=== PATIENT | male | born 1970 | race Caucasian/White ===

== ENCOUNTER 2017-04-09 22:46 | Emergency (ER) | payer SELFPAY ==
[~2017-04-09] VITALS: Ht 185.4 cm; Wt 83.5 kg
[~2017-04-09 22:46] MED LIST: AMIODARONE HCL200 MG PO; ASPIRIN CHEW81 MG PO; COREG3.125 MG PO; CYCLOBENZAPRINE10 MG PO; LASIX40 MG PO; SPIRONOLACTONE25 MG PO
[2017-04-09] MEDS ORDERED: ASPIRIN 81 MG CHEW TAB PO ONE (23:15)
[2017-04-09 23:24] LABS: BASOPHILS # (AUTO) 0.1 (0.0-0.1); EOSINOPHILS # (AUTO) 0.1 (0.0-0.4); EOSINOPHILS % 0.9 % (0.0-6.0); HEMATOCRIT 40.7 % (38.2-49.6); HEMOGLOBIN 12.8 g/dL (14.0-18.0); LYMPHOCYTES # (AUTO) 1.9 (1.0-3.2); LYMPHOCYTES % 27.3 % (18.0-39.1); MEAN CORPUSCULAR HEMOGLOBIN 31.6 pg (28-32); MEAN CORPUSCULAR HGB CONC 31.4 g/dL (31-35); MEAN CORPUSCULAR VOLUME 100.5 fL (81-99); MONOCYTES % 14.2 % (4.4-11.3); NEUTROPHILS # (AUTO) 3.9 (2.1-6.9); NEUTROPHILS % 56.3 % (38.7-80.0); PLATELET COUNT 221 x10e3/uL (140-360); RED BLOOD COUNT 4.05 x10e6/uL (4.3-5.7); RED CELL DISTRIBUTION WIDTH 15.9 % (11.7-14.4)
[2017-04-09 23:28] LABS: INR 1.72; PROTHROMBIN TIME 18.9 seconds (11.9-14.5)
[2017-04-09 23:29] LABS: PARTIAL THROMBOPLASTIN TIME 29.1 seconds (23.8-35.5)
[2017-04-09 23:47] LABS: ALBUMIN 3.5 g/dL (3.5-5.0); ALBUMIN/GLOBULIN RATIO 1.1 (0.8-2.0); ANION GAP 17.6 mmol/L (8-16); CALCIUM 8.5 mg/dL (8.4-10.2); CREATININE, SERUM 1.68 mg/dL (0.72-1.25); MAGNESIUM 2.1 MG/DL (1.3-2.1); POTASSIUM 4.6 mmol/L (3.5-5.1)
[2017-04-09 23:53] LABS: CREATINE KINASE MB 8.2 ng/mL (0.00-5.00)
[2017-04-10] MEDS ORDERED: DIATRIZOATE MEGL/DIATRIZOA SOD 30 ML BTL PO ONE (00:10)
--- NOTE | 2017-04-10 00:11 | Diagnostic Imaging Report ---
EXAMINATION: CHEST 2 VIEWS INDICATION: Shortness of breath, CHF COMPARISON: 09/21/2016 FINDINGS: TUBES and LINES: None. LUNGS: Lungs are not well inflated. There are bibasilar atelectasis. There is mild prominence of the central pulmonary vasculature, consistent with pulmonary venous congestion. PLEURA: No pleural effusion or pneumothorax. HEART AND MEDIASTINUM: Cardiac size is moderately enlarged. BONES AND SOFT TISSUES: No acute osseous lesion. Soft tissues are unremarkable. UPPER ABDOMEN: No free air under the diaphragm. IMPRESSION: 1. No acute thoracic abnormality. 2. Moderate enlargement of the heart without evidence of edema Signed by: Dr. Iron Chau M.D. on 04/10/2017 12:08 AM
[2017-04-10] MEDS ORDERED: CEFEPIME HCL 2 GM VIAL IV STA (00:33)
[2017-04-10] MEDS ORDERED: VANCOMYCIN 1GM/NS 250 ML 250 ML IV STA (00:33)
[2017-04-10 00:40] LABS: ACETAMINOPHEN < 3 ug/mL (10-30); SALICYLATE < 5.0 mg/dL (0-30)
[2017-04-10] MEDS ORDERED: FUROSEMIDE INJ 10 MG/ML 2 ML VIAL IV ONE (00:45)
[2017-04-10 01:24] LABS: CLARITY,URINE CLEAR (CLEAR); COLOR,URINE YELLOW (YELLOW); KETONES,URINE NEGATIVE (NEGATIVE); LEUKOCYTE ESTERASE ,URINE NEGATIVE (NEGATIVE); NITRITE,URINE NEGATIVE (NEGATIVE); URINE UROBILINOGEN 1 mg/dL (0.2 - 1)
[2017-04-10 01:25] LABS: AMPHETAMINES SCREEN,URINE NEGATIVE (NEGATIVE); PHENCYCLIDINE SCREEN,URINE NEGATIVE (NEGATIVE)
[2017-04-10 01:26] LABS: BENZODIAZEPINES SCREEN,URINE NEGATIVE (NEGATIVE)
[2017-04-10 01:27] LABS: BILIRUBIN,URINE 1+ (NEGATIVE); PROTEIN,URINE DIPSTICK 2+ (NEGATIVE)
[2017-04-10 01:34] LABS: BACTERIA,URINE FEW /HPF; EPITHELIAL CELLS,URINE FEW /LPF; HYALINE CASTS >15 (0-1); RBC,URINE 0-5 /HPF (0-5)
--- NOTE | 2017-04-10 02:21 | Diagnostic Imaging Report ---
EXAM: CT Abdomen and Pelvis WITHOUT contrast INDICATION: Abdominal distention COMPARISON: None. TECHNIQUE: Abdomen and pelvis were scanned utilizing a multidetector helical scanner from the lung base to the pubic symphysis without administration of IV contrast. Absence of intravenous contrast decreases sensitivity for detection of focal lesions and vascular pathology. Coronal and sagittal reformations were obtained. Routine protocol was performed. IV CONTRAST: None. ORAL CONTRAST: Gastrografin RADIATION DOSE: Total DLP: 625.42 mGy*cm Estimated effective dose: (DLP x 0.015 x size factor) mSv COMPLICATIONS: None FINDINGS: LINES and TUBES: None. LOWER THORAX: Moderate, global enlargement of the heart also seated with minimal mosaic attenuation of the lungs HEPATOBILIARY: No focal hepatic lesions. No biliary ductal dilation. GALLBLADDER: No radio-opaque stones or sludge. The gallbladder is partially distended limiting the evaluation SPLEEN: No splenomegaly. PANCREAS: No focal masses or ductal dilatation. ADRENALS: No adrenal nodules KIDNEYS/URETERS: No hydronephrosis. No cystic or solid mass lesions. No stones. GI TRACT: No abnormal distention, wall thickening, or evidence of bowel obstruction. There are diverticula within the colon without evidence of diverticulitis. Appendix is not clearly identified. There is however no fat stranding or adenopathy in the right lower quadrant to suggest appendicitis. PELVIC ORGANS/BLADDER: Unremarkable. LYMPH NODES: No lymphadenopathy. VESSELS: Unremarkable. PERITONEUM / RETROPERITONEUM: There is moderate of amount of free fluid in the abdomen and pelvis. BONES: Unremarkable. SOFT TISSUES: There is mild diffuse anarsarca. IMPRESSION: 1. Peritoneal and retroperitoneal edema associated with small amount of ascites and mild anasarca is suggestive of congestive heart failure. 2. Minimal mosaic attenuation of the lungs suggestive of early pulmonary edema Signed by: Dr. Iron Chau M.D. on 04/10/2017 2:17 AM
== END 2017-04-10 02:40 | disposition short-term general hospital (02) ==
LOC: ER 22:51
DX: R06.00 Dyspnea, unspecified (principal); I50.43 Acute on chronic combined systolic (congestive) and diastolic (congestive) heart failure; I50.1 Left ventricular failure, unspecified; N28.9 Disorder of kidney and ureter, unspecified; B17.9 Acute viral hepatitis, unspecified; I10 Essential (primary) hypertension
CPT/HCPCS: 36415; 71046; 74176; 80053; 80307; 80320; 80329 ×2; 81001; 82140; 82550; 82553; 83605; 83690; 83735; 83880; 84484; 85025; 85610; 85730; 87040; 87071; 87086; 87205; 93005; 99284; J0692; J1940; J3370

== ENCOUNTER 2018-09-05 17:38 | Inpatient (IN) | payer MEDICARE, OTHER ==
[~2018-09-05] VITALS: Ht 185.4 cm; Wt 87.1 kg
--- OUTSIDE RECORDS SUMMARY | 2018-09-05 17:41 | XMS REPORT | Clinical Summary ---
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 Active amiodarone (PACERONE) 200 Take 1 tablet 90 tablet 0 201 MG tablet (200 mg 8 total) by mouth daily. Active ferrous sulfate 325 (65 Take 325 mg 0 FE) MG tablet by mouth daily with breakfast. Active coenzyme Q10 100 mg Take 100 mg 0 capsule by mouth daily. Active omega-3 fatty acids (FISH Take 500 mg 0 OIL) 500 mg Cap by mouth daily. Active garlic 500 mg Cap Take 1 0 capsule by mouth daily. 04/15/2018 metoprolol (TOPROL-XL) 50 Take 1 tablet 90 tablet 0 201 MG 24 hr tablet (50 mg total) 8 by mouth daily. 04/14/2018 bumetanide (BUMEX) 1 MG Take 1 tablet 90 tablet 0 tablet (1 mg total) 8 by mouth 2 (two) times daily. 04/15/2018 lisinopril Take 1 tablet 90 tablet 0 (PRINIVIL,ZESTRIL) 5 MG (5 mg total) 8 tablet by mouth daily. 04/14/2018 spironolactone Take 1 tablet 90 tablet 3 (ALDACTONE) 25 MG tablet (25 mg total) 8 by mouth daily. Active Problems Problem Noted Date PAH (pulmonary artery hypertension) 05/04/2017 Smoker 05/04/2017 Substance abuse 05/04/2017 Overview: Quit 2 years ago H/O medication noncompliance 04/10/2017 Atrial fibrillation 04/10/2017 Chronic combined systolic and diastolic CHF (congestive heart failure) 04/10/2017 Family History Medical History Relation Name Comments Hyperlipidemia Father Relation Name Status Comments Father Social History Date Tobacco Use Types Packs/Day Years Used Current Every Day Smoker Cigarettes 0.5 10 Smokeless Tobacco: Never Used Tobacco Cessation: Ready to Quit: Yes; Counseling Given: Yes Alcohol Use Drinks/Week oz/Week Comments No quit drinking six years ago Sex Assigned at Date Recorded Not on file Industry Job Start Date Occupation Not on file Not on file Not on file Travel End Travel History Travel Start No recent travel history available. Last Filed Vital Signs Not on file Plan of Treatment Not on file Results Not on fileafter 09/04/2017 Advance Directives For more information, please contact: [facility] [address] [place] [address] Date Inactivated Comments Code Status Date Activated 04/14/2017 12:58 PM Full Code 04/10/2017 4:47 AM This code status was determined by: Patient
--- OUTSIDE RECORDS SUMMARY | 2018-09-05 17:41 | XMS REPORT | Clinical Summary ---
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 Name Role Phone Asked, No Pcp PCP Unavailable Allergies No Known Allergies Medications No known medications Active Problems Problem Noted Date Alcohol use disorder, severe, dependence 07/17/2016 Antisocial personality disorder in adult 07/17/2016 Cellulitis of lower extremity 07/17/2016 Acute on chronic congestive heart failure 07/15/2016 Social History Date Tobacco Use Types Packs/Day Years Used Heavy Tobacco Smoker Cigarettes 0.5 Alcohol Use Drinks/Week oz/Week Comments Yes drank heavily until 2 months ago no only on weekends Sex Assigned at Date Recorded Not on file Industry Job Start Date Occupation Not on file Not on file Not on file Travel End Travel History Travel Start No recent travel history available. Last Filed Vital Signs Not on file Plan of Treatment Health Maintenance Due Date Last Done Comments INFLUENZA VACCINE 09/28/2018 Results Not on fileafter 09/04/2017 Insurance Type Payer Benefit Subscriber ID Effective Phone Address Plan / Dates Group Medicaid MEDICAID MEDICAID xxxxxxxxx [id number] resent Medicaid PENDING MEDICAID PENDING xxxxxxxxx 2016-[id number] DISABILITY resent MEDICAID COVERAGE Advance Directives Patient has advance care planning documents on file. For more information, mihir pineda contact: Valdemar Lawson [address] [place] [phone]
--- OUTSIDE RECORDS SUMMARY | 2018-09-05 17:41 | XMS REPORT ---
Author Author [facility] Address Unknown Phone Unavailable Care Team Providers Care Food And Beverage Coordinator Name Role Phone SHERRI MCINTOSH Unavailable Unavailable YANA VILLEGAS Unavailable Unavailable SWEET, A LAIRD Unavailable Unavailable Problems This patient has no known problems. Allergies, Adverse Reactions, Alerts This patient has no known allergies or adverse reactions. Medications This patient has no known medications. Results Test Description Test Time Test Comments Text Results Atomic Results Result Comments B-TYPE NATRIURETIC FACTOR (BNP) 2017-05-04 13:38:00 B-TYPE NATRIURETIC PEPTIDE (BEAKER) (test budu=778) 3236 pg/mL 0-100 [id number] 13:28:00* Test Item Value Reference Range Comments MAGNESIUM (BEAKER) (test oisb=523) 2.0 mg/dL 1.6-2.6 BASIC METABOLIC [id number] 13:28:00* Test Item Value Reference Range Comments SODIUM (BEAKER) (test rrzh=912) 136 meq/L 136-145 POTASSIUM (BEAKER) (test nkvz=490) 4.1 meq/L 3.5-5.1 CHLORIDE (BEAKER) (test iojy=387) 100 meq/L 98-107 CO2 (BEAKER) (test imtw=593) 27 meq/L 22-29 BLOOD UREA NITROGEN (BEAKER) (test icoy=900) 31 mg/dL 7-21 CREATININE (BEAKER) (test uuxz=833) 1.55 mg/dL 0.57-1.25 GLUCOSE RANDOM (BEAKER) (test jajv=378) 79 mg/dL 70-105 CALCIUM (BEAKER) (test zgep=674) 8.9 mg/dL 8.4-10.2 EGFR (BEAKER) (test piks=1470) 49 mL/min/1.73 sq m ESTIMATED GFR IS NOT ACCURATE CREATININE CLEARANCE IN PREDICTING GLOMERULAR FILTRATION RATE. ESTIMATED GFR IS NOT APPLICABLE FOR DIALYSIS PATIENTS. [id number] 05:09:00* Test Item Value Reference Range Comments MAGNESIUM (BEAKER) (test flsh=948) 2.1 mg/dL 1.6-2.6 BASIC METABOLIC [id number] 05:09:00* Test Item Value Reference Range Comments SODIUM (BEAKER) (test xvlh=772) 136 meq/L 136-145 POTASSIUM (BEAKER) (test lhsg=889) 3.9 meq/L 3.5-5.1 CHLORIDE (BEAKER) (test rwza=051) 98 meq/L 98-107 CO2 (BEAKER) (test qwlu=468) 28 meq/L 22-29 BLOOD UREA NITROGEN (BEAKER) (test rhlk=122) 25 mg/dL 7-21 CREATININE (BEAKER) (test ghuk=491) 1.24 mg/dL 0.57-1.25 GLUCOSE RANDOM (BEAKER) (test ynti=959) 89 mg/dL 70-105 CALCIUM (BEAKER) (test buod=152) 9.2 mg/dL 8.4-10.2 EGFR (BEAKER) (test wyvm=1827) 63 mL/min/1.73 sq m ESTIMATED GFR IS NOT ACCURATE CREATININE CLEARANCE IN PREDICTING GLOMERULAR FILTRATION RATE. ESTIMATED GFR IS NOT APPLICABLE FOR DIALYSIS PATIENTS. CBC W/PLT COUNT & AUTO [id number] 04:57:00* Test Item Value Reference Range Comments WHITE BLOOD CELL COUNT (BEAKER) (test rcau=784) 5.2 K/ L 3.5-10.5 RED BLOOD CELL COUNT (BEAKER) (test psky=124) 4.31 M/ L 4.63-6.08 HEMOGLOBIN (BEAKER) (test wptj=293) 13.4 GM/DL 13.7-17.5 HEMATOCRIT (BEAKER) (test nwbw=256) 41.7 % 40.1-51.0 MEAN CORPUSCULAR VOLUME (BEAKER) (test bsxj=374) 96.8 fL 79.0-92.2 MEAN CORPUSCULAR HEMOGLOBIN (BEAKER) (test ntdo=335) 31.1 pg 25.7-32.2 MEAN CORPUSCULAR HEMOGLOBIN CONC (BEAKER) (test dfxd=541) 32.1 GM/DL 32.3-36.5 RED CELL DISTRIBUTION WIDTH (BEAKER) (test jxga=571) 15.4 % 11.6-14.4 PLATELET COUNT (BEAKER) (test twwg=043) 186 K/CU MM 150-450 MEAN PLATELET VOLUME (BEAKER) (test hvra=683) 10.6 fL 9.4-12.4 NUCLEATED RED BLOOD CELLS (BEAKER) (test xivq=327) 0 /100 WBC 0-0 NEUTROPHILS RELATIVE PERCENT (BEAKER) (test hawc=999) 45 % LYMPHOCYTES RELATIVE PERCENT (BEAKER) (test snki=501) 36 % MONOCYTES RELATIVE PERCENT (BEAKER) (test aizr=310) 16 % EOSINOPHILS RELATIVE PERCENT (BEAKER) (test swjc=290) 2 % BASOPHILS RELATIVE PERCENT (BEAKER) (test iyxq=349) 1 % NEUTROPHILS ABSOLUTE COUNT (BEAKER) (test pltx=882) 2.34 K/ L 1.78-5.38 LYMPHOCYTES ABSOLUTE COUNT (BEAKER) (test jmly=529) 1.90 K/ L 1.32-3.57 MONOCYTES ABSOLUTE COUNT (BEAKER) (test file=122) 0.82 K/ L 0.30-0.82 EOSINOPHILS ABSOLUTE COUNT (BEAKER) (test hjib=883) 0.09 K/ L 0.04-0.54 BASOPHILS ABSOLUTE COUNT (BEAKER) (test hnoz=848) 0.07 K/ L 0.01-0.08 IMMATURE GRANULOCYTES-RELATIVE PERCENT (BEAKER) (test uxgz=9624) 0 % 0-1 B-TYPE NATRIURETIC FACTOR (BNP)2017-04-13 09:04:00* Test Item Value Reference Range Comments B-TYPE NATRIURETIC PEPTIDE (BEAKER) (test rplg=078) 2000 pg/mL 0-100 COMPREHENSIVE METABOLIC [id number] 05:43:00* Test Item Value Reference Range Comments TOTAL PROTEIN (BEAKER) (test lyzo=590) 6.3 gm/dL 6.0-8.3 ALBUMIN (BEAKER) (test jfek=8741) 3.5 g/dL 3.5-5.0 ALKALINE PHOSPHATASE (BEAKER) (test flid=782) 96 U/L 40-150 BILIRUBIN TOTAL (BEAKER) (test bxvq=470) 1.9 mg/dL 0.2-1.2 SODIUM (BEAKER) (test jxrk=039) 135 meq/L 136-145 POTASSIUM (BEAKER) (test bovt=813) 3.7 meq/L 3.5-5.1 CHLORIDE (BEAKER) (test vjtb=519) 98 meq/L 98-107 CO2 (BEAKER) (test qogy=691) 30 meq/L 22-29 BLOOD UREA NITROGEN (BEAKER) (test uhgw=264) 21 mg/dL 7-21 CREATININE (BEAKER) (test vhhb=334) 1.23 mg/dL 0.57-1.25 GLUCOSE RANDOM (BEAKER) (test lzdr=779) 82 mg/dL 70-105 CALCIUM (BEAKER) (test zbuu=297) 9.2 mg/dL 8.4-10.2 AST (SGOT) (BEAKER) (test smcf=703) 38 U/L 5-34 ALT (SGPT) (BEAKER) (test yqyq=857) 150 U/L 6-55 EGFR (BEAKER) (test uiif=9887) 64 mL/min/1.73 sq m ESTIMATED GFR IS NOT ACCURATE CREATININE CLEARANCE IN PREDICTING GLOMERULAR FILTRATION RATE. ESTIMATED GFR IS NOT APPLICABLE FOR DIALYSIS PATIENTS. [id number] 05:42:00* Test Item Value Reference Range Comments PHOSPHORUS (BEAKER) (test xfcg=613) 3.4 mg/dL 2.3-4.7 [id number] 05:42:00* Test Item Value Reference Range Comments MAGNESIUM (BEAKER) (test mmhn=222) 2.0 mg/dL 1.6-2.6 CBC W/PLT COUNT & AUTO [id number] 05:02:00* Test Item Value Reference Range Comments WHITE BLOOD CELL COUNT (BEAKER) (test pgvt=931) 5.6 K/ L 3.5-10.5 RED BLOOD CELL COUNT (BEAKER) (test qjmq=155) 4.15 M/ L 4.63-6.08 HEMOGLOBIN (BEAKER) (test wgrj=130) 13.0 GM/DL 13.7-17.5 HEMATOCRIT (BEAKER) (test kmnq=976) 40.9 % 40.1-51.0 MEAN CORPUSCULAR VOLUME (BEAKER) (test lzbc=582) 98.6 fL 79.0-92.2 MEAN CORPUSCULAR HEMOGLOBIN (BEAKER) (test apnz=382) 31.3 pg 25.7-32.2 MEAN CORPUSCULAR HEMOGLOBIN CONC (BEAKER) (test kook=130) 31.8 GM/DL 32.3-36.5 RED CELL DISTRIBUTION WIDTH (BEAKER) (test kwnx=982) 15.7 % 11.6-14.4 PLATELET COUNT (BEAKER) (test tvva=859) 176 K/CU MM 150-450 MEAN PLATELET VOLUME (BEAKER) (test tyev=517) 10.4 fL 9.4-12.4 NUCLEATED RED BLOOD CELLS (BEAKER) (test anfx=436) 0 /100 WBC 0-0 NEUTROPHILS RELATIVE PERCENT (BEAKER) (test mglv=037) 51 % LYMPHOCYTES RELATIVE PERCENT (BEAKER) (test wwam=251) 31 % MONOCYTES RELATIVE PERCENT (BEAKER) (test toaw=440) 15 % EOSINOPHILS RELATIVE PERCENT (BEAKER) (test cvbk=634) 2 % BASOPHILS RELATIVE PERCENT (BEAKER) (test chyg=209) 1 % NEUTROPHILS ABSOLUTE COUNT (BEAKER) (test hmxl=634) 2.86 K/ L 1.78-5.38 LYMPHOCYTES ABSOLUTE COUNT (BEAKER) (test uqmd=549) 1.72 K/ L 1.32-3.57 MONOCYTES ABSOLUTE COUNT (BEAKER) (test eihk=117) 0.82 K/ L 0.30-0.82 EOSINOPHILS ABSOLUTE COUNT (BEAKER) (test qoph=654) 0.09 K/ L 0.04-0.54 BASOPHILS ABSOLUTE COUNT (BEAKER) (test nzwj=260) 0.07 K/ L 0.01-0.08 IMMATURE GRANULOCYTES-RELATIVE PERCENT (BEAKER) (test vqwf=9184) 0 % 0-1 [id number] 05:48:00* Test Item Value Reference Range Comments MAGNESIUM (BEAKER) (test xkhz=100) 2.0 mg/dL 1.6-2.6 Specimen slightly hemolyzed [id number] 05:48:00* Test Item Value Reference Range Comments PHOSPHORUS (BEAKER) (test auzt=748) 2.5 mg/dL 2.3-4.7 Specimen slightly hemolyzed BASIC METABOLIC [id number] 05:48:00* Test Item Value Reference Range Comments SODIUM (BEAKER) (test tgsx=616) 138 meq/L 136-145 POTASSIUM (BEAKER) (test ttza=251) 3.3 meq/L 3.5-5.1 Specimen slightly hemolyzed CHLORIDE (BEAKER) (test xlri=627) 97 meq/L 98-107 CO2 (BEAKER) (test kyxn=184) 31 meq/L 22-29 BLOOD UREA NITROGEN (BEAKER) (test ocah=162) 19 mg/dL 7-21 CREATININE (BEAKER) (test xlkw=496) 1.31 mg/dL 0.57-1.25 Specimen slightly hemolyzed GLUCOSE RANDOM (BEAKER) (test wqdo=475) 91 mg/dL 70-105 CALCIUM (BEAKER) (test atwf=302) 8.4 mg/dL 8.4-10.2 EGFR (BEAKER) (test fpiw=6196) 59 mL/min/1.73 sq m ESTIMATED GFR IS NOT ACCURATE CREATININE CLEARANCE IN PREDICTING GLOMERULAR FILTRATION RATE. ESTIMATED GFR IS NOT APPLICABLE FOR DIALYSIS PATIENTS. Specimen slightly ictericCBC W/PLT COUNT & AUTO [id number] 05:28:00 * Test Item Value Reference Range Comments WHITE BLOOD CELL COUNT (BEAKER) (test eviz=421) 5.7 K/ L 3.5-10.5 RED BLOOD CELL COUNT (BEAKER) (test xnhc=741) 3.85 M/ L 4.63-6.08 HEMOGLOBIN (BEAKER) (test xxao=227) 12.1 GM/DL 13.7-17.5 HEMATOCRIT (BEAKER) (test nhuv=587) 38.1 % 40.1-51.0 MEAN CORPUSCULAR VOLUME (BEAKER) (test lnlk=824) 99.0 fL 79.0-92.2 MEAN CORPUSCULAR HEMOGLOBIN (BEAKER) (test pxya=762) 31.4 pg 25.7-32.2 MEAN CORPUSCULAR HEMOGLOBIN CONC (BEAKER) (test blgf=866) 31.8 GM/DL 32.3-36.5 RED CELL DISTRIBUTION WIDTH (BEAKER) (test htrj=581) 15.8 % 11.6-14.4 PLATELET COUNT (BEAKER) (test yymu=524) 177 K/CU MM 150-450 MEAN PLATELET VOLUME (BEAKER) (test exfp=624) 10.7 fL 9.4-12.4 NUCLEATED RED BLOOD CELLS (BEAKER) (test urfq=515) 0 /100 WBC 0-0 NEUTROPHILS RELATIVE PERCENT (BEAKER) (test llbq=578) 61 % LYMPHOCYTES RELATIVE PERCENT (BEAKER) (test yhda=414) 24 % MONOCYTES RELATIVE PERCENT (BEAKER) (test txcb=803) 13 % EOSINOPHILS RELATIVE PERCENT (BEAKER) (test xyjw=549) 1 % BASOPHILS RELATIVE PERCENT (BEAKER) (test akeq=845) 1 % NEUTROPHILS ABSOLUTE COUNT (BEAKER) (test napp=192) 3.47 K/ L 1.78-5.38 LYMPHOCYTES ABSOLUTE COUNT (BEAKER) (test svya=772) 1.36 K/ L 1.32-3.57 MONOCYTES ABSOLUTE COUNT (BEAKER) (test nqpr=125) 0.73 K/ L 0.30-0.82 EOSINOPHILS ABSOLUTE COUNT (BEAKER) (test lwpf=487) 0.06 K/ L 0.04-0.54 BASOPHILS ABSOLUTE COUNT (BEAKER) (test syxe=109) 0.06 K/ L 0.01-0.08 IMMATURE GRANULOCYTES-RELATIVE PERCENT (BEAKER) (test uopz=0713) 0 % 0-1 [id number] 16:47:00* Test Item Value Reference Range Comments POTASSIUM (BEAKER) (test jyta=361) 3.5 meq/L 3.5-5.1 Check Serum Potassium level 2 hours after oral potassium replacement completed o r 30 min after intravenous potassium replacement.[id number] 16:47:00* Test Item Value Reference Range Comments MAGNESIUM (BEAKER) (test blek=536) 1.8 mg/dL 1.6-2.6 Check Serum Potassium level 2 hours after oral potassium replacement completed o r 30 min after intravenous potassium replacement.ANTI-NUCLEAR ANTIBODY () 2017-04-11 13:59:00* Test Item Value Reference Range Comments ANTI-NUCLEAR ANTIBODY () (BEAKER) (test nqpi=906) Negative Negative U/S, ABDOMINAL, [id number] 13:07:00Reason for exam:->transaminitis, and AKIFINAL REPORT Abdominal Ultrasound Clinical Diagnosis: Transaminitis and acute kidney injury Comparison: No comparison Technique: Multiple transaxial and longitudinal images were obtained through the abdomen with real time ultrasonography. Five MHz transducer was utilized. 119 images were submitted for interpretation. Report:Liver: The liver measures 13.5 cm in the right midaxillary line. There are no focal masses. The echogenicity is within normal limits.Spleen: The spleen measures 11.5 cm. in the left mid axillary line. Gallbladder: The transverse diameter is 2.5 cm. The wall measures three mm. There are no shadowing stones visualized. A possible polyp is present. The gallbladder was not well distended. It adherent nonechogenic sludge may be responsible for this finding. A follow-up study is recommended if clinically appropriate. The maximum dimension was 1.2 cm. Biliary tree: There is no evidence of intra or extra hepatic biliary ductal dilatation. The common bile duct measures five mm.Portal vein: The portal vein measures 11 mm. Pancreas: The pancreatic tail is not well seen secondary to overlying bowel gas. Ascites: TracePleural Effusion: NegativeRight kidney: The right kidney measures 10.7 cm. in length without evidence of hydronephrosis.Left kidney: The left kidney measures 11.5 cm. in length without evidence of hydronephrosis.IVC/Aorta: Partially seen segments demonstrate no abnormality. Maximum transverse dimension of aorta is 2 cm. Impression:Trace ascites.Possible polyp within the gallbladder. This study was limited since the gallbladder was not well distended. A follow-up studies recommended if clinically appropriate. Signed: Jessica Sanabria MDReport Verified Date/Time: 04/11/2017 13:07:41 Reading Location: [address] Ultrasound Reading Room TITIS PANEL, [id number] 06:32:00* Test Item Value Reference Range Comments HEPATITIS A IGM ANTIBODY (BEAKER) (test mybv=121) Nonreactive Nonreactive HEPATITIS B CORE IGM ANTIBODY (BEAKER) (test vqho=318) Nonreactive Nonreactive HEPATITIS C ANTIBODY (BEAKER) (test jmrl=111) Nonreactive Nonreactive HEPATITIS B SURFACE ANTIGEN (2) (BEAKER) (test uqzd=5425) Nonreactive Nonreactive [id number] 06:25:00* Test Item Value Reference Range Comments MAGNESIUM (BEAKER) (test gpmu=329) 1.9 mg/dL 1.6-2.6 Specimen slightly hemolyzed [id number] 06:25:00* Test Item Value Reference Range Comments PHOSPHORUS (BEAKER) (test pqgu=860) 3.3 mg/dL 2.3-4.7 Specimen slightly hemolyzed BASIC METABOLIC [id number] 06:25:00* Test Item Value Reference Range Comments SODIUM (BEAKER) (test kpba=160) 137 meq/L 136-145 POTASSIUM (BEAKER) (test bmmb=879) 3.3 meq/L 3.5-5.1 Specimen slightly hemolyzed CHLORIDE (BEAKER) (test jrdf=550) 98 meq/L 98-107 CO2 (BEAKER) (test qoug=301) 29 meq/L 22-29 BLOOD UREA NITROGEN (BEAKER) (test ddiu=027) 27 mg/dL 7-21 CREATININE (BEAKER) (test ilyy=591) 1.38 mg/dL 0.57-1.25 Specimen slightly hemolyzed GLUCOSE RANDOM (BEAKER) (test ppio=706) 83 mg/dL 70-105 CALCIUM (BEAKER) (test mhna=418) 8.1 mg/dL 8.4-10.2 EGFR (BEAKER) (test vbza=8852) 56 mL/min/1.73 sq m ESTIMATED GFR IS NOT ACCURATE CREATININE CLEARANCE IN PREDICTING GLOMERULAR FILTRATION RATE. ESTIMATED GFR IS NOT APPLICABLE FOR DIALYSIS PATIENTS. CBC W/PLT COUNT & AUTO [id number] 05:31:00* Test Item Value Reference Range Comments WHITE BLOOD CELL COUNT (BEAKER) (test eqgo=069) 5.2 K/ L 3.5-10.5 RED BLOOD CELL COUNT (BEAKER) (test oqdb=173) 3.79 M/ L 4.63-6.08 HEMOGLOBIN (BEAKER) (test lmvt=368) 12.0 GM/DL 13.7-17.5 HEMATOCRIT (BEAKER) (test fdsv=941) 37.4 % 40.1-51.0 MEAN CORPUSCULAR VOLUME (BEAKER) (test kasj=476) 98.7 fL 79.0-92.2 MEAN CORPUSCULAR HEMOGLOBIN (BEAKER) (test zskz=721) 31.7 pg 25.7-32.2 MEAN CORPUSCULAR HEMOGLOBIN CONC (BEAKER) (test nbxj=188) 32.1 GM/DL 32.3-36.5 RED CELL DISTRIBUTION WIDTH (BEAKER) (test ftbb=355) 15.8 % 11.6-14.4 PLATELET COUNT (BEAKER) (test jwqe=351) 176 K/CU MM 150-450 MEAN PLATELET VOLUME (BEAKER) (test umxw=478) 10.6 fL 9.4-12.4 NUCLEATED RED BLOOD CELLS (BEAKER) (test vmrr=690) 0 /100 WBC 0-0 NEUTROPHILS RELATIVE PERCENT (BEAKER) (test gvwe=821) 50 % LYMPHOCYTES RELATIVE PERCENT (BEAKER) (test jqkv=478) 33 % MONOCYTES RELATIVE PERCENT (BEAKER) (test npvy=693) 14 % EOSINOPHILS RELATIVE PERCENT (BEAKER) (test pbzm=355) 1 % BASOPHILS RELATIVE PERCENT (BEAKER) (test hhvs=746) 2 % NEUTROPHILS ABSOLUTE COUNT (BEAKER) (test pgwi=231) 2.60 K/ L 1.78-5.38 LYMPHOCYTES ABSOLUTE COUNT (BEAKER) (test topy=538) 1.72 K/ L 1.32-3.57 MONOCYTES ABSOLUTE COUNT (BEAKER) (test abid=445) 0.71 K/ L 0.30-0.82 EOSINOPHILS ABSOLUTE COUNT (BEAKER) (test lqkr=215) 0.07 K/ L 0.04-0.54 BASOPHILS ABSOLUTE COUNT (BEAKER) (test ckbb=965) 0.08 K/ L 0.01-0.08 IMMATURE GRANULOCYTES-RELATIVE PERCENT (BEAKER) (test mpwp=3200) 0 % 0-1 CREATINE KINASE (CK), TOTAL AND [id number] 00:33:00* Test Item Value Reference Range Comments CREATINE KINASE TOTAL (BEAKER) (test bvto=179) 225 U/L 29-200 CREATINE KINASE-MB (BEAKER) (test xlby=383) 6.3 ng/mL 0.0-6.6 CREATINE KINASE-MB INDEX (BEAKER) (test fcds=151) 2.8 % CK-MB Reference Range:<6.7 Normal6.7-10.0 Borderline>10.0 Abnormal TROPONIN [id number] 00:33:00* Test Item Value Reference Range Comments TROPONIN I (BEAKER) (test ykgf=667) 0.03 ng/mL 0.00-0.03 Troponin I (TnI) levels must be interpreted in the context of the presenting sym ptoms and the clinical findings. Elevated TnI levels indicate myocardial damage, but are not specific for ischemic heart disease. Elevated TnI levels are seen in patients with other cardiac conditions (including myocarditis and congestive h eart failure), and slight TnI elevations occur in patients with other conditions , including sepsis, renal failure, acidosis, acute neurological disease, and per sistent tachyarrhythmia.SODIUM, RANDOM [id number] 19:17:00* Test Item Value Reference Range Comments SODIUM URINE (BEAKER) (test eurl=380) < meq/L Reference Range: No NormalsCREATININE, RANDOM [id number] 19:11:00* Test Item Value Reference Range Comments CREATININE URINE (BEAKER) (test tlxi=664) 72.9 mg/dL Reference Range: No NormalsPROTEIN, RANDOM [id number] 19:11:00* Test Item Value Reference Range Comments PROTEIN, URINE (BEAKER) (test vfmu=9081) 8 mg/dL 0-14 CREATINE KINASE (CK), TOTAL AND [id number] 17:32:00* Test Item Value Reference Range Comments CREATINE KINASE TOTAL (BEAKER) (test gzjc=682) 246 U/L 29-200 CREATINE KINASE-MB (BEAKER) (test ajpg=629) 7.7 ng/mL 0.0-6.6 CREATINE KINASE-MB INDEX (BEAKER) (test kojx=109) 3.1 % CK-MB Reference Range:<6.7 Normal6.7-10.0 Borderline>10.0 Abnormal TROPONIN [id number] 17:32:00* Test Item Value Reference Range Comments TROPONIN I (BEAKER) (test wtxc=702) 0.03 ng/mL 0.00-0.03 Troponin I (TnI) levels must be interpreted in the context of the presenting sym ptoms and the clinical findings. Elevated TnI levels indicate myocardial damage, but are not specific for ischemic heart disease. Elevated TnI levels are seen in patients with other cardiac conditions (including myocarditis and congestive h eart failure), and slight TnI elevations occur in patients with other conditions , including sepsis, renal failure, acidosis, acute neurological disease, and per sistent tachyarrhythmia.[id number] 17:24:00* Test Item Value Reference Range Comments MAGNESIUM (BEAKER) (test wkfo=146) 2.1 mg/dL 1.6-2.6 Specimen slightly hemolyzed BASIC METABOLIC [id number] 17:24:00* Test Item Value Reference Range Comments SODIUM (BEAKER) (test qbeb=439) 135 meq/L 136-145 POTASSIUM (BEAKER) (test lmnn=468) 4.0 meq/L 3.5-5.1 Specimen slightly hemolyzed CHLORIDE (BEAKER) (test gqns=492) 98 meq/L 98-107 CO2 (BEAKER) (test uziu=073) 27 meq/L 22-29 BLOOD UREA NITROGEN (BEAKER) (test mrbx=278) 29 mg/dL 7-21 CREATININE (BEAKER) (test ltgn=045) 1.62 mg/dL 0.57-1.25 Specimen slightly hemolyzed GLUCOSE RANDOM (BEAKER) (test rsyd=232) 68 mg/dL 70-105 CALCIUM (BEAKER) (test zahq=444) 8.5 mg/dL 8.4-10.2 EGFR (BEAKER) (test nyoj=8888) 47 mL/min/1.73 sq m ESTIMATED GFR IS NOT ACCURATE CREATININE CLEARANCE IN PREDICTING GLOMERULAR FILTRATION RATE. ESTIMATED GFR IS NOT APPLICABLE FOR DIALYSIS PATIENTS. HIV-1 ANTIGEN WITH HIV-1/2 [id number] 09:54:00* Test Item Value Reference Range Comments HIV-1 ANTIGEN WITH HIV 1\T\2 ANTIBODY (2) (BEAKER) (test srzu=3520) Nonreactive Nonreactive RAPID DRUG SCREEN, [id number] 09:30:00* Test Item Value Reference Range Comments BARBITURATE URINE (BEAKER) (test oywx=940) Negative Negative BENZODIAZEPINE SCREEN URINE (BEAKER) (test ahnv=344) Negative Negative COCAINE (METAB.) SCREEN (BEAKER) (test nimq=1050) Negative Negative METHADONE SCREEN (BEAKER) (test kvmb=2028) Negative Negative OPIATE SCREEN URINE (BEAKER) (test rrcr=043) Negative Negative CANNABINOID SCREEN URINE (BEAKER) (test kksl=881) Negative Negative AMPH/METHAMPH SCREEN (BEAKER) (test rugq=1648) Negative Negative PHENCYCLIDINE SCREEN URINE (BEAKER) (test ecnx=835) Negative Negative OXYCODONE SCREEN URINE (BEAKER) (test uwku=8505) Negative Negative DRUG CUTOFF CONC.Cocaine 300 ng/mL Cannabinoid 50 ng/mL Benzodiazepine 200 ng/mLBarbiturate 200 ng/mLPh encyclidine 25 ng/mLOpiate 300 ng/mLMethadone 300 ng/mLAmphetamine/ 1000 ng/mL MethamphetamineOxycodone 300 ng/mLThis assay provides an unconfirmed qualitative test result for the cli nical management of patients in emergency situations. Chain of custody not maint ained. Some bhzt-ngp-lgrziem medications, as well as adulterants, may cause inac curate results. Clinical correlation should be applied. A more comprehensive maria e g screen or confirmation of a detected drug may be performed upon request. URINALYSIS W/ [id number] 08:58:00* Test Item Value Reference Range Comments COLOR (BEAKER) (test dipf=099) Light Yellow CLARITY (BEAKER) (test xfgc=204) Clear SPECIFIC GRAVITY UA (BEAKER) (test eerp=679) 1.006 1.001-1.035 PH UA (BEAKER) (test xcnx=817) 6.5 5.0-8.0 PROTEIN UA (BEAKER) (test xjfz=701) Negative Negative GLUCOSE UA (BEAKER) (test dkfq=417) Negative Negative KETONES UA (BEAKER) (test fjws=696) Negative Negative BILIRUBIN UA (BEAKER) (test jnhh=445) Negative Negative BLOOD UA (BEAKER) (test ijvw=042) Negative Negative NITRITE UA (BEAKER) (test fryc=716) Negative Negative LEUKOCYTE ESTERASE UA (BEAKER) (test aauo=075) Negative Negative UROBILINOGEN UA (BEAKER) (test qqho=735) 0.2 mg/dL 0.2-1.0 RBC UA (BEAKER) (test zadj=670) < /HPF WBC UA (BEAKER) (test fvca=963) < /HPF HYALINE CASTS (BEAKER) (test tcra=795) 2 /LPF SOURCE(BEAKER) (test lqap=6499) T4, [id number] 08:47:00* Test Item Value Reference Range Comments FREE T4 (BEAKER) (test qcov=286) 1.23 ng/dL 0.70-1.48 [id number] 08:47:00* Test Item Value Reference Range Comments THYROID STIMULATING HORMONE (BEAKER) (test uzkg=178) 3.87 uIU/mL 0.35-4.94 [id number] 08:47:00* Test Item Value Reference Range Comments FERRITIN (BEAKER) (test qlqx=789) 71 ng/mL 5-275 IRON, TIBC, % SAT. (WITHOUT FERRITIN)2017-04-10 08:30:00* Test Item Value Reference Range Comments IRON (BEAKER) (test tvjv=062) 46 ug/dL 40-160 TOTAL IRON BINDING CAPACITY (BEAKER) (test chps=499) 394 ug/dL 250-450 IRON % SATURATION (2) (BEAKER) (test fasb=4704) 12 % 20-55 RAD, CHEST, 1 VIEW, NON [id number] 07:11:00Reason for exam:->CHFShould this be performed at the bedside?->YesFINAL REPORT Chest, one view HISTORY: CHF COMPARISON: None. DISCUSSION: Cardiomediastinal silhouette is enlarged. Lungs are grossly clear without focal consolidation. There is minimal interstitial edema. No large pleural effusion or pneumothorax. No acute osseous abnormality. IMPRESSION: Enlargement of the cardiomediastinal silhouette with minimal interstitial edema. Signed: Oleksandr Sawyer MDReport Verified Date/Time: 04/10/2017 07:11:45 Reading Location: [address] Body Reading Room [id number] 06:59:00* Test Item Value Reference Range Comments MAGNESIUM (BEAKER) (test pkfj=740) 2.0 mg/dL 1.6-2.6 BASIC METABOLIC [id number] 06:59:00* Test Item Value Reference Range Comments SODIUM (BEAKER) (test sgvb=493) 133 meq/L 136-145 POTASSIUM (BEAKER) (test rabd=151) 4.9 meq/L 3.5-5.1 CHLORIDE (BEAKER) (test yvkm=729) 99 meq/L 98-107 CO2 (BEAKER) (test jzdm=763) 23 meq/L 22-29 BLOOD UREA NITROGEN (BEAKER) (test qdst=041) 31 mg/dL 7-21 CREATININE (BEAKER) (test invc=759) 1.64 mg/dL 0.57-1.25 GLUCOSE RANDOM (BEAKER) (test idfk=386) 83 mg/dL 70-105 CALCIUM (BEAKER) (test lbcw=928) 8.5 mg/dL 8.4-10.2 EGFR (BEAKER) (test sjcs=9245) 46 mL/min/1.73 sq m ESTIMATED GFR IS NOT ACCURATE CREATININE CLEARANCE IN PREDICTING GLOMERULAR FILTRATION RATE. ESTIMATED GFR IS NOT APPLICABLE FOR DIALYSIS PATIENTS. Specimen slightly ictericHEPATIC FUNCTION [id number] 06:59:00* Test Item Value Reference Range Comments TOTAL PROTEIN (BEAKER) (test kbma=965) 6.0 gm/dL 6.0-8.3 ALBUMIN (BEAKER) (test aihc=0715) 3.4 g/dL 3.5-5.0 BILIRUBIN TOTAL (BEAKER) (test vbro=583) 2.8 mg/dL 0.2-1.2 BILIRUBIN DIRECT (BEAKER) (test sdbc=693) 1.4 mg/dL 0.1-0.5 ALKALINE PHOSPHATASE (BEAKER) (test zefb=039) 94 U/L 40-150 AST (SGOT) (BEAKER) (test wkli=434) 102 U/L 5-34 ALT (SGPT) (BEAKER) (test gure=886) 288 U/L 6-55 Specimen slightly ictericCREATINE KINASE (CK), TOTAL AND [id number] 06:59:00* Test Item Value Reference Range Comments CREATINE KINASE TOTAL (BEAKER) (test wotu=731) 287 U/L 29-200 CREATINE KINASE-MB (BEAKER) (test eder=937) 9.5 ng/mL 0.0-6.6 CREATINE KINASE-MB INDEX (BEAKER) (test xrfp=119) 3.3 % CK-MB Reference Range:<6.7 Normal6.7-10.0 Borderline>10.0 Abnormal PROTHROMBIN TIME/[id number] 06:56:00* Test Item Value Reference Range Comments PROTIME (BEAKER) (test ioym=941) 20.1 seconds 11.7-14.7 INR (BEAKER) (test tttn=796) 1.7 <=5.9 RECOMMENDED COUMADIN/WARFARIN INR THERAPY RANGESSTANDARD DOSE: 2.0 - 3.0 Inclu candida: PROPHYLAXIS for venous thrombosis, systemic embolization; TREATMENT for anamika ous thrombosis and/or pulmonary embolus.HIGH RISK: Target INR is 2.5-3.5 for pat ients with mechanical heart valves.[id number] 06:56:00* Test Item Value Reference Range Comments PARTIAL THROMBOPLASTIN TIME (BEAKER) (test ibgj=517) 30.7 seconds 22.5-36.0 TROPONIN [id number] 06:47:00* Test Item Value Reference Range Comments TROPONIN I (BEAKER) (test cdtr=856) 0.03 ng/mL 0.00-0.03 Troponin I (TnI) levels must be interpreted in the context of the presenting sym ptoms and the clinical findings. Elevated TnI levels indicate myocardial damage, but are not specific for ischemic heart disease. Elevated TnI levels are seen in patients with other cardiac conditions (including myocarditis and congestive h eart failure), and slight TnI elevations occur in patients with other conditions , including sepsis, renal failure, acidosis, acute neurological disease, and per sistent tachyarrhythmia.B-TYPE NATRIURETIC FACTOR (BNP)2017-04-10 06:47:00* Test Item Value Reference Range Comments B-TYPE NATRIURETIC PEPTIDE (BEAKER) (test dudq=760) 2645 pg/mL 0-100 CBC W/PLT COUNT & AUTO [id number] 06:46:00* Test Item Value Reference Range Comments WHITE BLOOD CELL COUNT (BEAKER) (test obgz=102) 6.5 K/ L 3.5-10.5 RED BLOOD CELL COUNT (BEAKER) (test ctfu=249) 3.80 M/ L 4.63-6.08 HEMOGLOBIN (BEAKER) (test iozw=061) 12.0 GM/DL 13.7-17.5 HEMATOCRIT (BEAKER) (test oxkm=218) 38.2 % 40.1-51.0 MEAN CORPUSCULAR VOLUME (BEAKER) (test zapq=902) 100.5 fL 79.0-92.2 MEAN CORPUSCULAR HEMOGLOBIN (BEAKER) (test qilx=035) 31.6 pg 25.7-32.2 MEAN CORPUSCULAR HEMOGLOBIN CONC (BEAKER) (test iqrc=651) 31.4 GM/DL 32.3-36.5 RED CELL DISTRIBUTION WIDTH (BEAKER) (test cssc=827) 16.1 % 11.6-14.4 PLATELET COUNT (BEAKER) (test toma=853) 182 K/CU MM 150-450 MEAN PLATELET VOLUME (BEAKER) (test tdev=606) 11.0 fL 9.4-12.4 NUCLEATED RED BLOOD CELLS (BEAKER) (test cvwp=441) 0 /100 WBC 0-0 NEUTROPHILS RELATIVE PERCENT (BEAKER) (test renn=372) 67 % LYMPHOCYTES RELATIVE PERCENT (BEAKER) (test pyej=789) 21 % MONOCYTES RELATIVE PERCENT (BEAKER) (test ycyf=587) 11 % EOSINOPHILS RELATIVE PERCENT (BEAKER) (test axbw=124) 0 % BASOPHILS RELATIVE PERCENT (BEAKER) (test dqiw=603) 1 % NEUTROPHILS ABSOLUTE COUNT (BEAKER) (test cryn=616) 4.38 K/ L 1.78-5.38 LYMPHOCYTES ABSOLUTE COUNT (BEAKER) (test izph=706) 1.39 K/ L 1.32-3.57 MONOCYTES ABSOLUTE COUNT (BEAKER) (test dkzj=868) 0.69 K/ L 0.30-0.82 EOSINOPHILS ABSOLUTE COUNT (BEAKER) (test bcjz=123) 0.02 K/ L 0.04-0.54 BASOPHILS ABSOLUTE COUNT (BEAKER) (test ouia=796) 0.03 K/ L 0.01-0.08 IMMATURE GRANULOCYTES-RELATIVE PERCENT (BEAKER) (test gldh=9511) 0 % 0-1 CT ABDOMEN/PELVIS [facility] [address] [place] [address] Patient Name: HEIDY WHEELER MR #: [id number] : 1970 Age/Sex: 46/M Req #: [id number] Adm Physician: Ordered by: EJ TEIXEIRA MD Report #: [id number] Location: Room/Bed: Procedure: [id number] CT/CT ABDOMEN/PELVIS WO Ex am Date: 04/10/17 Exam Time: 0127 REPORT STATUS : Signed EXAM: CT Abdomen and Pelvis WITHOUT contrast INDICATION: Abdomin al distention COMPARISON: None. TECHNIQUE: Abdomen and pelvis were scanned u tilizing a multidetector helical scanner from the lung base to the pubic symph ysis without administration of IV contrast. Absence of intravenous contrast de creases sensitivity for detection of focal lesions and vascular pathology. Cor onal and sagittal reformations were obtained. Routine protocol was performed. IV CONTRAST: None. ORAL CONTRAST: Gastrografin RADIATION DOSE: Total DLP: 625.42 mGy*cm Estimated effe ctive dose: (DLP x 0.015 x size factor) mSv COMPLICATIONS: None FINDINGS: LINES and TUBES: None. LOWER THORAX: Moderate, global en largement of the heart also seated with minimal mosaic attenuation of the lung s HEPATOBILIARY: No focal hepatic lesions. No biliary ductal dilation. GALLBLADDER: No radio-opaque stones or sludge. The gallbladder is partia lly distended limiting the evaluation SPLEEN: No splenomegaly. PANC REAS: No focal masses or ductal dilatation. ADRENALS: No adrenal nodules KIDNEYS/URETERS: No hydronephrosis. No cystic or solid mass lesions. No stones. GI TRACT: No abnormal distention, wall thickening, or evidence of bowel obstruction. There are diverticula within the colon without evidence of diverticulitis. Appendix is not clearly identified. There is however no fat stranding or adenopathy in the right lower quadrant to suggest appendiciti s. PELVIC ORGANS/BLADDER: Unremarkable. LYMPH NODES: No lymphadenopath y. VESSELS: Unremarkable. PERITONEUM / RETROPERITONEUM: There is moder ate of amount of free fluid in the abdomen and pelvis. BONES: Unremarkabl e. SOFT TISSUES: There is mild diffuse anarsarca. IMPRESSI ON: 1. Peritoneal and retroperitoneal edema associated with small amount of ascites and mild anasarca is suggestive of congestive heart failure. 2. Min imal mosaic attenuation of the lungs suggestive of early pulmonary edema Si gned by: Dr. Iron Chau M.D. on 04/10/2017 2:17 AM Dictated By: IRON PULLIAM MD 0 217 Transcribed By: MEME on 04/10/17216 COPY TO: EJ TEIXEIRA MD CHEST 2 VIEWS [place] [address] Patient Name: HEIDY WHEELER MR #: [id number] : 1970 Age/Sex: 46/M Req #: [id number] Adm Physician: Ordered by: EJ TEIXEIRA MD Report #: [id number] Location: ER Room/Bed: Procedure: [id number] DX/CHEST 2 VIEWS Exam Date : 04/09/17 Exam Time: 5 REPORT STATUS: Estefanía d EXAMINATION: CHEST 2 VIEWS INDICATION: Shortness of jordan ath, CHF COMPARISON: 09/21/2016 FINDINGS: TUBES and LINES: No ne. LUNGS: Lungs are not well inflated. There are bibasilar atelectasis. There is mild prominence of the central pulmonary vasculature, consistent wi th pulmonary venous congestion. PLEURA: No pleural effusion or pneumotho rax. HEART AND MEDIASTINUM: Cardiac size is moderately enlarged. BONES AND SOFT TISSUES: No acute osseous lesion. Soft tissues are unremarkab le. UPPER ABDOMEN: No free air under the diaphragm. IMPRESSION: 1. No acute thoracic abnormality. 2. Moderate enlargement of the heart with out evidence of edema Signed by: Dr. Iron Chau M.D. on 04/10/2017 12:08 A M Dictated By: IRON JEREZ MD Transcribed By: MEME on 04/10/177 COPY TO: EJ TEIXEIRA MD
--- NOTE | 2018-09-05 19:00 | Diagnostic Imaging Report ---
EXAMINATION: CHEST SINGLE (PORTABLE) INDICATION: CHF. Chest pain x1 month. COMPARISON: CT abdomen and pelvis 04/10/2017. CT chest 04/09/2017. FINDINGS: AP view TUBES and LINES: None. LUNGS: Lungs are well inflated. Lungs are clear. There is no evidence of pneumonia or pulmonary edema. PLEURA: No pleural effusion or pneumothorax. HEART AND MEDIASTINUM: Cardiac size is moderately enlarged. The appearance is similar compared to 04/09/2017 and demonstrated dilated cardiomyopathy. BONES AND SOFT TISSUES: No acute osseous lesion. Soft tissues are unremarkable. UPPER ABDOMEN: No free air under the diaphragm. IMPRESSION: Moderate dilated cardiomyopathy. Lungs are otherwise unremarkable. Signed by: Dr. Salazar Armstrong M.D. on 09/05/2018 6:57 PM
[2018-09-05 19:07] LABS: BASOPHILS % 0.4 % (0.0-1.0); EOSINOPHILS % 0.3 % (0.0-6.0); HEMATOCRIT 35.3 % (38.2-49.6); HEMOGLOBIN 11.4 g/dL (14.0-18.0); LYMPHOCYTES # (AUTO) 1.8 (1.0-3.2); LYMPHOCYTES % 18.7 % (18.0-39.1); MEAN CORPUSCULAR HEMOGLOBIN 31.7 pg (28-32); MEAN CORPUSCULAR HGB CONC 32.3 g/dL (31-35); MEAN CORPUSCULAR VOLUME 98.1 fL (81-99); MONOCYTES # (AUTO) 1.6 (0.2-0.8); MONOCYTES % 16.9 % (4.4-11.3); NEUTROPHILS # (AUTO) 5.9 (2.1-6.9); NEUTROPHILS % 63.3 % (38.7-80.0); PLATELET COUNT 204 x10e3/uL (140-360); RED CELL DISTRIBUTION WIDTH 17.4 % (11.7-14.4)
[2018-09-05 19:29] LABS: INR 1.86; PARTIAL THROMBOPLASTIN TIME 28.8 seconds (23.8-35.5); PROTHROMBIN TIME 22.1 seconds (11.9-14.5)
[2018-09-05 19:32] LABS: ALBUMIN 3.4 g/dL (3.5-5.0); ALBUMIN/GLOBULIN RATIO 1.3 (0.8-2.0); ANION GAP 17.2 mmol/L (8-16); CALCIUM 8.4 mg/dL (8.4-10.2); CREATININE, SERUM 1.85 mg/dL (0.72-1.25); MAGNESIUM 2.3 MG/DL (1.3-2.1); POTASSIUM 3.2 mmol/L (3.5-5.1)
[2018-09-05 19:57] LABS: CREATINE KINASE MB 23.3 ng/mL (0-5.0)
[2018-09-05 21:04] LABS: BILIRUBIN,URINE NEGATIVE (NEGATIVE); CLARITY,URINE CLEAR (CLEAR); COLOR,URINE YELLOW (YELLOW); KETONES,URINE NEGATIVE (NEGATIVE); LEUKOCYTE ESTERASE ,URINE NEGATIVE (NEGATIVE); NITRITE,URINE NEGATIVE (NEGATIVE); PROTEIN,URINE DIPSTICK NEGATIVE (NEGATIVE); URINE UROBILINOGEN 0.2 mg/dL (0.2 - 1)
[2018-09-05 21:24] LABS: EPITHELIAL CELLS,URINE FEW /LPF
--- OUTSIDE RECORDS SUMMARY | 2018-09-05 22:14 | XMS REPORT | Clinical Summary ---
Author Author TRUNG [facility] Address Unknown Phone Unavailable Care Team Providers Care Sheet Sorter Name Role Phone Sharpless PCP Allergies No [...] Advance Directives For more information, please contact: [facility] [address] [place] [address] Date Inactivated Comments Code Status Date Activated 04/14/2017 12:58 PM Full Code 04/10/2017 4:47 AM This code status was determined by: Patient
--- OUTSIDE RECORDS SUMMARY | 2018-09-05 22:14 | XMS REPORT | Clinical Summary ---
Author Author [facility] Address Unknown Phone Unavailable Care Team Providers Care Field Agent Name Role Phone Asked, No Pcp PCP [...] more information, mihir pineda contact: Valdemar Lawson [address] [place] [phone]
[2018-09-05] MEDS ORDERED: ONDANSETRON HCL INJ 2MG/ML 2ML 2 MG/ML VIAL IV PRN (22:15)
[2018-09-05] MEDS ORDERED: SODIUM CHLORIDE FLUSH 10 ML SYR INJ PRN (22:15)
[2018-09-05 23:56] VITALS: BP 120/85
[2018-09-06] VITALS (7 sets, daily range): BP systolic 94–128; BP diastolic 71–89
--- NOTE | 2018-09-06 01:25 | NUR ---
DR. Clint CESAR MADE AWARE OF CONSULT
[2018-09-06 06:01] LABS: BASOPHILS % 0.4 % (0.0-1.0); EOSINOPHILS % 0.3 % (0.0-6.0); HEMATOCRIT 33.6 % (38.2-49.6); LYMPHOCYTES # (AUTO) 1.8 (1.0-3.2); LYMPHOCYTES % 23.7 % (18.0-39.1); MEAN CORPUSCULAR HGB CONC 32.7 g/dL (31-35); MEAN CORPUSCULAR VOLUME 97.7 fL (81-99); MONOCYTES # (AUTO) 1.5 (0.2-0.8); MONOCYTES % 19.7 % (4.4-11.3); NEUTROPHILS # (AUTO) 4.3 (2.1-6.9); NEUTROPHILS % 55.5 % (38.7-80.0); PLATELET COUNT 173 x10e3/uL (140-360); RED BLOOD COUNT 3.44 x10e6/uL (4.3-5.7); RED CELL DISTRIBUTION WIDTH 17.4 % (11.7-14.4)
[2018-09-06 06:30] LABS: ALBUMIN 2.9 g/dL (3.5-5.0); ALBUMIN/GLOBULIN RATIO 1.2 (0.8-2.0); ANION GAP 12.5 mmol/L (8-16); CALCIUM 8.1 mg/dL (8.4-10.2); CREATININE, SERUM 1.36 mg/dL (0.72-1.25); POTASSIUM 3.5 mmol/L (3.5-5.1)
--- NOTE | 2018-09-06 07:11 | NUR ---
pt asleep resp even and unlabored at this time , pt easily aroused to name, no c/o pain when asked, pt able to make need known, call light in reach.
[2018-09-06 08:11] LABS: LYMPHOCYTES % (MANUAL) 26 % (19-48); MONOCYTES % (MANUAL) 12 % (3.4-9.0); NEUTROPHILS % (MANUAL) 62 % (40-74)
[2018-09-06 08:12] LABS: PLATELET ESTIMATE ADEQUATE; PLATELET MORPHOLOGY COMMENT NORMAL; RBC MORPHOLOGY COMMENT NORMAL
--- NOTE | 2018-09-06 14:38 | Diagnostic Imaging Report ---
EXAM: US ABDOMEN COMPLETE DATE: 09/06/2018 12:00 AM INDICATION: Elevated liver enzymes COMPARISON: None TECHNIQUE: Transverse and longitudinal villa scale and color doppler sonographic images of the upper abdomen were obtained. FINDINGS: There is no evidence of fluid or masses seen in the area of clinical concern in the right lower quadrant. LIVER 17.5 cm in the right midclavicular line. Increased echogenicity of the liver with nodular contour, no masses. SPLEEN 11.9 cm in maximum diameter. Normal echogenicity, no masses. GALLBLADDER The gallbladder is decompressed. The gallbladder wall measures 5 mm. No stone, or pericholecystic fluid. Negative reported sonographic Wood's sign. BILE DUCTS No intra nor extra-hepatic biliary dilation. Common bile duct measures 0.4cm PANCREAS: Visualized portions are normal. RIGHT KIDNEY: 10.4 cm Echogenicity: Increased Collecting System: No hydronephrosis Stones: None Cyst/Mass: None LEFT KIDNEY: 10.4 cm Echogenicity: Normal Collecting System: No hydronephrosis Stones: None Cyst/Mass: None VESSELS: Aorta: Visualized portions are within normal size limits Inferior Vena Cava: Visualized portions are normal Main Portal Vein: 0.7 cm, normal size with hepatopetal flow. FREE FLUID: Trace right upper quadrant free fluid IMPRESSION: Hepatomegaly with hepatic steatosis and cirrhotic liver contour. Decompressed gallbladder with no sonographic evidence of cholecystitis. Increased right renal parenchymal echogenicity, can be seen with chronic kidney disease. Normal-appearing left kidney. Signed by: Trinidad Pickering MD on 09/06/2018 2:35 PM
[2018-09-06] MEDS: DOCUSATE SODIUM LIQD 100 MG/10 ML UDC NG SCH (16:21)
--- NOTE | 2018-09-06 19:06 | NUR ---
WALKING ROUNDS PERFORMED, RECEIVED PT LAYING SEMI FOWLERS IN BED, AAOX3, RR EVEN AND NON-LABORED, ON ROOM AIR. NO S/SX OF DISTRESS NOTED. LEFT PT LAYING SEMI FOWLERS IN BED, BED IN LOW LOCKED POSITION, SIDE RAILS UPX2, CALL LIGHT AND PHONE WITHIN REACH.
--- NOTE | 2018-09-06 19:10 | NUR ---
report given to oncoming nurse for continued care. pt stable.
--- NOTE | 2018-09-06 20:00 | History and Physical ---
HISTORY OF PRESENT ILLNESS: The patient is 48-year-old male with past medical history positive for alcohol and tobacco abuse, questionable history of coronary artery disease, came to the hospital complaining of palpitation, chest pain. Apparently, he ran out of his medications that he was taking before and the patient was found to have elevated LFTs and admitted to the hospital. REVIEW OF SYSTEMS: CARDIOVASCULAR: He had chest pain and palpitation. RESPIRATORY: Shortness of breath, but no cough. GASTROINTESTINAL: No nausea. No vomiting. No diarrhea. He does have constipation. GENITOURINARY: No frequency. No dysuria. ALLERGIES: NOT ALLERGIC TO ANYTHING. SOCIAL HISTORY: He used to drink heavily in the past, quit 5 years ago. He smokes cigarettes. PAST MEDICAL HISTORY: Positive according to the patient for CHF and coronary artery disease. PHYSICAL EXAMINATION: VITAL SIGNS: Blood pressure 109/61, temperature 97.7, heart rate 88 per minute, respiratory rate 18 per minute, oxygen saturation 92%. HEART: Showed regular rhythm. Normal S1 and S2 sound. LUNGS: Clear bilaterally. ABDOMEN: Soft. EXTREMITIES: Show no evidence of cyanosis or hematoma. LABORATORY STUDIES: On BMP; sodium 134, potassium 3.5, chloride 98, CO2 27, BUN 39, creatinine 1.36, glucose 86. On CBC; white count 7.75, hemoglobin 11.0, hematocrit 33.6, platelet count 173,000, PT 22.1, INR 1.86, PTT 20.8. AST 666, ALT 2200, total bilirubin 2.8, alkaline phosphatase 103. FINAL IMPRESSION: 1. Atypical chest pain. 2. Cirrhosis of the liver. 3. Constipation. 4. History of congestive heart failure. 5. Chronic renal insufficiency. PLAN OF TREATMENT: We are going to get echocardiogram and cardiology consult with Dr. Hannah and Gastroenterology consult with Dr. Brian Irving. Workup for cirrhosis has been ordered, which includes hepatitis profile, , iron, ferritin, ceruloplasmin, antimitochondrial antibodies. MD KATHY Gilliam/NITHIN /[id number]
[2018-09-06] MEDS: FUROSEMIDE INJ 10 MG/ML 4 ML VIAL IV SCH (20:21)
[2018-09-07] VITALS (8 sets, daily range): BP systolic 101–128; BP diastolic 70–88
--- NOTE | 2018-09-07 01:22 | Consultation ---
DATE OF CONSULTATION: 09/06/2018 Cardiology Consultation REQUESTING PHYSICIAN: Isaiah Shelley MD REASON FOR CONSULTATION: Congestive heart failure. HISTORY OF PRESENT ILLNESS: This is a 48-year-old man with chronic systolic heart failure and hypertension, who presents with complaints of shortness of breath and abdominal distention. The patient ran out of his cardiac medications a few months prior. Earlier this week, he developed shortness of breath and abdominal distention. He also reports edema and symptoms suggestive of orthopnea and PND. He denies any chest pain or palpitations. REVIEW OF SYSTEMS: Negative except as per HPI. PAST MEDICAL HISTORY: 1. Chronic systolic heart failure, EF 20, LVEF 20%. 2. Hypertension. PAST SURGICAL HISTORY: Denied. ALLERGIES: PLEASE SEE EMR. MEDICATIONS: Please see medication list. SOCIAL HISTORY: Prior tobacco. Denied alcohol or illicit drugs. FAMILY HISTORY: Noncontributory to current illness. PHYSICAL EXAMINATION: VITAL SIGNS: Temperature 97.7 degrees, pulse 104, respiratory rate 19, blood pressure 114/84, oxygen saturation 96%. GENERAL: A well-developed, well-nourished man, in no acute distress. HEENT: Normocephalic, atraumatic. Pupils equal. NECK: Supple. No thyromegaly or cervical lymphadenopathy. No carotid bruits. LUNGS: Clear to auscultation bilaterally. No wheeze or crackles. CARDIOVASCULAR: Tachycardic, but regular. Systolic murmur is present. Normal S1, S2. Positive S4. ABDOMEN: Soft, nontender. EXTREMITIES: No edema. NEUROLOGIC: Nonfocal exam. LABORATORY DATA: WBC 7.75, hemoglobin 11, hematocrit 33.6, platelets 173. Sodium 134, potassium 3.5, chloride 98. CO2 of 27. BUN 39, creatinine 1.36. AST 686, ALT 2200. BNP 3811. EKG; sinus tachycardia, possible left atrial enlargement left anterior fascicular block. IMPRESSION: 1. Smdxj-wl-epufxkd systolic heart failure. 2. Elevated LFTs. 3. Hypertension. RECOMMENDATIONS: Start the patient on diuretics. If blood pressure permits, we will start low-dose beta-agus and FAWAD inhibitor. Repeat echocardiogram. Elevated LFTs, may be secondary to congestive hepatopathy, given his kuulo-jv-yirquwz systolic heart failure. Monitor LFTs with diuresis. Monitor the patient on telemetry while admitted. The patient will need ICD. It appears he was offered during his previous admission, but the patient refused at that time. We will continue to discuss with the patient. Thank you for this consult. We will continue to follow. Genesis De La Garza MD ABS/MODL /[id number]
[2018-09-07] MEDS: FUROSEMIDE INJ 10 MG/ML 4 ML VIAL IV SCH ×3 (03:30→16:54)
[2018-09-07 07:03] LABS: CHOL/HDL RATIO 4.5 (3.9-4.7)
--- NOTE | 2018-09-07 07:12 | NUR ---
BEDSIDE SHIFT REPORT PERFORMED WITH ONCOMING NURSE.
--- NOTE | 2018-09-07 07:14 | NUR ---
pt awake in bed resp even and unlabored this time pt able to make needs known, no pt has no c/o pain when asked, call light in reach.
[2018-09-07 07:34] LABS: ALANINE AMINOTRANSFERASE 1752 IU/L (0-55); ALBUMIN/GLOBULIN RATIO 1.2 (0.8-2.0); ALKALINE PHOSPHATASE 101 IU/L (40-150); ANION GAP 15.7 mmol/L (8-16); BLOOD UREA NITROGEN 27 mg/dL (7-26); BUN/CREATININE RATIO 24 (6-25); CALCIUM 8.3 mg/dL (8.4-10.2); CARBON DIOXIDE 29 mmol/L (22-29); CHLORIDE 97 mmol/L (98-107); CREATININE, SERUM 1.11 mg/dL (0.72-1.25); EST GLOMERULAR FILTRATION RATE > 60 ML/MIN (60-); GLUCOSE 70 mg/dL (74-118); SODIUM 139 mmol/L (136-145)
[2018-09-07 07:39] LABS: POTASSIUM 2.7 mmol/L (3.5-5.1)
[2018-09-07] MEDS ORDERED: POTASSIUM CHLORIDE 20 MEQ TAB CR PO STA ×2 (07:41→07:46)
--- NOTE | 2018-09-07 07:44 | NUR ---
call to Dr Shelley for orders pt K+ 2.7 orders given. 40 meq, po, labs to be drawn at 1500.
[2018-09-07] MEDS: DOCUSATE SODIUM LIQD 100 MG/10 ML UDC NG SCH ×2 (09:46→16:54)
--- NOTE | 2018-09-07 14:01 | Progress Note ---
DATE: 09/07/2018 Cardiology Progress Note SUBJECTIVE: The patient denies chest pain or shortness of breath. OBJECTIVE: VITAL SIGNS: Temperature 96.4 degrees, pulse 85, respiratory rate 19, blood pressure 102/74, and oxygen saturation 94% on room air. GENERAL: Awake, alert, in no acute distress. LUNGS: Clear to auscultation bilaterally. No wheezes or crackles. CARDIOVASCULAR: Normal rate. Regular rhythm. Systolic murmur. Positive S4. ABDOMEN: Soft and nontender. EXTREMITIES: No edema. NEURO: Nonfocal exam. LABORATORY DATA: Sodium 139, potassium 2.7, chloride 97, CO2 29, BUN 27, and creatinine 1.11. AST 405 and ALT 1752. Cholesterol 76, LDL 49, HDL 17, and triglycerides 49. IMPRESSION: 1. Zthsq-cf-yptlmki systolic heart failure. 2. Elevated LFT, suspect congestive hepatopathy. 3. Hypertension, currently controlled without antihypertensive therapy. 4. Noncompliance with medical therapy. RECOMMENDATIONS: Continue diuresis. Monitor blood pressure closely. If blood pressure permits, start low-dose beta-agus and FAWAD inhibitor. Repeat echocardiogram has been ordered. These are pending. Suspect elevated LFTs may be secondary to congestive hepatopathy given kjpts-yo-tlzkvrt systolic heart failure, as these are improving with diuresis. Further evaluation of LFTs per GI. Monitor the patient on telemetry while admitted. If EF remains low, the patient will need ICD. It appears he was offered this during his previous admission, but refused at that time. We will discuss with the patient further. Thank you for this consult. We will continue to follow. Genesis De La Garza MD ABS/MODL /[id number]
[2018-09-07 16:18] LABS: BASOPHILS % 0.3 % (0.0-1.0); EOSINOPHILS # (AUTO) 0.1 (0.0-0.4); EOSINOPHILS % 0.9 % (0.0-6.0); HEMATOCRIT 35.5 % (38.2-49.6); HEMOGLOBIN 11.4 g/dL (14.0-18.0); LYMPHOCYTES # (AUTO) 1.4 (1.0-3.2); LYMPHOCYTES % 20.1 % (18.0-39.1); MEAN CORPUSCULAR HEMOGLOBIN 31.9 pg (28-32); MEAN CORPUSCULAR HGB CONC 32.1 g/dL (31-35); MEAN CORPUSCULAR VOLUME 99.4 fL (81-99); MONOCYTES % 14.2 % (4.4-11.3); NEUTROPHILS # (AUTO) 4.3 (2.1-6.9); NEUTROPHILS % 64.2 % (38.7-80.0); PLATELET COUNT 190 x10e3/uL (140-360); RED BLOOD COUNT 3.57 x10e6/uL (4.3-5.7); RED CELL DISTRIBUTION WIDTH 17.5 % (11.7-14.4)
[2018-09-07] MEDS: LACTULOSE SYRUP 20 GM/30 ML UDC PO SCH (16:54)
--- NOTE | 2018-09-07 17:38 | Progress Note ---
DATE: Internal Medicine Progress Note SUBJECTIVE: The patient is complaining of constipation. He was started on Colace. We started lactulose twice a day, due to the ammonia level being very high. PHYSICAL EXAMINATION: VITAL SIGNS: Blood pressure is 118/83, temperature 95.9, heart rate 108 per minute, respiratory rate 19 per minute, O2 saturation 95%. HEART: Showed regular rhythm. Normal S1, S2 sound. LUNGS: Clear are bilaterally. ABDOMEN: Soft. EXTREMITIES: Show no evidence of cyanosis or hematoma. LABORATORY DATA: On the BMP; sodium 139, potassium 2.7, chloride 97, CO2 of 29, BUN 27, creatinine 1.11, glucose 79. CBC; white count 7.75, hemoglobin 11.0, hematocrit 33.6, platelet count 173,000, PT 22.1, INR 1.86, PTT 28.8. AST 405, ALT 1752, total bilirubin 2.6, alkaline phosphatase 101. FINAL DIAGNOSES: 1. He has cirrhosis of the liver. 2. Constipation. 3. Chronic renal failure stage 3. 4. History of congestive heart failure, which is diastolic and chronic. 5. Coagulopathy secondary to liver disease. 6. Hepatic encephalopathy. PLAN OF TREATMENT: Continue with Lasix 40 mg IV q.8 hours. We are going to add lactulose 20 g twice a day. We are going to start him on Aldactone 25 mg once a day due to the cirrhosis of the liver. We are going to recheck BMP tomorrow. The patient has been seen also by Dr. Brian Irving, Gastroenterology and Dr. Esqueda for Cardiology. MD KATHY Gilliam/NITHIN /[id number]
--- NOTE | 2018-09-07 18:53 | Progress Note ---
DATE: Hepatitis profile is negative. Rest of the workup is pending. The patient has a history of alcohol abuse. MD KATHY Gilliam/NITHIN /[id number]
--- NOTE | 2018-09-07 19:12 | NUR ---
WALKING ROUNDS PERFORMED, RECEIVED PT LAYING SEMI FOWLERS IN RECLINER AAOX3, RR EVEN AND NON-LABORED, ON ROOM AIR. NO S/SX OF DISTRESS NOTED. LEFT PT LAYING IN RECLINER. CALL LIGHT AND PHONE WITHIN REACH.
--- NOTE | 2018-09-07 19:21 | NUR ---
report given to oncoming nurse, for continued care.
[2018-09-08] VITALS (7 sets, daily range): BP systolic 108–126; BP diastolic 71–90
[2018-09-08] MEDS: FUROSEMIDE INJ 10 MG/ML 4 ML VIAL IV SCH ×3 (02:30→17:19)
--- NOTE | 2018-09-08 07:00 | NUR ---
received am report from RN, morning rounds done. Pt is resting comfortably, no s/s of distress. call light within reach, side rails up.
[2018-09-08 07:43] LABS: ALANINE AMINOTRANSFERASE 1345 IU/L (0-55); ALBUMIN/GLOBULIN RATIO 1.1 (0.8-2.0); ALKALINE PHOSPHATASE 97 IU/L (40-150); ANION GAP 12.4 mmol/L (8-16); BLOOD UREA NITROGEN 22 mg/dL (7-26); BUN/CREATININE RATIO 22 (6-25); CALCIUM 8.5 mg/dL (8.4-10.2); CARBON DIOXIDE 28 mmol/L (22-29); CHLORIDE 95 mmol/L (98-107); CREATININE, SERUM 1.02 mg/dL (0.72-1.25); EST GLOMERULAR FILTRATION RATE > 60 ML/MIN (60-); GLUCOSE 94 mg/dL (74-118); POTASSIUM 3.4 mmol/L (3.5-5.1); SODIUM 132 mmol/L (136-145)
[2018-09-08] MEDS: SPIRONOLACTONE 25 MG TAB PO SCH (09:41)
[2018-09-08] MEDS: POTASSIUM CHLORIDE 20 MEQ TAB CR PO SCH (09:41)
[2018-09-08] MEDS: DOCUSATE SODIUM LIQD 100 MG/10 ML UDC NG SCH ×2 (09:41→17:19)
[2018-09-08] MEDS: LACTULOSE SYRUP 20 GM/30 ML UDC PO SCH ×2 (09:41→17:19)
--- NOTE | 2018-09-08 11:17 | NUR ---
CM SPOKE TO DR. ALVAREZ REGARDING PATIENT PLAN OF CARE AND DISCHARGE PLAN. PATIENT 48 YRS OLD AND AMBULATING WITH NO AD OR ASSISTANCE. AT THIS TIME PATIENT AST DECREASING BUT STILL SLIGHTLY ELEVATED. DISCHARGE WAS HELD LAST NIGHT DUE K+ 2.7, AST 405, ALT 1752. TODAY K+ 3.4, AST 264, ALT 1345. BEDSIDE RN HAS PAGED DR. ALVAREZ FOR ANTICIPATED DC DATE. PATIENT AT THIS TIME WILL BE DISCHARGING HOME WITH NO NEEDS.
[2018-09-08] MEDS ORDERED: ONDANSETRON HCL 4 MG ORAL DISINTEGRATING TAB PO PRN (11:30)
[2018-09-08] MEDS ORDERED: POTASSIUM CHLORIDE 20 MEQ TAB CR PO ONE (15:45)
--- NOTE | 2018-09-08 19:10 | NUR ---
Report received at this time. Pt in no apparent distress. Call light is in reach.
--- NOTE | 2018-09-08 20:41 | Progress Note ---
DATE: 09/08/2018 Cardiology Progress Note SUBJECTIVE: The patient denies chest pain. He reports his shortness of breath has improved. OBJECTIVE: VITAL SIGNS: Temperature 96.3 degrees, pulse 106, respiratory rate 20, blood pressure 110/82, and oxygen saturation 96% on room air. GENERAL: Awake, alert, in no acute distress. LUNGS: Clear to auscultation bilaterally. No wheezes or crackles. CARDIOVASCULAR: Normal rate, regular rhythm. Systolic murmur. Positive S4. ABDOMEN: Soft, nontender. EXTREMITIES: No edema. NEURO: Nonfocal exam. CARDIAC MEDICATIONS: Lasix 40 mg IV q.8 hours, Aldactone 25 mg p.o. daily. LABORATORY DATA: Sodium 132, potassium 3.4, chloride 95, CO2 of 28, BUN 22, creatinine 1.02. IMPRESSION: 1. Xftlg-ie-sixqixb systolic heart failure. 2. Elevated LFT, suspect congestive hepatopathy. 3. Hypertension. 4. Noncompliance with medical therapy. RECOMMENDATIONS: Continue diuresis. Monitor blood pressure closely. We will attempt to start low-dose beta-blockade in morning. Repeat echocardiogram revealed severe systolic heart failure. I discussed indication for ICD. The patient will need to be on optimal medical therapy for three months prior to ICD being placed. Attempt to arrange LifeVest on discharge instead. Suspect elevated LFTs may be secondary to congestive hepatopathy given acute on chronic systolic heart failure. Further evaluation per GI. Monitor the patient on telemetry while admitted. Thank you for this consult. We will continue to follow. Genesis De La Garza MD ABS/MODL /[id number]
[2018-09-09] VITALS (7 sets, daily range): BP systolic 97–119; BP diastolic 75–84
[2018-09-09] MEDS: FUROSEMIDE INJ 10 MG/ML 4 ML VIAL IV SCH ×2 (01:51→10:29)
--- NOTE | 2018-09-09 05:48 | Discharge Summary ---
HOSPITAL COURSE: The patient is a 48 years old male who had a past medical history positive for hypertension, atrial fibrillation, CHF, admitted with shortness of breath. He was found to have increased liver enzymes. While evaluation in process, he was found to have cirrhosis of the liver, so far the hepatitis profile is negative. Ammonia level was very high, we started lactulose. The ammonia level is lower now. He had shortness of breath, but there was no evidence of any congestive heart failure. The patient is doing better. He is going home tomorrow as long as the ammonia level is less than 80. PHYSICAL EXAMINATION: VITAL SIGNS: Blood pressure 120/71, temperature 96.2, heart rate 112 per minute, respiratory rate 20 per minute, and oxygen saturation 97%. HEART: Regular rhythm. Normal S1, S2 sound. LUNGS: Clear bilaterally. ABDOMEN: Soft. IMPRESSION: 1. Episode of chest pain with negative cardiac enzymes and ejection fraction of 22 and 25%. EKG shows sinus tachycardia, left atrial enlargement, left anterior fascicular block, but no evidence of any ST-segment elevation or depression. 2. Cirrhosis of the liver, most likely secondary to his prior alcohol abuse. 3. Constipation. 4. Chronic renal failure stage 3. 5. History of chronic systolic and diastolic congestive heart failure. 6. Coagulopathy. 7. Hepatic encephalopathy. PLAN OF TREATMENT: The patient is refusing furosemide. He want to take Bumex, so we are going to start him on Bumex 2 mg daily, aldactone 25 mg daily, lactulose 20 g twice a day, potassium chloride is going to be 40 mEq daily because the patient has recurrent episode of hypokalemia. The patient will be seen by his primary care physician as an outpatient. Discharge tomorrow if okay with consultants. MD KATHY Gilliam/NITHIN /[id number]
--- NOTE | 2018-09-09 07:05 | NUR ---
Report given to DENISSE Bocanegra at this time. Addendum: 09/09/18 at 0707 by Patricia Bourne RN Report given to DENISSE Mejia at this time.
--- NOTE | 2018-09-09 07:47 | NUR ---
RECEIVED PATIENT AWAKE RESTING IN BED NO SIGNS OF DISTRESS. BED LOW, WHEELS LOCKED, SIDE RAILS X2. CALL LIGHT IN REACH WILL CONTINUE TO MONITOR PATIENT.
[2018-09-09] MEDS: LACTULOSE SYRUP 20 GM/30 ML UDC PO SCH ×2 (08:11→16:24)
[2018-09-09] MEDS: POTASSIUM CHLORIDE 20 MEQ TAB CR PO SCH (08:11)
[2018-09-09] MEDS: DOCUSATE SODIUM LIQD 100 MG/10 ML UDC NG SCH ×2 (08:11→16:24)
[2018-09-09] MEDS: SPIRONOLACTONE 25 MG TAB PO SCH (08:11)
[2018-09-09 08:57] LABS: ALANINE AMINOTRANSFERASE 1048 IU/L (0-55); ALBUMIN 3.1 g/dL (3.5-5.0); ALKALINE PHOSPHATASE 99 IU/L (40-150); ANION GAP 13.4 mmol/L (8-16); BLOOD UREA NITROGEN 20 mg/dL (7-26); BUN/CREATININE RATIO 16 (6-25); CALCIUM 8.8 mg/dL (8.4-10.2); CARBON DIOXIDE 31 mmol/L (22-29); CHLORIDE 96 mmol/L (98-107); CREATININE, SERUM 1.28 mg/dL (0.72-1.25); EST GLOMERULAR FILTRATION RATE > 60 ML/MIN (60-); GLUCOSE 121 mg/dL (74-118); POTASSIUM 4.4 mmol/L (3.5-5.1); SODIUM 136 mmol/L (136-145)
[2018-09-09] MEDS ORDERED: METOPROLOL TARTRATE 25 MG TAB PO SCH (09:00)
[2018-09-09] MEDS ORDERED: BUMETANIDE1 MG PO (10:39)
[2018-09-09] MEDS ORDERED: SPIRONOLACTONE25 MG PO (10:40)
[2018-09-09] MEDS ORDERED: KRISTALOSE10 GM PO (10:53)
[2018-09-09] MEDS ORDERED: METOPROLOL SUCC25 MG PO (17:20)
--- NOTE | 2018-09-09 17:28 | NUR ---
REMOVED PATIENTS IV. CATHETER TIP INTACT AND PRESSURE DRESSING APPLIED.
--- NOTE | 2018-09-09 17:32 | NUR ---
PATIENT DISCHARGED FROM FACILITY. PATIENT GATHERED ALL PERSONAL BELONGINGS, DISCHARGE INSTRUCTIONS, AND FOLLOW UP INFORMATION. WENT HOME VIA PRIVATE AUTO. NO SIGNS OF DISTRESS WHEN LEAVING FACILITY.
--- NOTE | 2018-09-09 17:49 | Progress Note ---
DATE: 09/09/2018 Cardiology Progress Note SUBJECTIVE: The patient denies chest pain or shortness of breath. OBJECTIVE: VITAL SIGNS: Temperature 96.1 degrees, pulse 119, respiratory rate 18, blood pressure 113/81, and oxygen saturation 98% on room air. GENERAL: Awake, alert, in no acute distress. LUNGS: Clear to auscultation bilaterally. No wheezes or crackles. CARDIOVASCULAR: Normal rate, regular rhythm. Systolic murmur. Positive S4. ABDOMEN: Soft, nontender. EXTREMITIES: No edema. NEUROLOGIC: Nonfocal exam. CARDIAC MEDICATIONS: Furosemide 40 mg IV q.8 h., metoprolol tartrate 12.5 mg p.o. b.i.d., spironolactone 25 mg p.o. daily. LABORATORY DATA: Sodium 136, potassium 4.4, chloride 96, CO2 of 31, BUN 20, creatinine 1.28. IMPRESSION: 1. Iipou-ma-mzpmudf systolic heart failure. 2. Elevated LFTs, suspect congestive hepatopathy. 3. Hypertension. 4. Noncompliance with medical therapy. RECOMMENDATIONS: Continue the diuresis. Monitor creatinine closely. The patient's blood pressure has been stable with starting low-dose beta-blockade. The patient needs to be discharged on metoprolol succinate given his severe systolic heart failure. Start FAWAD once renal function is stable. Echocardiogram reveals severe systolic heart failure, however, he has not been compliant with medical therapy. He will need to be on optimal medical therapy for 3 months prior to ICD implantation. We have ordered LifeVest for discharge. Suspect elevated LFTs secondary to congestive hepatopathy, given his qbnet-[id number] systolic heart failure. Further evaluation per GI. Monitor the patient on telemetry while admitted. Thank you for this consult. We will continue to follow. Genesis De La Garza MD ABS/MODL /[id number] MTDD
[2018-09-10] MEDS ORDERED: METOPROLOL SUCCINATE 25 MG TAB XL PO SCH (09:00)
== END 2018-09-09 17:32 | disposition home or self-care (01) | DRG 291 ==
LOC: ER 17:38 → ERHOLD 22:11 → MED/SURG 22:59
PROVIDERS: ADMIT Internal Medicine; ATTEND Internal Medicine
DX: I13.0 Hypertensive heart and chronic kidney disease with heart failure and stage 1 through stage 4 chronic kidney disease, or unspecified chronic kidney disease (principal); I50.23 Acute on chronic systolic (congestive) heart failure; E87.6 Hypokalemia; R79.89 Other specified abnormal findings of blood chemistry; N18.3 Chronic kidney disease, stage 3 (moderate); I48.91 Unspecified atrial fibrillation; R07.89 Other chest pain; Z72.0 Tobacco use; K59.00 Constipation, unspecified; K76.0 Fatty (change of) liver, not elsewhere classified; R16.0 Hepatomegaly, not elsewhere classified; K70.30 Alcoholic cirrhosis of liver without ascites; F10.21 Alcohol dependence, in remission; K72.90 Hepatic failure, unspecified without coma; Z91.128 Patient's intentional underdosing of medication regimen for other reason; Z91.19 Patient's noncompliance with other medical treatment and regimen
CPT/HCPCS: 36415; 71045; 76700; 80053; 80061; 81001; 82140; 82550; 82553; 83735; 83880; 84484; 85025; 85610; 85730; 93005; 93306; 99284; J1940

== ENCOUNTER 2018-09-15 17:58 | Inpatient (IN) | payer OTHER ==
[~2018-09-15] VITALS: Ht 185.4 cm; Wt 78.3 kg
[~2018-09-15 17:58] MED LIST changes: +BUMETANIDE1 MG PO; +KRISTALOSE10 GM PO; +METOPROLOL SUCC25 MG PO
--- OUTSIDE RECORDS SUMMARY | 2018-09-15 18:01 | XMS REPORT | Clinical Summary ---
Author Author Creative Brain Studiosist Organization [facility] Address Unknown Phone Unavailable Care Team Providers Care Television Receiver Analyzer Name Role Phone Asked, No Pcp PCP [...] INFLUENZA VACCINE 09/28/2018 Results Not on fileafter 09/14/2017 Insurance Type Payer Benefit Subscriber ID Effective Phone Address Plan / Dates Group Medicaid MEDICAID MEDICAID xxxxxxxxx 2015-P resent Medicaid PENDING MEDICAID PENDING xxxxxxxxx 2016-P [address] BOX DISABILITY resent [id number] MEDICAID [place], [place] COVERAGE [address] Advance Directives Patient has advance care planning documents on file. For more information, mihir pineda contact: [facility] [address] [place] [id number]
--- OUTSIDE RECORDS SUMMARY | 2018-09-15 18:01 | XMS REPORT | Clinical Summary ---
Author Author TRUNG [facility] Address Unknown Phone Unavailable Care Team Providers Care Water Quality Manager Name Role Phone Sharpless PCP Allergies No [...] Not on file Results Not on fileafter 09/14/2017 Advance Directives For more information, please contact: [facility] [address] [place] [address] Date Inactivated Comments Code Status Date Activated 04/14/2017 12:58 PM Full Code 04/10/2017 4:47 AM This code status was determined by: Patient
--- NOTE | 2018-09-15 18:45 | NUR ---
PATIENT TRANSPORTED TO ER ROOM, DISROBED AND GOWNED. CONNECTED TO BEDSIDE MONITOR, NIBP AND SPO2. PATIENT UNCOOPERATIVE, BIZARRE BEHAVIOR, YELLING AT STAFF. REDIRECTED AND POSITIVE REINFORCEMENT GIVEN. EDUCATED PATIENT ON THE CURRENT URBAN OF CARE,VERBALIZED UNDERSTANDING. FAMILY AT BEDSIDE.
[2018-09-15] MEDS ORDERED: SODIUM CHLORIDE 0.9% 1000ML 1,000 ML IV STA ×2 (18:54→20:23)
[2018-09-15] MEDS ORDERED: DICYCLOMINE HCL 20 MG/2 ML VIAL IM ONE (19:00)
[2018-09-15] MEDS ORDERED: ONDANSETRON HCL INJ 2MG/ML 2ML 2 MG/ML VIAL IV NR ×2 (19:00→20:30)
[2018-09-15] MEDS ORDERED: SODIUM CHLORIDE 0.9% 1000ML 1,000 ML IV ONE (19:00)
[2018-09-15] MEDS ORDERED: ORPHENADRINE CITRATE 30 MG/ML VIAL IM ONE (19:15)
[2018-09-15] MEDS ORDERED: MORPHINE SULFATE INJ 4 MG/ML INJ 1ML IV NR ×2 (19:15→20:30)
[2018-09-15 19:30] LABS: BASOPHILS # (AUTO) 0.1 (0.0-0.1); BASOPHILS % 0.4 % (0.0-1.0); EOSINOPHILS % 0.2 % (0.0-6.0); HEMATOCRIT 40.3 % (38.2-49.6); HEMOGLOBIN 12.9 g/dL (14.0-18.0); LYMPHOCYTES # (AUTO) 3.4 (1.0-3.2); LYMPHOCYTES % 24.6 % (18.0-39.1); MEAN CORPUSCULAR HEMOGLOBIN 31.5 pg (28-32); MEAN CORPUSCULAR VOLUME 98.5 fL (81-99); MONOCYTES # (AUTO) 1.8 (0.2-0.8); MONOCYTES % 13.4 % (4.4-11.3); NEUTROPHILS # (AUTO) 8.3 (2.1-6.9); PLATELET COUNT 278 x10e3/uL (140-360); RED BLOOD COUNT 4.09 x10e6/uL (4.3-5.7); RED CELL DISTRIBUTION WIDTH 17.5 % (11.7-14.4)
[2018-09-15 19:46] LABS: ALBUMIN/GLOBULIN RATIO 1.3 (0.8-2.0); ANION GAP 26.4 mmol/L (8-16); CALCIUM 9.9 mg/dL (8.4-10.2); CREATININE, SERUM 3.69 mg/dL (0.72-1.25)
[2018-09-15 19:52] LABS: CREATINE KINASE MB 23.4 ng/mL (0-5.0)
[2018-09-15 20:02] LABS: POTASSIUM 5.4 mmol/L (3.5-5.1)
[2018-09-15 20:09] LABS: INR 1.49; PARTIAL THROMBOPLASTIN TIME 29.7 seconds (23.8-35.5); PROTHROMBIN TIME 18.6 seconds (11.9-14.5)
[2018-09-15] MEDS ORDERED: DIATRIZOATE MEGL/DIATRIZOA SOD 30 ML BTL PO ONE (20:15)
[2018-09-15] MEDS ORDERED: SODIUM CHLORIDE FLUSH 10 ML SYR INJ PRN (20:45)
[2018-09-15] MEDS ORDERED: SODIUM BICARBONATE 8.4% 75 ML in SODIUM CHLORIDE 0.45% 1,000 ML IV ONE (20:45)
--- NOTE | 2018-09-15 21:07 | Diagnostic Imaging Report ---
RIGHT UPPER QUADRANT ULTRASOUND TECHNIQUE: Ultrasound evaluation of the right upper quadrant abdomen. Color Doppler evaluation was utilized to supplement the evaluation. HISTORY: Right upper quadrant pain COMPARISON: Abdominal ultrasound September 06, 2018. CT of the abdomen and pelvis April 10, 2017. DISCUSSION: Per the technologist performing the exam, the exam is limited secondary to the patient's ability to breath-hold, remain still, and optimally position for the exam. The exam protocol cannot be entirely completed. LIVER: Diffusely increased echogenicity. BILIARY: Sludge versus artifact, no echogenic stone is identified. The sonographic Wood's sign could not be adequately assessed. Common bile duct measures 0.3 cm. RIGHT KIDNEY: The right kidney cannot be visualized given the stated limitations. PANCREAS: The right kidney cannot be visualized given the stated limitations. PERITONEUM: No free fluid identified. VASCULATURE: Limited evaluation of the aorta and IVC, but they appear unremarkable. The portal vein is patent with hepatopedal flow. IMPRESSION: 1. No significant interval change identified in comparison to the abdominal ultrasound September 06, 2018, within the stated limitations of this exam. 2. Findings remain compatible with hepatic steatosis. Signed by: Dr. Hunter Burkett D.O., M.M.M. on 09/15/2018 9:03 PM
--- OUTSIDE RECORDS SUMMARY | 2018-09-15 21:07 | XMS REPORT | Clinical Summary ---
Author Author Intelligent Mobile Supportist Organization [facility] Address Unknown Phone Unavailable Care Team Providers Care Machinist Class B Name Role Phone Asked, No Pcp PCP [...] xxxxxxxxx 2016-P [address] BOX DISABILITY resent [id number] MEDICAID [place], [place] C[place] [phone] Advance Directives Patient has advance care planning documents on file. For more information, mihir pineda contact: [facility] [address] [place] [phone]
--- OUTSIDE RECORDS SUMMARY | 2018-09-15 21:07 | XMS REPORT | Clinical Summary ---
Author Author TRUNG [facility] [place] Address Unknown Phone Unavailable Care Team Providers Care Pipe Tester Name Role Phone Sharpless PCP Allergies No [...] Advance Directives For more information, please contact: [facility] [address] [place] [address] Date Inactivated Comments Code Status Date Activated 04/14/2017 12:58 PM Full Code 04/10/2017 4:47 AM This code status was determined by: Patient
[2018-09-15] MEDS: MORPHINE SULFATE INJ 4 MG/ML INJ 1ML IV PRN (21:18)
--- NOTE | 2018-09-15 22:17 | Diagnostic Imaging Report ---
EXAM: CT of the abdomen and pelvis WITHOUT contrast HISTORY: Abdominal pain, distention, right upper quadrant pain, nausea and vomiting, oral contrast, history of CHF COMPARISON: CT of the abdomen pelvis April 10, 2017 TECHNIQUE: The abdomen and pelvis were scanned utilizing a multidetector helical scanner. Coronal and sagittal reformats are available. PROTOCOL: Routine IV CONTRAST: None, which limits sensitivity and specificity of evaluation of the soft tissues and vascular structures. ORAL CONTRAST: Dilute Gastrografin. RADIATION DOSE: Total DLP: 447.36 mGy*cm Estimated effective dose: (DLP x 0.015 x size factor) Dose modulation, iterative reconstruction, and/or weight based adjustment of the mA/kV was utilized to reduce the radiation dose to as low as reasonably achievable. COMPLICATIONS: None FINDINGS: Beam hardening artifact from the overlying upper extremities partially limits the exam, per the technologist performing the exam the patient was unable to raise arms above the region of the examination. LINES and TUBES: None. LOWER THORAX: Severe global enlargement of the heart. HEPATOBILIARY: No focal hepatic lesions. No biliary ductal dilation. GALLBLADDER: No radio-opaque stones or sludge. SPLEEN: No splenomegaly. PANCREAS: No focal masses or ductal dilatation. ADRENALS: No adrenal nodules KIDNEYS/URETERS: No hydronephrosis. No cystic or solid mass lesions. No stones. GI TRACT: Radiopaque contrast partially opacifies the predominantly decompressed stomach. A small amount of radiopaque contrast within the small bowel. Mild scattered diverticula within the colon without evidence of diverticulitis. The visualized portions of the appendix appears normal. PELVIC ORGANS/BLADDER: The urinary bladder is predominantly decompressed, with limits evaluation, but no abnormality identified within this limitation. LYMPH NODES: No lymphadenopathy. VESSELS: Unremarkable. PERITONEUM / RETROPERITONEUM: Small amount of free fluid within the pelvis, markedly decreased versus the comparison. BONES: Unremarkable. SOFT TISSUES: Unremarkable. IMPRESSION: 1. Severe cardiomegaly 2. Interval decreased ascites, now small volume within the pelvis. Signed by: Dr. Hunter Burkett D.O., M.M.M. on 09/15/2018 10:03 PM
--- NOTE | 2018-09-15 23:44 | NUR ---
PATIENT STATES HE CANNOT URINATE X3
[2018-09-16] VITALS (18 sets, daily range): BP systolic 90–152; BP diastolic 61–127
--- NOTE | 2018-09-16 02:00 | NUR ---
received patient very restless, having a sinus tachycardia, settled in bed, on normal saline at 125mls, vitals stable, started on 2l oxygen, saturating at 98%
[2018-09-16] MEDS: MORPHINE SULFATE INJ 4 MG/ML INJ 1ML IV PRN ×3 (02:40→20:05)
[2018-09-16] MEDS ORDERED: DEXTROSE 50% SYRINGE 50 ML IV ONE ×2 (02:43→03:03)
--- NOTE | 2018-09-16 02:45 | NUR ---
patient very restless and complaining of generalized pain, given morphine for pain, blood sugars done, low, dextrose 50%, 50 mls, repeat after 15 mins , 21, 50% dextrose given, doctor galaviz informed, fluids changed to d5% at 125mls/hr
[2018-09-16] MEDS ORDERED: DEXTROSE 5% 1,000 ML IV SCH (03:15)
[2018-09-16] MEDS ORDERED: DEXTROSE 5% 1,000 ML IV ONE (03:16)
--- NOTE | 2018-09-16 05:00 | NUR ---
repeat blood sugars 142, patient calm and oriented, resting in bed.
[2018-09-16 06:04] LABS: ALBUMIN 3.6 g/dL (3.5-5.0); ALBUMIN/GLOBULIN RATIO 1.3 (0.8-2.0); CALCIUM 9.2 mg/dL (8.4-10.2); CREATININE, SERUM 4.82 mg/dL (0.72-1.25)
[2018-09-16] MEDS ORDERED: FUROSEMIDE INJ 10 MG/ML 4 ML VIAL IV ONE (09:15)
--- NOTE | 2018-09-16 09:16 | NUR ---
Dr Acosta to bedside.
--- NOTE | 2018-09-16 09:30 | NUR ---
IVF stopped per Dr Acosta request.
--- NOTE | 2018-09-16 09:30 | NUR ---
Report called to EDNISSE Mendoza.
--- NOTE | 2018-09-16 09:40 | NUR ---
Lifevest placed on patient per Dr Acosta request.
[2018-09-16] MEDS: LACTULOSE SYRUP 20 GM/30 ML UDC PO SCH ×4 (10:00→23:02)
--- NOTE | 2018-09-16 10:35 | NUR ---
Patient left Room 198 via bed with DENISSE Mendoza en route to CT.
[2018-09-16 10:41] LABS: BILIRUBIN,URINE SMALL (NEGATIVE); CLARITY,URINE CLOUDY (CLEAR); COLOR,URINE YELLOW (YELLOW); KETONES,URINE NEGATIVE (NEGATIVE); LEUKOCYTE ESTERASE ,URINE NEGATIVE (NEGATIVE); NITRITE,URINE NEGATIVE (NEGATIVE); PROTEIN,URINE DIPSTICK 2+ (NEGATIVE); URINE UROBILINOGEN 0.2 mg/dL (0.2 - 1)
[2018-09-16 11:02] LABS: SODIUM,URINE < 20 mmol/L
[2018-09-16 11:10] LABS: AMORPHOUS SEDIMENT,URINE FEW (FEW); BACTERIA,URINE FEW /HPF; EPITHELIAL CELLS,URINE FEW /LPF
[2018-09-16 11:13] LABS: CREATININE,URINE RANDOM 154.73 mg/dL (63-166)
[2018-09-16] MEDS: DEXTROSE 10% 1,000 ML IV SCH ×2 (11:15→11:16)
--- NOTE | 2018-09-16 11:15 | Diagnostic Imaging Report ---
EXAM: CT Chest WITHOUT contrast INDICATION: ^SOB COMPARISON: CT abdomen and pelvis 09/15/2018. Chest x-ray 09/05/2018. TECHNIQUE: Chest was scanned utilizing a multidetector helical scanner from the lung apex through the level of the adrenal glands without administration of IV contrast. Absence of intravenous contrast decreases sensitivity for detection of lymphadenopathy and vascular pathology. Coronal and sagittal reformations were obtained. Routine protocol was performed. IV CONTRAST: None COMPLICATIONS: None RADIATION DOSE: Total DLP: 546.07 mGy*cm Estimated effective dose: (DLP x 0.014 x size factor) mSv CTDIvol has been reviewed. It is below the limits set by the Radiation Protocol Committee (RPC). Dose modulation, iterative reconstruction, and/or weight based adjustment of the mA/kV was utilized to reduce the radiation dose to as low as reasonably achievable. FINDINGS: LINES/ TUBES: None. LUNGS AND AIRWAYS: Posterior biapical pleural parenchymal scarring. Subtle tiny groundglass nodules in the right middle lobe. Mild geographic mosaic attenuation, most apparent in both lower lobes. Associated atelectasis in both lower lobes. Subtle groundglass nodularity in the left upper lobe. Airways are normal. PLEURA: The pleural spaces are clear. HEART AND MEDIASTINUM: The thyroid gland is normal. No mediastinal, hilar or axillary lymphadenopathy. Moderate to severe dilated cardiomyopathy. There is no pericardial effusion. Trace plaque in the coronary arteries. Main pulmonary artery measures 3.5 cm. Ascending aorta measures 3.5 cm. UPPER ABDOMEN: Diffuse hepatic steatosis. Mild amount of free fluid around the liver. BONES: The visualized bony thorax is within normal limits. SOFT TISSUES: Unremarkable. IMPRESSION: 1. Mild diffuse ill-defined groundglass opacity with a few scattered groundglass nodules and mild mosaic attenuation. This likely represents subtle atypical infection. 2. Moderate to severe dilated cardiomyopathy. 3. Small amount of ascites. 4. Diffuse hepatic steatosis. Signed by: Dr. Salazar Armstrong M.D. on 09/16/2018 11:11 AM
[2018-09-16 11:50] LABS: CREATINE KINASE 2625 IU/L (30-200); SALICYLATE 5.8 mg/dL (0-30)
[2018-09-16] MEDS: SODIUM BICARBONATE 8.4% 150 ML in DEXTROSE 5% 1,000 ML IV SCH ×2 (12:15→23:36)
--- NOTE | 2018-09-16 13:31 | History and Physical ---
CHIEF COMPLAINT: Shortness of breath, acute kidney injury, baseline liver cirrhosis, cardiomyopathy, and hypoglycemia. HISTORY OF PRESENT ILLNESS: The patient is a 48-year-old male, was admitted from September 06, 2018 and discharged on September 09, 2018 by a previous physician on-call. The patient was found to have liver cirrhosis. He had chronic kidney failure stage 3 and chronic systolic congestive heart failure with severe cardiomyopathy. The patient had a LifeVest. He also found to have hepatic encephalopathy with increase in ammonia level. He was discharged home with lactulose twice a day and apparently, he did not get medication due to mixup prescription per the patient and he was taking Bumex. The patient came in at this time with severe shortness of breath. The patient with possible hepatorenal syndrome. BUN and creatinine elevated at 52 and 3.7 with potassium level of 5.4. The patient also has increase in liver enzyme with AST 933, ALT 888 and his creatine kinase is 2344. The patient is having difficulty with completing his sentences due to increasing shortness of breath. The patient will be transferred to the ICU from [facility]. Lasix 40 mg IV will be given. Lactulose is re-initiated. The patient will need to be placed on his LifeVest. Consultation with Cardiology and Nephrology are in progress. PAST MEDICAL HISTORY: Known congestive heart failure, cardiomyopathy, LifeVest in place. Liver cirrhosis recently diagnosed with most likely from congestive heart failure, cardiomyopathy, and congestion. Chronic kidney disease stage 3 per note. Atrial fibrillation and medical debility. SOCIAL HISTORY: The patient quit the alcohol many years ago. He does not smoke. He lives here in [place]. ALLERGIES: NO KNOWN ALLERGIES. MEDICATIONS: At home, when he was discharged last time including low-dose beta-agus and FAWAD inhibitor. Lactulose and Bumex. PHYSICAL EXAMINATION: VITAL SIGNS: Temperature is 97, blood pressure 115/92, pulse rate is 135, and respirations 22. GENERAL: The patient is awake, mild shortness of breath. HEENT: Normocephalic and atraumatic. Pupils reactive. Anicteric. NECK: Supple grossly. PULMONARY: Diminished breath sounds with rales. CARDIOVASCULAR: Tachycardia. ABDOMEN: Soft. EXTREMITIES: Trace edema. NEUROLOGIC: The patient is in and out of confusion. LABORATORY DATA: Sodium is 133, potassium 5, chloride 92, bicarb 15, BUN 62, creatinine 4.8, and glucose 159. WBC 13.6, hemoglobin 12.9, hematocrit 40.3, and platelets 278. INR is 1.49. AST is 933, ALT is 888, and total bilirubin is 5.3. IMPRESSION: 1. Cardiomyopathy with systolic dysfunction, congestive heart failure, acute on chronic. 2. Hepatic congestion with increase in liver enzyme. 3. Early rhabdomyolysis, most likely combination. 4. Early hepatic encephalopathy due to not taking lactulose. 5. Hypoglycemia. 6. Hepatorenal syndrome, currently most likely. 7. Atrial fibrillation with rapid ventricular rate response. PLAN: Cardiology consultation with Dr. De La Garza. Dr. Jaya Prince is covering. Consultation with Dr. London Ortiz for hepatorenal. Lasix IV x1 IV drip for the blood sugar. We will get an old echocardiogram and obtain a new one. Transfer the patient to the ICU. We will need to maintain the patient's status in the ICU at this time. Pulmonology consultation for critical care as well. We will continue to monitor this patient very closely in the ICU upon transfer. MD MAYE Lal/NITHIN /[id number]
[2018-09-16] MEDS: PIPERACILLIN/TAZO 2.25 GM 50 ML IV SCH ×2 (14:33→23:01)
[2018-09-16 15:25] LABS: BILIRUBIN,URINE SMALL (NEGATIVE); CLARITY,URINE TURBID (CLEAR); COLOR,URINE YELLOW (YELLOW); KETONES,URINE TRACE (NEGATIVE); LEUKOCYTE ESTERASE ,URINE TRACE (NEGATIVE); NITRITE,URINE NEGATIVE (NEGATIVE); PROTEIN,URINE DIPSTICK 2+ (NEGATIVE); URINE UROBILINOGEN 0.2 mg/dL (0.2 - 1)
[2018-09-16 15:32] LABS: AMPHETAMINES SCREEN,URINE POSITIVE (NEGATIVE); PHENCYCLIDINE SCREEN,URINE NEGATIVE (NEGATIVE)
[2018-09-16 15:33] LABS: BENZODIAZEPINES SCREEN,URINE NEGATIVE (NEGATIVE)
[2018-09-16 15:39] LABS: BACTERIA,URINE MANY /HPF; EPITHELIAL CELLS,URINE MODERATE /LPF; RBC,URINE >50 /HPF (0-5)
[2018-09-16 15:40] LABS: AMORPHOUS SEDIMENT,URINE MANY (FEW)
[2018-09-16 15:55] LABS: CREATININE,URINE RANDOM 171.54 mg/dL (63-166)
[2018-09-16 16:06] LABS: SODIUM,URINE < 20 mmol/L
--- NOTE | 2018-09-16 18:05 | NUR ---
patient ripped finnegan, concerned about urine draining. paged
--- NOTE | 2018-09-16 19:53 | Consultation ---
DATE OF CONSULTATION: 09/16/2018 Cardiology consult note REASON FOR CONSULT: CHF, elevated cardiac enzymes. CHIEF COMPLAINT: Could not be obtained due to altered mental status. HISTORY OF PRESENT ILLNESS: A 48-year-old man, history of chronic systolic heart failure, liver cirrhosis, chronic kidney disease, and history of alcohol abuse, who presented to the office for evaluation, who was sent to the ER due to altered mental status and possible seizure. The ER was noted to be in rhabdomyolysis, elevated enzymes, poor renal function, poor urine output, and altered mental status. REVIEW OF SYSTEMS: Could not be obtained due to altered mental status. PAST MEDICAL HISTORY: 1. Known chronic systolic congestive heart failure with EF less than 20%. 2. History of liver cirrhosis. 3. History of chronic kidney disease, stage 3. 4. History of atrial fibrillation. SOCIAL HISTORY: The patient used to drink heavily, quit many years ago. Does not smoke. FAMILY HISTORY: Noncontributory. MEDICATIONS: Please see MAR for list of home medications, which are reviewed. ALLERGIES: NO KNOWN DRUG ALLERGIES. OBJECTIVE: VITAL SIGNS: Temperature afebrile, pulse 110, respiratory rate 26, blood pressure 116/79, and saturating 99% on 5 L nasal cannula. GENERAL: A man, no acute distress. Altered and agitated when aroused. CARDIOVASCULAR: Tachycardic, regular. No murmurs, rubs, or gallops. LUNGS: Clear to auscultation bilaterally. ABDOMEN: Soft, nontender, nondistended. NEURO AND PSYCH: The patient is disoriented. INPATIENT MEDICATIONS: Reviewed. LABORATORY DATA: Reviewed. TELEMETRY DATA: Reviewed, shows sinus tachycardia. ASSESSMENT: 1. Chronic systolic heart failure, EF less than 20%. 2. Liver cirrhosis. 3. Altered mental status. 4. Acute kidney injury on chronic kidney disease. 5. Rhabdomyolysis. PLAN: The patient is not making much urine. CK remains elevated. We will defer decision for dialysis to primary team and Nephrology. The patient remains in sinus tachycardia which is to be expected given his acute illness. Hemodynamically stable. Otherwise, we will continue to follow closely. Thank you for this consult. MD JOSE L FieldsP/MODL /[id number]
[2018-09-16] MEDS: ONDANSETRON HCL INJ 2MG/ML 2ML 2 MG/ML VIAL IV PRN (20:58)
--- NOTE | 2018-09-16 23:34 | Consultation ---
DATE OF CONSULTATION: Pulmonary Consultation REASON FOR CONSULT: ICU management. HISTORY OF PRESENT ILLNESS: Mr. Monge is a 48-year-old male with cirrhosis of the liver. The patient was recently discharged from the hospital. He has CKD 3, heart failure, and cardiomyopathy as well. He denies any chest pain, but he has some shortness of breath and he is lethargic and weak. Cardiology has seen the patient, Dr. Jaya Prince, evaluate the patient. The patient has systolic heart failure with EF of less than 20%. In the emergency room, the lab shows the patient's creatinine is 4.82. On the , the patient's creatinine was 1.36, and he has developed acute renal failure with metabolic acidosis and bicarb of 15. He has been started on sodium bicarbonate infusion. Respiratory status at this point seems to be stable and patient is not short of breath. Chest CT showing possibly a little bit of fluid overload, however, not showing any focal infiltrates. REVIEW OF SYSTEMS: GENERAL: Denies any fever or chills. HEAD: Denies any head trauma. ENT: Denies any earaches. CVS: Denies any chest pain. RESPIRATORY: Shortness of breath. GI: Denies any nausea or vomiting. The rest of the review of systems are negative except as in HPI. PAST MEDICAL HISTORY: Cirrhosis of the liver, INESSA on CKD, congestive heart failure, cardiomyopathy, and liver cirrhosis. FAMILY AND SOCIAL HISTORY: He quit alcohol many years ago. Does not smoke. Lives here in [place]. PHYSICAL EXAMINATION: VITAL SIGNS: Temperature 98.1, pulse of 117, blood pressure 123/78, respiratory rate of 18, and O2 saturation 100% on room air. HEENT: Head is atraumatic and normocephalic. NECK: Supple. CHEST: Clear to auscultation bilaterally. HEART: S1 and S2 audible. ABDOMEN: Soft. EXTREMITIES: Pedal edema and chronic skin changes. LABORATORY DATA: White count of 13,000, hemoglobin 12.9, and platelets 278. Chemistry; sodium 133, potassium 5.0, it was 5.4 yesterday, creatinine was 3.65 and now it is 4.82, BUN 62, bicarb of 15. AST and ALT elevated to [address] of the chest reviewed, showing normal glass which is likely fluid overload. ASSESSMENT AND PLAN: 1. Troy Monge is a 48-year-old male with INESSA, liver cirrhosis, and cardiomyopathy. Currently, respiratory status is stable. Plan, oxygen as needed to keep the O2 saturation more than or equal to 92%. 2. Sodium bicarbonate infusion has been started for severe metabolic acidosis. 3. Defer the need for hemodialysis to Nephrology. 4. No need for antibiotics at this point. 5. Cardiomyopathy management per Cardiology. Thank you for this consult and report. MD DAYAMI Miller/MODL /[id number]
[2018-09-17] VITALS (25 sets, daily range): BP systolic 84–121; BP diastolic 59–101
[2018-09-17] MEDS: MORPHINE SULFATE INJ 4 MG/ML INJ 1ML IV PRN (04:57)
[2018-09-17 05:11] LABS: BASOPHILS % 0.1 % (0.0-1.0); EOSINOPHILS % 0.2 % (0.0-6.0); HEMATOCRIT 39.5 % (38.2-49.6); HEMOGLOBIN 12.4 g/dL (14.0-18.0); LYMPHOCYTES # (AUTO) 1.5 (1.0-3.2); LYMPHOCYTES % 6.4 % (18.0-39.1); MEAN CORPUSCULAR HEMOGLOBIN 31.6 pg (28-32); MEAN CORPUSCULAR HGB CONC 31.4 g/dL (31-35); MEAN CORPUSCULAR VOLUME 100.5 fL (81-99); MONOCYTES # (AUTO) 2.1 (0.2-0.8); MONOCYTES % 9.1 % (4.4-11.3); NEUTROPHILS # (AUTO) 18.9 (2.1-6.9); NEUTROPHILS % 82.9 % (38.7-80.0); PLATELET COUNT 233 x10e3/uL (140-360); RED BLOOD COUNT 3.93 x10e6/uL (4.3-5.7); RED CELL DISTRIBUTION WIDTH 17.2 % (11.7-14.4)
[2018-09-17 05:39] LABS: ALBUMIN 3.8 g/dL (3.5-5.0); ALBUMIN/GLOBULIN RATIO 1.4 (0.8-2.0); ANION GAP 34.9 mmol/L (8-16); CALCIUM 7.3 mg/dL (8.4-10.2); CREATININE, SERUM 6.38 mg/dL (0.72-1.25); POTASSIUM 5.9 mmol/L (3.5-5.1)
[2018-09-17] MEDS: PIPERACILLIN/TAZO 2.25 GM 50 ML IV SCH ×3 (05:39→23:06)
[2018-09-17] MEDS ORDERED: SODIUM BICARBONATE 8.4% INJ 50 ML SYR IV STA (06:33)
[2018-09-17] MEDS ORDERED: DEXTROSE 50% SYRINGE 50 ML IV STA (06:33)
[2018-09-17] MEDS ORDERED: CALCIUM GLUCONATE 10% INJ 4.65 MEQ in SODIUM CHLORIDE 0.9% 50ML 50 ML IV ONE (06:45)
[2018-09-17] MEDS ORDERED: INSULIN REGULAR, HUMAN 100 UNIT/1 ML 3ML VIAL IV ONE (06:45)
[2018-09-17 06:47] LABS: LYMPHOCYTES % (MANUAL) 6 % (19-48); MONOCYTES % (MANUAL) 6 % (3.4-9.0); NEUTROPHILS % (MANUAL) 88 % (40-74); PLATELET ESTIMATE ADEQUATE
[2018-09-17 06:48] LABS: ANISOCYTOSIS SLIGHT; HYPOCHROMASIA SLIGHT; PLATELET MORPHOLOGY COMMENT FEW LARGE; RBC MORPHOLOGY COMMENT NORMAL
[2018-09-17] MEDS: LACTULOSE SYRUP 20 GM/30 ML UDC PO SCH ×4 (07:05→23:19)
[2018-09-17] MEDS: SODIUM BICARBONATE 8.4% 150 ML in DEXTROSE 5% 1,000 ML IV SCH (11:22)
--- NOTE | 2018-09-17 11:35 | Diagnostic Imaging Report ---
EXAMINATION: CHEST XRAY LINE PLACEMENT INDICATION: ^right trialysis catheter placement verification ^[id number] ^[id number] COMPARISON: CT chest 09/16/2018 and chest radiograph 09/05/2018 FINDINGS: AP view TUBES and LINES: Interval placement of a right IJ trialysis catheter with tip overlying the cavoatrial junction. External defibrillator overlying the chest. LUNGS: Lungs are well inflated. Lungs are clear. There is no evidence of pneumonia or pulmonary edema. PLEURA: No pleural effusion or pneumothorax. HEART AND MEDIASTINUM: Marked enlargement of the cardiac silhouette is unchanged. BONES AND SOFT TISSUES: No acute osseous lesion. Soft tissues are unremarkable. UPPER ABDOMEN: No free air under the diaphragm. IMPRESSION: Interval placement of a right IJ trialysis catheter with tip overlying the cavoatrial junction. No pneumothorax. Signed by: Dr. Herminia Cloud M.D. on 09/17/2018 11:31 AM
--- NOTE | 2018-09-17 11:52 | NUR ---
Right-sided trialysis catheter placed by Dr Vance. Alvina to use per CXR. Dr Lul Frias to bedside. [facility] called and made aware of the need for STAT hemodialysis.
[2018-09-17] MEDS ORDERED: HEPARIN SOD (PORCINE) 1000 UNIT/ML SDV ONE (15:03)
--- NOTE | 2018-09-17 18:32 | NUR ---
HD completed with no fluid taken off to maintain hemodynamic stability.
[2018-09-17] MEDS ORDERED: ALBUTEROL/IPRATROPIUM 3 ML NEB NEB PRN (20:19)
--- NOTE | 2018-09-17 23:08 | Progress Note ---
DATE: 09/17/2018 Cardiology Progress Note SUBJECTIVE: Started on dialysis today. OBJECTIVE: VITAL SIGNS: Temperature afebrile, pulse 120, respiratory rate 15, blood pressure 105/85, saturating 100% on room air. GENERAL: man, in no acute distress. CARDIOVASCULAR: Tachycardic, irregular. No murmurs, rubs, or gallops. LUNGS: Coarse breath sounds in bilateral bases. ABDOMEN: Soft, nontender, nondistended. NEURO AND PSYCH: Alert and oriented to person, place, and time. INPATIENT MEDICATIONS: Reviewed. LABORATORY DATA: Reviewed. TELEMETRY DATA: Reviewed, shows sinus tachycardia. ASSESSMENT: 1. Chronic systolic heart failure, EF less than 20%. 2. Liver cirrhosis secondary to congestive hepatopathy. 3. Acute kidney injury on chronic kidney disease, now on dialysis. 4. Rhabdomyolysis. 5. Altered mental status. PLAN: Supportive care and dialysis per primary team. From cardiovascular standpoint, he is stable, although his EF is very low and he remains tachycardic. This is likely response to his current medical condition, although he appears better today. Prognosis is still poor given multiorgan dysfunction. If blood pressure remains stable, we will attempt to start low-dose metoprolol for treatment of his heart failure. No FAWAD inhibitor or ARB given acute kidney injury. Thank you for this consult. We will continue to follow. MD JOSE L FieldsP/MIKIEL /[id number]
[2018-09-18] VITALS (24 sets, daily range): BP systolic 93–120; BP diastolic 74–95
[2018-09-18 05:35] LABS: BASOPHILS % 0.1 % (0.0-1.0); EOSINOPHILS % 0.1 % (0.0-6.0); HEMATOCRIT 35.7 % (38.2-49.6); HEMOGLOBIN 11.6 g/dL (14.0-18.0); LYMPHOCYTES # (AUTO) 1.4 (1.0-3.2); LYMPHOCYTES % 10.3 % (18.0-39.1); MEAN CORPUSCULAR HEMOGLOBIN 31.7 pg (28-32); MEAN CORPUSCULAR HGB CONC 32.5 g/dL (31-35); MEAN CORPUSCULAR VOLUME 97.5 fL (81-99); MONOCYTES % 7.4 % (4.4-11.3); NEUTROPHILS # (AUTO) 10.7 (2.1-6.9); NEUTROPHILS % 81.6 % (38.7-80.0); PLATELET COUNT 165 x10e3/uL (140-360); RED BLOOD COUNT 3.66 x10e6/uL (4.3-5.7); RED CELL DISTRIBUTION WIDTH 17.2 % (11.7-14.4)
[2018-09-18 05:54] LABS: ANION GAP 19.4 mmol/L (8-16); CALCIUM 7.2 mg/dL (8.4-10.2); CREATININE, SERUM 4.56 mg/dL (0.72-1.25); POTASSIUM 4.4 mmol/L (3.5-5.1)
[2018-09-18] MEDS: LACTULOSE SYRUP 20 GM/30 ML UDC PO SCH ×3 (06:46→18:15)
[2018-09-18] MEDS: PIPERACILLIN/TAZO 2.25 GM 50 ML IV SCH ×4 (06:46→21:17)
[2018-09-18] MEDS: MORPHINE SULFATE INJ 4 MG/ML INJ 1ML IV PRN (07:03)
--- NOTE | 2018-09-18 08:12 | NUR ---
spoke with Dr. Reed renal, updated with am lab results. orders received for HD today and to discontinue bicarb gtt.
[2018-09-18] MEDS ORDERED: SODIUM CHLORIDE 0.9% 1000ML 2,000 ML ONE (08:41)
[2018-09-18] MEDS ORDERED: SODIUM CHLORIDE 0.9% 250ML 250 ML ONE (08:41)
[2018-09-18] MEDS ORDERED: HEPARIN SOD (PORCINE) 1000 UNIT/ML SDV ONE (08:41)
--- NOTE | 2018-09-18 09:20 | Diagnostic Imaging Report ---
EXAM: Renal Ultrasound INDICATION: ^jamilah ^[id number] ^[id number] COMPARISON: None TECHNIQUE: Transverse and longitudinal images of the kidneys and bladder were obtained. FINDINGS: Right Kidney: Length: 10.5 cm Appearance: Increased echogenicity. Collecting system: No hydronephrosis Stones: None Cyst/Mass: None Left Kidney: Length: 11.7 cm Appearance: Increased echogenicity. Collecting system: No hydronephrosis Stones: None Cyst/Mass: None Liver parenchyma remains echogenic. Bladder: Decompressed bladder with Chavez catheter in place. IMPRESSION: No hydronephrosis or renal calculi. Unchanged increased bilateral renal parenchymal echogenicity can be seen with medical renal disease. Decompressed bladder with Chavez in place. Signed by: Trinidad Pickering MD on 09/18/2018 9:16 AM
--- NOTE | 2018-09-18 09:50 | Consultation ---
DATE OF CONSULTATION: 09/16/2018 Nephrology Consultation Note REASON FOR CONSULTATION: Acute kidney injury. REFERRING PHYSICIAN: ER physician. HISTORY OF PRESENT ILLNESS: This is a 48-year-old white gentleman with past medical history of liver cirrhosis, chronic kidney disease stage 3, and history of chronic systolic and diastolic congestive heart failure, who was admitted with nausea, vomiting, and back pain. He said that he had been working outside and thinks he got dehydrated. His serum creatinine was noted to be 4.8 with a bicarbonate of 50 for which Nephrology consultation was obtained for further evaluation and management. At the time of my examination, he appeared somewhat ill-looking in the ICU and did complain of nausea and vomiting earlier, but no headache, blurring of vision, chest pain, shortness of breath, abdominal pain, diarrhea, bleeding in the stools, skin rash, or any focal weakness, but it is mentioned that his urine has been extremely dark. PAST MEDICAL AND SURGICAL HISTORY: As above. PERSONAL AND SOCIAL HISTORY: No history of alcohol or tobacco. MEDICATIONS: See the medication sheet that has been reviewed. PHYSICAL EXAMINATION: VITAL SIGNS: Blood pressure 122/85, respirations 28, heart rate 134, and temperature 98.6. HEENT: Head is atraumatic, normocephalic. Pupils re reactive to light. Mouth, oral mucosa is somewhat dry. NECK: Supple. CHEST: Revealed fair air entry. HEART: S1 and S2 with tachycardia. ABDOMEN: Soft. Bowel sounds positive. EXTREMITIES: No edema. 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 Somewhat lethargic and appeared to be somewhat confused. Cranial nerves are intact. There is no gross motor deficit noted. LABORATORY DATA: Sodium 133, potassium 5, chloride 92, CO2 of 15, BUN 52, and creatinine 4.8. His previous serum creatinine between 1 and 1.8 mg/dL. Total bilirubin 5.3, AST 933, ALT 888, albumin 3.6, and glucose 159. specific gravity more than 1.030, pH 5.5, 2+ protein, and 3+ blood. IMPRESSION: 1. Acute kidney injury on mild chronic kidney disease, probably chronic kidney disease stage 2/3, most likely secondary to volume depletion with nausea, vomiting, and heat exhaustion, causing prerenal azotemia. He does also have acute tubular necrosis and questionable rhabdomyolysis, although CPK is not available at the present time. He is nonoliguric by history. 2. Normal anion gap metabolic acidosis secondary to acute kidney injury. 3. History of liver cirrhosis and congestive heart failure. PLAN: Strict I's and O's. No nonsteroidal anti inflammatory drugs, FAWAD inhibitors, IV dye, and ARB. Check urine drug screen. UA, spot urine, sodium, creatinine, and ultrasound of the kidneys. Continue D10 for hypoglycemia and start D5W with 3 amps of bicarbonate at 100 mL an hour. No acute indication for dialysis at the present time, but I will be following the patient closely. We will check labs again in the morning and later today. Case was discussed with the bedside nurse. Further recommendations to follow. Thank you for the consultation. Melissa Frias MD SA/MODL /[id number]
[2018-09-18] MEDS ORDERED: HEPARIN SOD (PORCINE) 1000 UNIT/ML SDV IV PRN (14:15)
[2018-09-18] MEDS ORDERED: SODIUM CHLORIDE 0.9% 1000ML 2,000 ML IV PRN (14:15)
[2018-09-18] MEDS ORDERED: SODIUM CHLORIDE 0.9% 250ML 500 ML IV PRN (14:15)
[2018-09-18] MEDS ORDERED: ALBUMIN 25% 12.5GM 50ML 100 ML IV ONE (14:33)
--- NOTE | 2018-09-18 17:00 | NUR ---
cardiology notified of elevated heart rate sinus rhythm . bp wnl.
--- NOTE | 2018-09-18 17:32 | Progress Note ---
DATE: Cardiology Progress Note SUBJECTIVE: The patient is feeling tired, lethargic, undergoing dialysis. OBJECTIVE: VITAL SIGNS: Temperature is 98.0 degrees Fahrenheit, heart rate is 125, respirations are 20, blood pressure is 111/84, and oxygen saturation is 98% on 3 L nasal cannula. GENERAL: Chronically ill-appearing, in no apparent distress. CARDIOVASCULAR: Tachycardic. Regular rhythm. No murmurs. LUNGS: Diminished breath sounds at bases. ABDOMEN: Soft, nontender, and nondistended. EXTREMITIES: Edema. LABORATORY DATA: Reviewed. Hemoglobin 11.6, creatinine 4.56. Telemetry monitoring revealed sinus tachycardia. IMPRESSION: 1. Chronic systolic congestive heart failure. 2. Liver cirrhosis. 3. Ozyse-kt-gyddehp kidney disease. 4. Rhabdomyolysis. RECOMMENDATIONS: We will start low-dose beta-blockers for better heart rate reduction. We will avoid FAWAD inhibitor at this point in time given acute kidney injury. Volume management per Nephrology. Otherwise, continue to closely monitor on telemetry. Ramon Delgado DO BM/MODL /[id number]
[2018-09-18] MEDS: METOPROLOL SUCCINATE 25 MG TAB XL PO SCH (18:15)
--- NOTE | 2018-09-18 21:51 | NUR ---
Spoke with Dr. Meseret Prince regarding sustained HR 127-129. MD aware and stated no need for PRN medications. Orders received for extra dose of metoprolol PO.
[2018-09-18] MEDS ORDERED: METOPROLOL SUCCINATE 25 MG TAB XL PO NR (22:00)
[2018-09-19] VITALS (24 sets, daily range): BP systolic 82–130; BP diastolic 64–97
[2018-09-19] MEDS: LACTULOSE SYRUP 20 GM/30 ML UDC PO SCH ×6 (00:25→23:36)
[2018-09-19] MEDS: MORPHINE SULFATE INJ 4 MG/ML INJ 1ML IV PRN ×2 (00:25→21:44)
[2018-09-19 05:11] LABS: BASOPHILS % 0.2 % (0.0-1.0); EOSINOPHILS % 0.3 % (0.0-6.0); HEMATOCRIT 35.8 % (38.2-49.6); HEMOGLOBIN 11.5 g/dL (14.0-18.0); LYMPHOCYTES # (AUTO) 1.7 (1.0-3.2); LYMPHOCYTES % 16.5 % (18.0-39.1); MEAN CORPUSCULAR HEMOGLOBIN 31.4 pg (28-32); MEAN CORPUSCULAR HGB CONC 32.1 g/dL (31-35); MEAN CORPUSCULAR VOLUME 97.8 fL (81-99); MONOCYTES # (AUTO) 1.3 (0.2-0.8); MONOCYTES % 12.6 % (4.4-11.3); NEUTROPHILS # (AUTO) 7.4 (2.1-6.9); NEUTROPHILS % 69.8 % (38.7-80.0); PLATELET COUNT 151 x10e3/uL (140-360); RED BLOOD COUNT 3.66 x10e6/uL (4.3-5.7); RED CELL DISTRIBUTION WIDTH 17.2 % (11.7-14.4)
[2018-09-19 05:26] LABS: ANION GAP 20.2 mmol/L (8-16); CREATININE, SERUM 3.53 mg/dL (0.72-1.25); POTASSIUM 4.2 mmol/L (3.5-5.1)
[2018-09-19] MEDS: PIPERACILLIN/TAZO 2.25 GM 50 ML IV SCH ×3 (05:27→21:33)
[2018-09-19] MEDS ORDERED: SODIUM CHLORIDE 0.9% 1000ML 1,000 ML IV SCH (10:00)
[2018-09-19] MEDS: METOPROLOL SUCCINATE 25 MG TAB XL PO SCH (11:17)
--- NOTE | 2018-09-19 11:19 | NUR ---
patient c/o right shoulder pain that started two weeks ago. "I feel pain in my right upper lung" notified León Read and Angel of patient complaint. ct of chest ordered.
[2018-09-19] MEDS ORDERED: DIGOXIN INJ 0.25 MG/ML 2 ML AMP IV ONE (12:15)
--- NOTE | 2018-09-19 12:56 | Progress Note ---
DATE: Cardiology Progress Note SUBJECTIVE: The patient feels tired, short of breath. OBJECTIVE: VITAL SIGNS: Temperature is 97.1, heart rate is 123, oxygen saturation is 96% on room air, respiratory rate is 16, blood pressure is 107/87. GENERAL: He is a chronically ill-appearing male, lying comfortably in bed, in no apparent distress. CARDIOVASCULAR: Tachycardic. Regular rhythm. No murmurs. LUNGS: Diminished breath sounds at bases. ABDOMEN: Soft, nontender, and nondistended. EXTREMITIES: Trace edema. CARDIOVASCULAR MEDICATIONS: Reviewed. LABORATORY DATA: Reviewed. Hemoglobin 11.5. Creatinine is 3.53. Urine drug screen is positive for opiates, methadone and amphetamines. Telemetry monitoring revealed sinus tachycardia. IMPRESSION: 1. Ctzsa-rp-lvjvqjp systolic congestive heart failure. 2. Liver cirrhosis. 3. Polysubstance abuse. 4. Bjgje-nr-xrbiwra kidney disease, requiring dialysis. 5. Rhabdomyolysis. RECOMMENDATIONS: We will continue to increase beta-blockers for better heart rate reduction. Avoid FAWAD inhibitors or ARBs at this point in time given acute kidney injury. Volume management per Nephrology. Polysubstance abuse discussed and cessation was advised. Continue to monitor closely on telemetry. Ramon Delgado DO BM/MODL /[id number]
--- NOTE | 2018-09-19 13:35 | NUR ---
Dr. Ortiz notified of bnp and ck results. new orders placed.
--- NOTE | 2018-09-19 13:37 | NUR ---
educated patient with 1.2L fluid restrictions. pt will need enforcement of change in diet.
[2018-09-19] MEDS ORDERED: BUMETANIDE INJ 0.25MG/ML 4ML VIAL IV NR (13:45)
--- NOTE | 2018-09-19 14:42 | NUR ---
PT DISCUSSED IN BARRIER ROUNDS; POSSIBLE NEW DIALYSIS, ON LASIZ, BNP-[id number], LACTULOSE, FLUID RESTRICTIONS, STATES HAVING CHEST PAIN IN UPPER LUNG AREA, CT OF CHEST ORDERED, SINUS RHYTHM, ELEVATED HEART RATE, ON METOPROLOL,
--- NOTE | 2018-09-19 15:08 | Diagnostic Imaging Report ---
EXAM: CT Chest WITHOUT intravenous contrast 09/19/2018 11:18 AM INDICATION: Chest pain COMPARISON: Chest radiograph of 09/17/2018 TECHNIQUE: Chest was scanned utilizing a multidetector helical scanner from the lung apex through the level of the adrenal glands without administration of IV contrast. Coronal and sagittal reformations were obtained. Routine protocol was performed. IV CONTRAST: None RADIATION DOSE: Total DLP: 498.3 mGy*cm. Dose modulation, iterative reconstruction, and/or weight based adjustment of the mA/kV was utilized to reduce the radiation dose to as low as reasonably achievable. COMPLICATIONS: None FINDINGS: LINES/ TUBES: Right IJ nontunneled hemodialysis catheter terminates at the superior cavoatrial junction. LUNGS AND AIRWAYS: The central airways are patent. Compared to the most recent prior chest CT of 09/16/2018, there has been interval development of new 3.7 x 3.0 cm area of focal consolidation along the posterior peripheral left lower lobe (series 3 image 95). Other scattered ill-defined areas of groundglass opacity appear unchanged. Bibasilar subsegmental atelectasis. PLEURA: No pleural effusion or pneumothorax. HEART AND MEDIASTINUM: The partially visualized thyroid gland appears unremarkable. No supraclavicular, mediastinal, or hilar lymphadenopathy. No axillary, subpectoral, or internal mammary lymphadenopathy. There is severe multichamber cardiomegaly with the left atrium measuring up to 7.7 cm short axis. No pericardial effusion. The main pulmonary artery measures up to 4.0 cm. UPPER ABDOMEN: Limited noncontrast images of the upper abdomen demonstrate abdominal ascites. No focal abnormality in the partially visualized liver or spleen. The kidneys, adrenals, and pancreas are not visualized. BONES: The visualized bony thorax is within normal limits. SOFT TISSUES: Unremarkable. IMPRESSION: Interval development of 3.7 x 3.0 cm area of focal consolidation along the posterior dependent left lower lobe is consistent with aspiration/pneumonia. Other focal round glass opacities concerning for infection appear unchanged. Unchanged severe multichamber cardiomegaly. Signed by: Trinidad Pickering MD on 09/19/2018 3:05 PM
[2018-09-19] MEDS: BUMETANIDE 10 MG in SODIUM CHLORIDE 0.9% 100 ML 60 ML IV SCH (16:12)
[2018-09-19] MEDS: METOPROLOL SUCCINATE 50 MG TAB XL PO SCH (17:35)
--- NOTE | 2018-09-19 22:00 | NUR ---
Educated patient on importance of fluid restriction. Provided patient with marked cups to track fluid intake. Patient verbalized understanding.
[2018-09-20] VITALS (25 sets, daily range): BP systolic 89–157; BP diastolic 52–124
[2018-09-20] MEDS: BUMETANIDE 10 MG in SODIUM CHLORIDE 0.9% 100 ML 60 ML IV SCH ×2 (00:06→14:37)
[2018-09-20 05:19] LABS: ALBUMIN/GLOBULIN RATIO 1.3 (0.8-2.0); ANION GAP 15.9 mmol/L (8-16); CALCIUM 8.2 mg/dL (8.4-10.2); CREATININE, SERUM 3.27 mg/dL (0.72-1.25)
[2018-09-20 05:21] LABS: POTASSIUM 2.9 mmol/L (3.5-5.1)
[2018-09-20] MEDS: PIPERACILLIN/TAZO 2.25 GM 50 ML IV SCH ×3 (05:43→22:13)
[2018-09-20] MEDS: LACTULOSE SYRUP 20 GM/30 ML UDC PO SCH ×4 (05:43→22:59)
--- NOTE | 2018-09-20 05:58 | NUR ---
Notified Dr. Walker of critical potassium level. Orders received.
[2018-09-20] MEDS ORDERED: POTASSIUM CHLORIDE 20MEQ/100ML 300 ML IV ONE (06:00)
[2018-09-20 06:22] LABS: MAGNESIUM 2.2 MG/DL (1.3-2.1); PHOSPHORUS 4.6 MG/DL (2.3-4.7)
--- NOTE | 2018-09-20 07:50 | Diagnostic Imaging Report ---
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 Ricky Vance Pre-operative diagnosis: Requiring HD access. Post-operative diagnosis: Status post HD catheter placement Sedation: Local Additional Medications: Lidocaine 1% for local anesthesia Estimated blood loss: None Specimens: None Implants: 13 Fr x 15 cm Trialysis non-tunneled hemodialysis catheter TECHNIQUE/FINDINGS: Informed consent was obtained from the patient and documented in the medical record after discussion of risks and benefits. The patient was placed in the supine position. Preliminary sonographic evaluation of the right neck confirmed a patent and compressible right internal jugular vein. The neck was then prepped and draped in a standard sterile fashion. Subsequently, 1% lidocaine was infiltrated into the skin and subcutaneous tissues for local anesthesia. Then under continuous sonographic guidance, a 21 gauge needle was advanced into the right internal jugular vein and an .018'' wire was placed. A 5 Fr micropuncture sheath was placed and the existing wire was exchanged for an .035'' Amplatz wire. The tract was sequentially dilated. Then, a 13 Fr x 15 cm Trialysis triple lumen non-tunneled hemodialysis catheter was advanced. The wire was then removed. Each lumen was tested and showed adequate bidirectional flow. The catheter was secured to the skin with Monocryl, flushed with saline, and covered by a sterile dressing. No evidence of immediate complication. IMPRESSION: Placement of a right IJ non-tunneled triple lumen hemodialysis catheter with ultrasound guidance as above. Signed by: Dr. Ricky Vance MD on 09/20/2018 7:47 AM
[2018-09-20] MEDS: METOPROLOL SUCCINATE 50 MG TAB XL PO SCH ×2 (08:07→17:36)
--- NOTE | 2018-09-20 09:51 | Progress Note ---
DATE: SUBJECTIVE: The patient is lethargic, fatigued, heart rate improved. No acute events. OBJECTIVE: VITAL SIGNS: Temperature is 97.6, heart rate is 112, respirations are 14, blood pressure is 108/78, and ox saturation is 98% on room air. GENERAL: He is a chronically ill-appearing man, lying comfortably in bed, in no apparent distress. Slightly altered, lethargic. CARDIOVASCULAR: Tachycardic, regular rhythm. Systolic murmur at the left sternal border. LUNGS: Diminished breath sounds at bases. ABDOMEN: Soft, nontender, nondistended. EXTREMITIES: Edema. LABORATORY DATA: Hemoglobin 11.5, creatinine 3.27, potassium 2.9, ALT 1435, AST is 624. CT of the chest shows interval development of 3.7 x 3 cm area of focal consolidation along the posterior dependent left lower lobe consistent with aspiration pneumonia with cardiomegaly. TELEMETRY: Monitoring revealed sinus tachycardia. IMPRESSION: 1. Pjxxs-mx-bhgvkkz systolic congestive heart failure. 2. Liver cirrhosis. 3. Polysubstance abuse. 4. Kymfl-rt-nztanez kidney disease, requiring hemodialysis. 5. Rhabdomyolysis. 6. Mqycn-xe-drjaccs liver injury. 7. Hypokalemia. 8. Sinus tachycardia. RECOMMENDATIONS: Beta-blockers were increased for better heart rate reduction. Avoiding FAWAD inhibitors or ARBs at this point in time given acute kidney injury and borderline blood pressures. Volume management per Nephrology with hemodialysis. If required for better heart rate reduction, can give digoxin, however, this will need to be given after adequate potassium replacement. Continue close hemodynamic and telemetry monitoring. Ramon Delgado DO BM/MODL /[id number]
--- NOTE | 2018-09-20 13:50 | NUR ---
SPOKE WITH PATIENT ABOUT DIALYSIS, HE STATES HE LIVES BY THE [facility] AND WANTS M, [facility] AND [facility], MIDDAY SHIFT. SIGNED CHOICE FILED IN CHART, FAXED CLINICALS TO ADMISSIONS LINE.
[2018-09-20] MEDS: ONDANSETRON HCL INJ 2MG/ML 2ML 2 MG/ML VIAL IV PRN (21:40)
[2018-09-21] VITALS (14 sets, daily range): BP systolic 89–118; BP diastolic 61–100
[2018-09-21] MEDS: BUMETANIDE 10 MG in SODIUM CHLORIDE 0.9% 100 ML 60 ML IV SCH ×2 (00:24→11:58)
[2018-09-21] MEDS: MORPHINE SULFATE INJ 4 MG/ML INJ 1ML IV PRN (03:21)
[2018-09-21] MEDS: PIPERACILLIN/TAZO 2.25 GM 50 ML IV SCH ×3 (06:31→21:05)
[2018-09-21] MEDS: LACTULOSE SYRUP 20 GM/30 ML UDC PO SCH ×4 (06:31→23:07)
[2018-09-21 08:28] LABS: BASOPHILS % 0.3 % (0.0-1.0); EOSINOPHILS # (AUTO) 0.1 (0.0-0.4); EOSINOPHILS % 0.5 % (0.0-6.0); HEMATOCRIT 39.4 % (38.2-49.6); HEMOGLOBIN 13.1 g/dL (14.0-18.0); LYMPHOCYTES # (AUTO) 1.5 (1.0-3.2); LYMPHOCYTES % 16.5 % (18.0-39.1); MEAN CORPUSCULAR HEMOGLOBIN 31.6 pg (28-32); MEAN CORPUSCULAR HGB CONC 33.2 g/dL (31-35); MEAN CORPUSCULAR VOLUME 95.2 fL (81-99); MONOCYTES # (AUTO) 1.5 (0.2-0.8); MONOCYTES % 15.8 % (4.4-11.3); NEUTROPHILS # (AUTO) 6.2 (2.1-6.9); NEUTROPHILS % 66.6 % (38.7-80.0); PLATELET COUNT 139 x10e3/uL (140-360); RED BLOOD COUNT 4.14 x10e6/uL (4.3-5.7); RED CELL DISTRIBUTION WIDTH 16.7 % (11.7-14.4)
[2018-09-21] MEDS: METOPROLOL SUCCINATE 50 MG TAB XL PO SCH ×2 (08:50→17:28)
[2018-09-21 08:56] LABS: ALBUMIN/GLOBULIN RATIO 1.1 (0.8-2.0); ANION GAP 13.5 mmol/L (8-16); CALCIUM 8.5 mg/dL (8.4-10.2); CREATININE, SERUM 2.18 mg/dL (0.72-1.25); MAGNESIUM 1.7 MG/DL (1.3-2.1); POTASSIUM 3.5 mmol/L (3.5-5.1)
--- NOTE | 2018-09-21 09:04 | NUR ---
Attempted to page Dr. Cid
[2018-09-21 09:24] LABS: LYMPHOCYTES % (MANUAL) 11 % (19-48); MONOCYTES % (MANUAL) 21 % (3.4-9.0); NEUTROPHILS % (MANUAL) 68 % (40-74); PLATELET ESTIMATE ADEQUATE; PLATELET MORPHOLOGY COMMENT NORMAL; RBC MORPHOLOGY COMMENT NORMAL
--- NOTE | 2018-09-21 10:40 | NUR ---
PATIENT RECEIVED FROM ICU PER WHEEL CHAIR. ALERT AND VERBALLY RESPONSIVE. SKIN WARM AND DRY TO TOUCH, VEGAS CATHETER DRAINING CLEAR YELLOW URINE, TELEMETRY BOX [address] DENIED PAIN AT THIS TIME, SITTING AT BED SIDE. BED IN LOWER POSITION AND LOCKED, CALL LIGHT AT REACH.
--- NOTE | 2018-09-21 10:55 | NUR ---
SPOKE WITH PT, INFORMED ACCEPTED AT [facility] , AND [facility] AT 33O PM, GAVE COPY OF LETTER, FILED IN CHART. LET KNOW WHEN TO SHOW UP AND WHAT TO BRING.
[2018-09-21] MEDS ORDERED: SODIUM CHLORIDE 0.9% 250ML 250 ML ONE (13:13)
--- NOTE | 2018-09-21 14:11 | NUR ---
Nutrition LOS Note RD Recommendation(s) for Physician / Nutrition Prescription: continue with diet as prescribed Plan of Care: Patient has been screened and assessed for nutrition risk. At this time, the patient does not pose any nutrition risk. No further nutrition intervention is warranted at this time. Will re-evaluate if consulted by medical staff. Nutrition reason for involvement: LOS Primary Dx: 1. Clqhd-lk-tvvljdp systolic congestive heart failure. 2. Liver cirrhosis. 3. Polysubstance abuse. 4. Kmpgb-lx-lwirycu kidney disease, requiring hemodialysis. PMH: Known congestive heart failure, cardiomyopathy, LifeVest in place. Liver cirrhosis recently diagnosed with most likely from congestive heart failure, cardiomyopathy, and congestion. Chronic kidney disease stage 3 per note. Atrial fibrillation and medical debility. Ht: 73in Wt: 180lb BMI: 23.7kg/m2 IBW: 184lb +/- 10% RD Assessment: (09/21) 48yo M, who was admitted for SOB and INESSA. Pt was discussed during AM rounds. Renal function has improved. Pt will be going to [facility] for outpatient HD. Visited pt in the room. Pt reported improvement in his appetite with 75% meal intake. Mother has been bringing foods from outside. Pt denied any nausea or vomiting. LBM 09/21. Pt denied any chewing or swallowing difficulty. Weight has been stable. Current diet is adequate and appropriate. Malnutrition Evaluation (09/21/2018) The patient does not meet criteria for a specified degree of malnutrition at this time. Will re-evaluate at follow-up as appropriate. Diet Education Needs Assessment: Diet education not indicated. Hawa WNL, rec outpatient nutrition education if these labs are elevated. Nutrition Care Level: Low Michelle Al, MS, RD, LD
--- NOTE | 2018-09-21 15:49 | NUR ---
VEGAS CATHETER DISCONTINUE ORDERED, PATIENT IS DUE TO VOID. ALL PERSONAL ITEMS CLOSE TO PATIENT, ,CALL LIGHT AT REACH.
[2018-09-21] MEDS ORDERED: POTASSIUM CHLORIDE 20 MEQ TAB CR PO ONE (16:00)
--- NOTE | 2018-09-21 18:06 | NUR ---
PATIENT VOIDED 200 CC OF CLEAR YELLOW URINE TO URINAL. IN BED RESTING WITH CALL LIGHT AT REACH.
--- NOTE | 2018-09-21 20:15 | NUR ---
CALLED DR DIAS AND LEFT MESSAGE REGARDING TO PATIENT'S RUNNING AFIB AVR. AWAITING FOR MD TO CALL BACK
--- NOTE | 2018-09-21 21:00 | NUR ---
SPOKE WITH DR DIAS ABOUT PATIENT STATUS. ORDER TO CALL DR GUERRERO FOR ANY TREATMENT
--- NOTE | 2018-09-21 21:05 | NUR ---
PAGED DR GUERRERO REGARDING TO AFIB RVR. LEFT MESSAGE. AWAITING FOR MD TO CALL BACK
--- NOTE | 2018-09-21 21:40 | NUR ---
PAGED DR ROLLINS AGAIN. NEW ORDER RECEIVED
[2018-09-21] MEDS ORDERED: DIGOXIN INJ 0.25 MG/ML 2 ML AMP IV PRN (21:45)
[2018-09-22] VITALS (8 sets, daily range): BP systolic 97–120; BP diastolic 67–89
--- NOTE | 2018-09-22 03:20 | NUR ---
COMPLETED DRESSING CHANGE TO RIGHT IJ TRIALYSIS CATHETER
[2018-09-22 05:38] LABS: ALBUMIN 2.8 g/dL (3.5-5.0); ANION GAP 15.9 mmol/L (8-16); CALCIUM 8.5 mg/dL (8.4-10.2); CREATININE, SERUM 2.15 mg/dL (0.72-1.25)
[2018-09-22 05:39] LABS: POTASSIUM 2.9 mmol/L (3.5-5.1)
[2018-09-22] MEDS: LACTULOSE SYRUP 20 GM/30 ML UDC PO SCH ×4 (05:55→20:37)
[2018-09-22] MEDS: PIPERACILLIN/TAZO 2.25 GM 50 ML IV SCH ×3 (05:55→21:02)
--- NOTE | 2018-09-22 06:29 | NUR ---
RECEIVED CRITICAL LAB RESULT K-2.9, SPOKE TO DR DIAS. NEW ORDER RECEIVED
[2018-09-22] MEDS ORDERED: POTASSIUM CHLORIDE 20 MEQ TAB CR PO ONE ×3 (07:00→21:46)
--- NOTE | 2018-09-22 07:00 | NUR ---
RCD PT AT BED PT IS ALERT AND ORIENTED RESTING ON BED NO SIGNS OF ANY DISTRESS NOTED IV PATENT FAMILY AT BED SIDE BED LOW AND LOCKED CALL LIGHT IN REACH
[2018-09-22] MEDS: METOPROLOL SUCCINATE 50 MG TAB XL PO SCH ×2 (09:00→16:43)
--- NOTE | 2018-09-22 13:00 | NUR ---
A/C TO DR DIAS PT IS NOT CLINICALLY FIT FOR DISCHARGE
[2018-09-22] MEDS: NICOTINE 21 MG/EA PATCH TOP SCH (16:17)
--- NOTE | 2018-09-22 16:30 | NUR ---
DR PÉREZ IS NOT OK TO DISCHARGE THE PT ON TOMORROW HE NEED TO WATCH THE PT FOR DIALYSIS AND ALSO PT CANNOT GO HOME WITH TEMPORARY DIALYSIS CATHETER
[2018-09-22] MEDS ORDERED: BUMETANIDE INJ 0.25MG/ML 4ML VIAL IV ONE (17:00)
[2018-09-22] MEDS ORDERED: POTASSIUM CHLORIDE 20MEQ/100ML 200 ML IV ONE (17:00)
--- NOTE | 2018-09-22 17:30 | NUR ---
PT C/O BURNING OF IV SITE DUE TO POTASSIUM INFUSION PT REUSED TRANSFUSION , STOPPED TRANSFUSION AND PAGED DR PÉREZ TO NOTIFY THAT
--- NOTE | 2018-09-22 18:26 | Progress Note ---
DATE: SUBJECTIVE: The patient is mildly confused, atrial fibrillation overnight. Chest pain and shortness of breath improved. OBJECTIVE: VITAL SIGNS: Temperature is 97.8, heart rate is currently 90, respirations are 18, blood pressure is 120/88, and oxygen saturation 95% on room air. GENERAL: He is a chronically ill-appearing male, lying comfortably in bed. CARDIOVASCULAR: He is irregularly irregular, tachycardic at times. LUNGS: Diminished breath sounds at bases. ABDOMEN: Soft, nontender, nondistended. EXTREMITIES: Trace edema. CARDIOVASCULAR MEDICATIONS: Reviewed. LABORATORY DATA: Reviewed. Potassium 2.9, creatinine is 2.15, bilirubin is 2.8. AST is 227, ALT is 818. IMPRESSION: 1. Dwscw-ze-celowha biventricular systolic congestive heart failure. 2. Liver cirrhosis. 3. Polysubstance abuse. 4. Sqdiu-wg-fhuciqd kidney disease, requiring hemodialysis. 5. Rhabdomyolysis. 6. Acute liver injury. 7. Hypokalemia. 8. Atrial fibrillation. RECOMMENDATIONS: Continue Toprol-XL for a heart rate reduction. We will avoid any FAWAD inhibitors or ARBs at this point in time given acute kidney injury requiring hemodialysis. Replace potassium to keep level greater than 4. If he becomes tachycardic, can give a dose of digoxin, but must ensure adequate potassium replacement. We will start him on anticoagulation for his atrial fibrillation, given his severe comorbidities. Ramon Delgado DO BM/MODL /[id number]
--- NOTE | 2018-09-22 18:35 | NUR ---
DR YANCI MAI RETURNED CALL GOT THE ORDER TO DC IV POTASSIUM AND START PO POTASSIUM
--- NOTE | 2018-09-22 18:53 | NUR ---
PT RESTING ON BED BED SIDE REPORT GIVEN TO ONCOMING NURSE
--- NOTE | 2018-09-22 20:53 | NUR ---
Spoke with Dr. Delgado regarding AFIB RVR. Orders received.
[2018-09-22] MEDS ORDERED: METOPROLOL TARTRATE INJ 1 MG/ML VIAL IV ONE (21:00)
--- NOTE | 2018-09-22 21:43 | NUR ---
Spoke with Dr. Delagdo regarding potassium level. Orders received.
[2018-09-22] MEDS ORDERED: DIGOXIN INJ 0.25 MG/ML 2 ML AMP IV ONE (22:00)
[2018-09-23] VITALS (7 sets, daily range): BP systolic 93–139; BP diastolic 67–90
[2018-09-23] MEDS: PIPERACILLIN/TAZO 2.25 GM 50 ML IV SCH ×3 (05:05→21:11)
[2018-09-23 06:37] LABS: ALBUMIN 2.8 g/dL (3.5-5.0); ANION GAP 15.5 mmol/L (8-16); CALCIUM 8.5 mg/dL (8.4-10.2); CREATININE, SERUM 1.98 mg/dL (0.72-1.25); POTASSIUM 3.5 mmol/L (3.5-5.1)
--- NOTE | 2018-09-23 07:05 | NUR ---
RCD PT AT BED PT IS ALERT AND ORIENTED RESTING ON BED NO SIGNS OF ANY DISTRESS NOTED IV PATENT BED LOW AND LOCKED CALL LIGHT IN REACH
[2018-09-23] MEDS ORDERED: BUMETANIDE 1 MG TAB PO SCH (09:00)
[2018-09-23] MEDS: LACTULOSE SYRUP 20 GM/30 ML UDC PO SCH ×3 (09:00→21:00)
[2018-09-23] MEDS: NICOTINE 21 MG/EA PATCH TOP SCH (09:00)
[2018-09-23] MEDS: METOPROLOL SUCCINATE 50 MG TAB XL PO SCH ×2 (09:00→16:44)
[2018-09-23] MEDS ORDERED: POTASSIUM CHLORIDE 20 MEQ TAB CR PO NR (10:00)
--- NOTE | 2018-09-23 10:27 | NUR ---
PT HAVE A FIB WITH HR [address] CABALLERO TO NOTIFY THAT
--- NOTE | 2018-09-23 10:35 | NUR ---
DR ROLLINS RETURNED CALL AND GOT NEW ORDERS
[2018-09-23] MEDS ORDERED: DIGOXIN INJ 0.25 MG/ML 2 ML AMP IV NR (10:45)
--- NOTE | 2018-09-23 10:55 | NUR ---
PT RESTING ON BED HR 98/MT
--- NOTE | 2018-09-23 16:21 | Progress Note ---
DATE: Cardiology Progress Note SUBJECTIVE: The patient is very agitated, irritated. No shortness of breath or chest pain. OBJECTIVE: VITAL SIGNS: Temperature is 96.7, heart rate is 96, blood pressure is 105/90, oxygen saturation 100% on room air, and respirations are 22. GENERAL: He is a well-appearing man. CARDIOVASCULAR: Irregularly irregular, tachycardic. LUNGS: Diminished breath sounds at the bases. ABDOMEN: Soft, nontender, and nondistended. EXTREMITIES: Trace edema. CARDIOVASCULAR MEDICATIONS: Reviewed. LABORATORY DATA: Reviewed. Potassium 3.5, creatinine is 1.98, AST 131, ALT is 590. Telemetry monitoring revealed atrial fibrillation with episodes of tachycardia. IMPRESSION: 1. Bjdec-tk-rvtphkd biventricular systolic heart failure. 2. Liver cirrhosis. 3. Polysubstance abuse. 4. Rdafl-my-ilgbhcu kidney disease. 5. Rhabdomyolysis. 6. Acute liver injury. 7. Hypokalemia. 8. Atrial fibrillation. RECOMMENDATIONS: Continue Toprol-XL for rate reduction. Avoid FAWAD inhibitors or ARBs at this point in time. Replace potassium to keep level greater than 4. Digoxin p.o. has been started. Ensure adequate potassium replacement. Start anticoagulation for his atrial fibrillation. The patient has poor insight into his medical condition. DO JOSE ARMANDO Rose/MODL /[id number]
[2018-09-23] MEDS: APIXABAN 5 MG TABLET PO SCH (16:44)
--- NOTE | 2018-09-23 17:05 | NUR ---
AC TO TELEY TECH PTS HR 140 /MT PAGED DR ROLLINS TO NOTIFY THAT
--- NOTE | 2018-09-23 17:10 | NUR ---
CHECHED HR 109 /MT PT RESTING ON BED
--- NOTE | 2018-09-23 18:52 | NUR ---
PT RESTING ON BED BED SIDE REPORT GIVEN TO ONCOMING NURSE
[2018-09-23] MEDS ORDERED: TRAZODONE HCL 50 MG TAB PO SCH (21:00)
[2018-09-24 00:20] VITALS: BP 102/84
[2018-09-24 04:15] VITALS: BP 101/65
[2018-09-24 05:56] LABS: INR 1.19; PROTHROMBIN TIME 15.7 seconds (11.9-14.5)
[2018-09-24 05:57] LABS: PARTIAL THROMBOPLASTIN TIME 32.3 seconds (23.8-35.5)
[2018-09-24 06:04] LABS: ANION GAP 17.6 mmol/L (8-16); CALCIUM 8.8 mg/dL (8.4-10.2); CREATININE, SERUM 1.95 mg/dL (0.72-1.25); POTASSIUM 3.6 mmol/L (3.5-5.1)
[2018-09-24] MEDS: PIPERACILLIN/TAZO 2.25 GM 50 ML IV SCH (06:11)
[2018-09-24 07:49] VITALS: BP 109/83
[2018-09-24 07:57] VITALS: BP 109/83
[2018-09-24] MEDS: NICOTINE 21 MG/EA PATCH TOP SCH (09:00)
[2018-09-24] MEDS ORDERED: DIGOXIN 0.125 MG TAB PO SCH (09:00)
[2018-09-24] MEDS: APIXABAN 5 MG TABLET PO SCH (09:00)
[2018-09-24] MEDS: LACTULOSE SYRUP 20 GM/30 ML UDC PO SCH (09:00)
[2018-09-24] MEDS: METOPROLOL SUCCINATE 50 MG TAB XL PO SCH (09:00)
[2018-09-24] MEDS ORDERED: BUMETANIDE 1 MG TAB PO SCH (09:00)
--- NOTE | 2018-09-24 10:00 | NUR ---
TEMPORARY DIALYSIS CATHETER DC BY THE CHARGE NURSE
[2018-09-24] MEDS ORDERED: LOPRESSOR25 MG PO (10:13)
[2018-09-24] MEDS ORDERED: ELIQUIS PO (10:13)
[2018-09-24] MEDS ORDERED: DIGOXIN125 MCG PO (10:14)
[2018-09-24] MEDS ORDERED: TRAZODONE HCL50 MG PO (10:14)
--- NOTE | 2018-09-24 10:35 | NUR ---
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
[2018-09-24] MEDS ORDERED: MORPHINE SULFATE 2 MG/ML SYR 1ML IV PRN (11:15)
--- NOTE | 2018-09-24 11:41 | NUR ---
NO SIGNS OF BLEEDING ON THE CATHETER SITE PT WENT HOME IN SAFE CONDITION WITH HIS MOTHER
--- NOTE | 2018-09-24 11:43 | Discharge Summary ---
CONSULTANTS: 1. Jaya Prince M.D. 2. Severino Mckinley M.D. 3. London Ortiz M.D. 4. Javid Langley M.D. FINAL DIAGNOSES: 1. Acute kidney injury secondary to acute tubular necrosis, status post dialysis short-term. Right upper chest temporary catheter removal. 2. Polysubstance abuse, recurrent. 3. Sidtz-hn-avhhazo dilated cardiomyopathy associated with systolic dysfunction and congestive heart failure. 4. Liver failure secondary to chronic congestive heart failure with liver cirrhosis, noncompliant to lactulose. 5. Episodic hypotension, resolved. 6. Basilar pneumonia, resolved. 7. Anxiety disorder, major depression. SUMMARY: The patient is 48 years old male recently discharged from the hospital, came back in again at this time with acute kidney injury secondary to ATN. The patient has compliance issue. The patient has urine drug screen done, positive for opiates, positive for methadone, positive for amphetamine, polysubstance abuse and recurrent. His urinalysis shown mild urinary tract infection. His CT of the chest that was done on admission showed ground-glass opacity likely represent atypical pneumonia infection. He also has a small amount of ascites, diffuse hepatic steatosis on the CT scan. Repeated CT scan of the chest on the showed interval development of 3.7 x 3.0 area of focal consolidation along the posterior dependent left lower lobe consistent with aspiration pneumonia, was consistent with the patient's treatment on IV Zosyn. The patient is doing much better now with respect to his overall condition. Prior to that, the patient did receive dialysis a few days ago for his ATN, acute kidney injury with early hepatorenal syndrome. The patient's creatinine now stabilized at 1.9. He no longer need dialysis. The patient will have his temporary dialysis catheter removed. His sodium is 134, potassium 3.5, chloride 91, bicarb is 31, BUN is 34. WBCs are 9.2, hemoglobin 13.1, hematocrit 39.4, and platelets are 139. The patient also has paroxysmal atrial fibrillation. He is now on Eliquis and along with that, digoxin and increase on beta-agus for heart rate control. Overall, the patient is stable. He had a LifeVest in place. The patient if compliant, may be a candidate for defibrillator and also a candidate for heart transplant in the future, however, because of his drug abuse and his compliance issue, he is not a candidate for neither at this time. Discussed with the patient on followup with his mortgage broker and his family physician and that the patient need to continue to take his medication along with his LifeVest as well. Again, discussed with the patient many, many times. Also, discussed with the patient's mother at length. I even wrote a paper explaining specifically the patient's condition, so that way the patient's mother completely understand regarding her son's medical condition. There is some dynamic respect to the patient and his mother relationship, where the mother want the son to be compliant not only to medication, but also to his living situation where he has a storage and when he felt better he go back to his storage and stay there and most likely do things that he was supposed to per mother. The patient discharged home today. He will continue with his Bumex 2 mg daily. His lactulose twice a day. New prescription of Eliquis 5 mg twice a day, digoxin 0.125 mg daily, trazodone 50 mg at bedtime for sleep and also for depression and Lopressor 50 mg twice a day for heart rate control and also for his heart failure. The patient will continue with Bumex 2 mg daily. Discussed with the patient at length regarding blood work. Follow up with the family physician for blood work, and also his mortgage broker to monitor his cardiac problem. The patient is otherwise stable, discharged home today. MD MAYE Lal/NITHIN /[id number]
== END 2018-09-24 11:41 | disposition home or self-care (01) | DRG 682 ==
LOC: ER 17:58 → ERHOLD 20:39 → IMCU 09-16 01:05 → ICU 09-16 09:39 → MED/SURG2 09-21 10:37
PROVIDERS: ADMIT Internal Medicine; ATTEND Internal Medicine
PROC: 5A1D70Z Performance of Urinary Filtration, Intermittent, Less than 6 Hours Per Day (ICD-10-PCS; principal; 2018-09-17)
PROC: 02HV33Z Insertion of Infusion Device into Superior Vena Cava, Percutaneous Approach (ICD-10-PCS; principal; 2018-09-17)
PROC: 5A1D70Z Performance of Urinary Filtration, Intermittent, Less than 6 Hours Per Day (ICD-10-PCS; 2018-09-18)
PROC: 5A1D70Z Performance of Urinary Filtration, Intermittent, Less than 6 Hours Per Day (ICD-10-PCS; 2018-09-20)
DX: N17.0 Acute kidney failure with tubular necrosis (principal); I50.23 Acute on chronic systolic (congestive) heart failure; J18.9 Pneumonia, unspecified organism; M62.82 Rhabdomyolysis; N39.0 Urinary tract infection, site not specified; I42.8 Other cardiomyopathies; E87.2 Acidosis; I13.2 Hypertensive heart and chronic kidney disease with heart failure and with stage 5 chronic kidney disease, or end stage renal disease; E86.0 Dehydration; E87.5 Hyperkalemia; K74.60 Unspecified cirrhosis of liver; R41.82 Altered mental status, unspecified; F41.9 Anxiety disorder, unspecified; I95.9 Hypotension, unspecified; N18.6 End stage renal disease
CPT/HCPCS: 36415; 36556; 71045; 71250; 74176; 74470; 76705; 76770; 76937; 80048; 80053; 80307; 80320; 80329; 81001; 82140; 82550; 82553; 82570; 82693; 82948; 83690; 83735; 83880; 84100; 84132; 84300; 84484; 85025; 85610; 85730; 86704; 87086; 87186; 87340; 90962; 93005; 94640; 99284; C1769; J0500; J0610; J1160; J1644; J1817; J1940; J2270; J2360; J2405; J2543; J3480; J7030; J7050; J7070; J7799

== ENCOUNTER 2018-10-04 22:17 | Inpatient (IN) | payer OTHER ==
[~2018-10-04] VITALS: Ht 185.4 cm; Wt 83.9 kg
[~2018-10-04 22:17] MED LIST changes: +DIGOXIN125 MCG PO; +ELIQUIS PO; +LOPRESSOR25 MG PO; +TRAZODONE HCL50 MG PO
--- OUTSIDE RECORDS SUMMARY | 2018-10-04 22:19 | XMS REPORT | Clinical Summary ---
Author Author [facility] Organization [place] [facility] Address Unknown Phone Unavailable Care Team Providers Care Senior Front End Engineer Name Role Phone Asked, No Pcp PCP [...] INFLUENZA VACCINE 09/28/2018 Results Not on fileafter 10/03/2017 Insurance Type Payer Benefit Subscriber ID Effective Phone Address Plan / Dates Group Medicaid MEDICAID MEDICAID xxxxxxxxx 2015-P resent Medicaid PENDING MEDICAID PENDING xxxxxxxxx 2016-P [address] DISABILITY resent [id number] MEDICAID [place], [place] COVERAGE [id number] Advance Directives Patient has advance care planning documents on file. For more information, mihir pineda contact: [facility] [address] [place] [id number]
--- OUTSIDE RECORDS SUMMARY | 2018-10-04 22:19 | XMS REPORT | Clinical Summary ---
Author Author [facility] Organization [facility] Address Unknown Phone Unavailable Care Team Providers Care Senior Analyst Market Intelligence Name Role Phone PCP Unavailable Allergies No Known Allergies Medications End Date Status Medication Sig Dispensed Refills Start Date Active apixaban (ELIQUIS) 5 mg Take 1 tablet 60 tablet 3 tabletIndications: by mouth 2 9 Congestive heart failure, times daily. unspecified HF chronicity, unspecified heart failure type Active digoxin (LANOXIN) 125 mcg Take 1 tablet 90 tablet 1 tabletIndications: by mouth 9 Congestive heart failure, daily. unspecified HF chronicity, unspecified heart failure type Active traZODone (DESYREL) 50 mg Take 1 tablet 90 tablet 0 tabletIndications: by mouth at 9 Insomnia, unspecified bedtime type nightly. Active bumetanide (BUMEX) 2 mg Take 1 tablet 90 tablet 1 tabletIndications: by mouth 9 Congestive heart failure, daily. unspecified HF chronicity, unspecified heart failure type Active spironolactone Take 1 tablet 90 tablet 1 (ALDACTONE) 25 mg by mouth 9 tabletIndications: daily. Congestive heart failure, unspecified HF chronicity, unspecified heart failure type Active metoprolol tartrate Take 1 tablet 180 tablet 1 (LOPRESSOR) 100 mg by mouth 2 9 tabletIndications: times daily. Congestive heart failure, unspecified HF chronicity, unspecified heart failure type Active lactulose (CONSTULOSE) 10 Take 30 mL by 946 mL 6 gram/15 mL oral mouth 3 times 9 solutionIndications: daily as Constipation, unspecified needed constipation type (constipation ). 09/25/2018 Discontinued spironolactone Take 1 tablet 90 tablet 0 (ALDACTONE) 25 mg by mouth 6 tabletIndications: daily. Congestive heart failure, unspecified congestive heart failure chronicity, unspecified congestive heart failure type 09/25/2018 Discontinued carvedilol (COREG) 12.5 Take 1 tablet 180 tablet 0 mg tabletIndications: by mouth 2 6 Congestive heart failure, times daily unspecified congestive (with meals). heart failure chronicity, unspecified congestive heart failure type, Essential hypertension, benign 09/25/2018 Discontinued furosemide (LASIX) 40 mg Take 1 tablet 90 tablet 0 tabletIndications: by mouth 6 Congestive heart failure, daily. unspecified congestive heart failure chronicity, unspecified congestive heart failure type 09/25/2018 Discontinued digoxin (LANOXIN) 250 mcg Take 1 tablet 90 tablet 0 tabletIndications: by mouth 6 Congestive heart failure, daily. unspecified congestive heart failure chronicity, unspecified congestive heart failure type 09/25/2018 Discontinued losartan (COZAAR) 50 mg Take 1 tablet 90 tablet 0 tabletIndications: by mouth 6 Congestive heart failure, daily. unspecified congestive heart failure chronicity, unspecified congestive heart failure type, Essential hypertension, benign 09/25/2018 Discontinued cyclobenzaprine Take 1 tablet 90 tablet 0 (FLEXERIL) 10 mg by mouth 6 tabletIndications: Neck nightly at muscle spasm bedtime as needed for Muscle Spasms. 09/25/2018 Discontinued apixaban (ELIQUIS) 5 mg Take 1 tablet 60 tablet 3 tabletIndications: by mouth 2 9 Congestive heart failure, times daily. unspecified HF chronicity, unspecified heart failure type 09/25/2018 Discontinued digoxin (LANOXIN) 125 mcg Take 1 tablet 90 tablet 1 tabletIndications: by mouth 9 Congestive heart failure, daily. unspecified HF chronicity, unspecified heart failure type 09/25/2018 Discontinued traZODone (DESYREL) 50 mg Take 1 tablet 90 tablet 0 tabletIndications: by mouth at 9 Insomnia, unspecified bedtime type nightly. 09/25/2018 Discontinued metoprolol tartrate Take 1 tablet 180 tablet 1 (LOPRESSOR) 50 mg by mouth 2 9 tabletIndications: times daily. Congestive heart failure, unspecified HF chronicity, unspecified heart failure type 09/25/2018 Discontinued bumetanide (BUMEX) 2 mg Take 0.5 90 tablet 1 tabletIndications: tablets by 9 Congestive heart failure, mouth daily. unspecified HF chronicity, unspecified heart failure type 09/25/2018 Discontinued spironolactone Take 1 tablet 90 tablet 1 (ALDACTONE) 25 mg by mouth 9 tabletIndications: daily. Congestive heart failure, unspecified HF chronicity, unspecified heart failure type 09/25/2018 Discontinued metoprolol tartrate Take 1 tablet 180 tablet 1 (LOPRESSOR) 100 mg by mouth 2 9 tabletIndications: times daily. Congestive heart failure, unspecified HF chronicity, unspecified heart failure type 09/28/2018 Discontinued polyethylene glycol Mix 17 grams 255 g 0 (GLYCOLAX) 17 gram/dose into 4 to 8 9 oral powderIndications: ounces of Constipation, unspecified water, juice, constipation type soda, tea or coffee and drink as directed, one time a day. Active Problems Problem Noted Date Atrial fibrillation 09/28/2018 History of colonoscopy 09/28/2018 Constipation 09/28/2018 Elevated TSH 09/28/2018 Elevated LFTs 09/28/2018 Anemia 09/28/2018 On continuous oral anticoagulation- apixaban 09/28/2018 CKD (chronic kidney disease) stage 3, GFR 30-59 ml/min 09/28/2018 Congestive heart failure- has external defibrillator ; EF per hx 20 % 09/04/2015 Essential hypertension, benign 09/04/2015 Encounters Care Team Description Date Type Specialty Ellen Garsia MD Chronic congestive heart failure, unspecified heart failure type (Primary Dx); Atrial fibrillation, unspecified type; CKD (chronic kidney disease) stage 3, GFR 30-59 ml/min; Essential hypertension, benign; History of colonoscopy; Constipation, unspecified constipation type; Elevated TSH; Elevated LFTs; Anemia, unspecified type; On continuous oral anticoagulation 09/28/2018 Office Visit Family Practice 09/28/2018 Travel Ellen Garsia MD Elevated TSH (Primary Dx) 09/26/2018 Orders Only Family Practice Michelle Person 09/26/2018 Nutrition Nutrition Ellen Garsia MD 09/25/2018 Ancillary Radiology Procedure Ellen Garsia MD Congestive heart failure, unspecified HF chronicity, unspecified heart failure type (Primary Dx); Atrial fibrillation, unspecified type; Insomnia, unspecified type 09/25/2018 Office Visit Family Practice Ellen Garsia MD Congestive heart failure, unspecified HF chronicity, unspecified heart failure type 09/25/2018 Orders Only Family Practice 09/25/2018 Travel after 10/03/2017 Family History Medical History Relation Name Comments Hypertension Mother Relation Name Status Comments Brother Alive Brother Alive Father Mother Alive Social History Date Tobacco Use Types Packs/Day Years Used Former Smoker Cigarettes 0.5 Smokeless Tobacco: Never Used Comments: quit smoking - used patch -early august 2018 Drinks/Week oz/Week Comments Alcohol Use heavy drinking in past - 2014- approx ; Yes Food Insecurity Answer Date Recorded Within the past 12 months, you worried that your Often true 09/25/2018 food would run out before you got money to buy more. Within the past 12 months, the food you bought Often true 09/25/2018 just didn't last and you didn't have money to get more. Sex Assigned at Date Recorded Not on file Industry Job Start Date Occupation Not on file Not on file Not on file Travel End Travel History Travel Start No recent travel history available. Last Filed Vital Signs Reading Time Taken Comments Vital Sign 120/59 09/28/2018 3:23 PM CDT Blood Pressure 58 09/28/2018 3:23 PM CDT CHILDREN[employer]S [employer]IST[employer] DIRECTOR Francine informed pt's [id number] Pulse 36.4 C (97.5 F) 09/28/2018 3:23 PM CDT Temperature 18 09/28/2018 3:23 PM CDT Respiratory Rate - - Oxygen Saturation - - Inhaled Oxygen Concentration 78.8 kg (173 lb 12.8 oz) 09/28/2018 3:23 PM CDT Weight 185.4 cm (6' 1") 09/28/2018 3:23 PM CDT Height 22.93 09/28/2018 3:23 PM CDT Body Mass Index Plan of Treatment Care Team Description Date Type Specialty Ellen Garsia MD [address] [place] [address] 10/06/2018 Office Visit Nutrition Ellen Garsia MD [address] [place] [phone] [address] Rosa, [place] [address] [place] [address] [phone] 10/25/2018 Office Visit Clinical Pharmacy Ellen Garsia MD [address] [place] [address] 12/19/2018 Appointment Cardiology Keyur Pagan MD [address] [place] [address] new-CHF 12/27/2018 Office Visit Cardiology Health Maintenance Due Date Last Done Comments IMM Influenza Seasonal 11/28/2018 Oct to April (>/=19 yrs) Procedures Comments Procedure Name Priority Date/Time Associated Diagnosis B-TYPE NATRIURETIC Add-on 09/25/2018 Congestive heart failure, PEPTIDE (BNP) 4:57 PM CDT unspecified HF chronicity, unspecified heart failure type XRAY CHEST 2 VIEWS STAT 09/25/2018 Congestive heart failure, 4:49 PM CDT unspecified HF chronicity, unspecified heart failure type BMP POC Routine 09/25/2018 4:46 PM CDT MAGNESIUM Routine 09/25/2018 Congestive heart failure, 4:37 PM CDT unspecified HF chronicity, unspecified heart failure type LIVER PROFILE Routine 09/25/2018 Congestive heart failure, 4:37 PM CDT unspecified HF chronicity, unspecified heart failure type THYROID STIMULATING Routine 09/25/2018 Congestive heart failure, HORMONE (TSH) 4:37 PM CDT unspecified HF chronicity, unspecified heart failure type LIPID PROFILE Routine 09/25/2018 Congestive heart failure, 4:37 PM CDT unspecified HF chronicity, unspecified heart failure type HGB/HCT STAT 09/25/2018 Congestive heart failure, 4:37 PM CDT unspecified HF chronicity, unspecified heart failure type 12 LEAD EKG DAVID 09/25/2018 Congestive heart failure, 4:28 PM CDT unspecified HF chronicity, unspecified heart failure type after 10/03/2017 Results * B-TYPE NATRIURETIC PEPTIDE (BNP) (09/25/2018 4:57 PM CDT) B Natriuretic 1,390 (H) <=100 pg/mL [facility] (BNP) [facility] Specimen Blood Performing Organization Address City/State/Zipcode Phone Number [facility] [address] [place] [address] * XRAY CHEST 2 VIEWS (09/25/2018 4:49 PM CDT) Specimen Impressions Performed At IMPRESSION: [facility] Stable cardiomegaly. Dictated By: Mauricio Dallas MD, 09/26/2018 11:39 AM I have reviewed the study and agree with the findings in this report. Signed By: Jose Montez MD, 09/26/2018 3:20 PM Narrative Performed At EXAMINATION:XRAY CHEST 2 VIEWS [facility] INDICATION: chf COMPARISON:Chest radiograph 03/20/2013 FINDINGS:PA and lateral views TUBES and LINES:None. LUNGS:Lungs are well inflated.Lungs are clear. There is no evidence of pneumonia or pulmonary edema. PLEURA:No pleural effusion or pneumothorax. HEART AND MEDIASTINUM:The cardiomediastinal silhouette is enlarged. BONES AND SOFT TISSUES:No acute osseous lesion.Soft tissues are unremarkable. UPPER ABDOMEN: No free air under the diaphragm. Procedure Note Interface, Rad/Mammog In - 09/26/2018 3:25 PM CDT EXAMINATION: XRAY CHEST 2 VIEWS INDICATION: chf COMPARISON: Chest radiograph 03/20/2013 FINDINGS: PA and lateral views TUBES and LINES: None. LUNGS: Lungs are well inflated. Lungs are clear. There is no evidence of pneumonia or pulmonary edema. PLEURA: No pleural effusion or pneumothorax. HEART AND MEDIASTINUM: The cardiomediastinal silhouette is enlarged. BONES AND SOFT TISSUES: No acute osseous lesion. Soft tissues are unremarkable. UPPER ABDOMEN: No free air under the diaphragm. IMPRESSION IMPRESSION: Stable cardiomegaly. Dictated By: Maurciio Dallas MD, 09/26/2018 11:39 AM I have reviewed the study and agree with the findings in this report. Signed By: Jose Montez MD, 09/26/2018 3:20 PM Performing Organization Address [facility] Phone Number SMS * BMP POC (09/25/2018 4:46 PM CDT) Sodium POC 136 136 - 145 mmol/L [facility] Potassium POC 3.6 3.5 - 5.1 mmol/L [facility] Chloride POC 89 (L) 98 - 107 mmol/L [facility] TCO2 POC 35 (H) 21 - 32 mmol/L [facility] Urea Nitrogen 33 (H) 7 - 18 mg/dL [facility] POC Creatinine POC 1.8 (H) 0.6 - 1.3 mg/dL [facility] Glucose POC 86 74 - 106 mg/dL [facility] Ionized Calcium 1.10 (L) 1.15 - 1.29 mmol/L [facility] POC GFR, Estimated, 51 (L) >=90 mL/min/1.73 m2 [facility] -Nikkie n GFR, Estimated 44 (L) >=90 mL/min/1.73 m2 [facility] Specimen Blood, venous Performing Organization Address [facility] Phone Number [facility] * THYROID STIMULATING HORMONE (TSH) (09/25/2018 4:37 PM CDT) TSH 8.19 (H) 0.57 - 3.74 uIU/mL [facility] Specimen Blood Performing Organization Address [facility] Phone Number [facility] [address] [place] [address] * MAGNESIUM (09/25/2018 4:37 PM CDT) Magnesium 1.9 1.9 - 2.7 mg/dL [facility] Specimen Blood Performing Organization Address [facility] Phone Number [facility] [address] [place] [address] * LIVER PROFILE (09/25/2018 4:37 PM CDT) Total Protein 6.1 6.0 - 8.3 g/dL [facility] Total Bilirubin 2.6 (H) 0.2 - 1.2 mg/dL [facility] Alkaline 88 34 - 104 U/L [facility] Phosphatase LABORATORY AST 54 (H) 13 - 39 U/L [facility] Direct 1.1 (H) 0.0 - 0.2 mg/dL [facility] Bilirubin LABORATORY ALT 296 (H) 7 - 52 U/L [facility] Albumin 3.7 (L) 4.2 - 5.5 g/dL [facility] Specimen Blood Performing Organization Address [facility] Phone Number [facility] [address] [place] [address] * LIPID PROFILE (09/25/2018 4:37 PM CDT) Cholesterol 113.0 <=200.0 mg/dL [facility] Comment: LABORATORY Desirable: < 200.0 mg/dL Borderline: 200 - 240 mg/dL High Risk: > 240 mg/dL Triglyceride 71 <150 mg/dL [facility] Comment: LABORATORY Normal: < 150.0 mg/dL Borderline: 150-199 mg/dL High: 200-499 mg/dL Very High: >=500 mg/dL HDL 29.0 See Reference Range [facility] Comment: Narrative. mg/dL LABORATORY Increased CHD Risk: < 40.0 mg/dL Decreased CHD Risk: > 60 mg/dL LDL 70 <100 mg/dL [facility] Comment: LABORATORY Optimal: < 100.0 mg/dL Near Optimal: 120-129 mg/dL Borderline: 130-159 mg/dL High: 160-189 mg/dL Very High: >=190 mg/dL Specimen Blood Narrative Performed At Patient is not fasting. For a triglyceride result greater than 440 mg/dL, [facility] consider re-testing when the patient is in a fasting state. Performing Organization Address [facility] Phone Number [facility] [address] [place] [address] * HGB/HCT (09/25/2018 4:37 PM CDT) Hemoglobin 13.2 (L) 14.0 - 18.0 g/dL [facility] Hematocrit 41.3 40.0 - 54.0 % [facility] Specimen Blood Performing Organization Address [facility] Phone Number [facility] * 12 LEAD EKG (09/25/2018 4:28 PM CDT) 12 LEAD EKG FOR [facility] Test Date:2018-09-25 Pat Name: HEIDY MONGE Department: Room: Gender: M Interior Designer: :[birth year] Requested By: ELLEN GARSIA Order Number: [id number] Reading MD: Mary Jane Tucker Measurements Intervals [place] Rate: 124 P: [place]: 0 QRS: -33 QRSD: 118 T: 37 QT: 319 QTc:459 Interpretive Statements ATRIAL FIBRILLATION WITH RAPID VENTRICULAR RESPONSE LEFT AXIS DEVIATION MODERATE INTRAVENTRICULAR CONDUCTION DELAY NONSPECIFIC ST & T-WAVE ABNORMALITY Electronically Signed On 09-25-2018 16:58:23 CDT by Mary Jane Tucker Specimen Performing Organization Address City/State/Zipcode Phone Number [facility] after 10/03/2017 Insurance Type Payer Benefit Subscriber ID Effective Phone Address Plan / Dates Group [place] MEDICAID [id number] SSI xxxxxxxxx 2018-P [phone] [address] resent [id number] [place] [address]
--- OUTSIDE RECORDS SUMMARY | 2018-10-04 22:19 | XMS REPORT | Clinical Summary ---
Author Author TRUNG [facility] Address Unknown Phone Unavailable Care Team Providers Care Gun Mechanic Name Role Phone Sharpless PCP Allergies No [...] Not on file Results Not on fileafter 10/03/2017 Advance Directives For more information, please contact: [facility] [address] [place] [address] Date Inactivated Comments Code Status Date Activated 04/14/2017 12:58 PM Full Code 04/10/2017 4:47 AM This code status was determined by: Patient
[2018-10-04] MEDS ORDERED: ASPIRIN 81 MG CHEW TAB PO ONE (22:30)
--- NOTE | 2018-10-04 22:57 | Diagnostic Imaging Report ---
EXAMINATION: CHEST SINGLE (PORTABLE) INDICATION: Chest pain. COMPARISON: 09/17/2018. FINDINGS: AP view TUBES and LINES: None. LUNGS: Lungs are well inflated. Lungs are clear. There is mild prominence of the central pulmonary vasculature, consistent with pulmonary venous congestion. PLEURA: No pleural effusion or pneumothorax. HEART AND MEDIASTINUM: Cardiac size is moderately to markedly enlarged. BONES AND SOFT TISSUES: No acute osseous lesion. Soft tissues are unremarkable. UPPER ABDOMEN: No free air under the diaphragm. IMPRESSION: Mild bilateral pulmonary venous congestion Signed by: Dr. eLana Hancock M.D. on 10/04/2018 10:54 PM
[2018-10-04] MEDS ORDERED: DILTIAZEM HCL 5 MG/ML 5 ML VIAL IV STA ×2 (23:25→23:44)
[2018-10-04] MEDS ORDERED: DILTIAZEM HCL VIAL 5 ML ONE (23:27)
[2018-10-05] VITALS (21 sets, daily range): BP systolic 85–126; BP diastolic 43–88
[2018-10-05 00:13] LABS: BASOPHILS # (AUTO) 0.1 (0.0-0.1); BASOPHILS % 0.5 % (0.0-1.0); EOSINOPHILS % 0.3 % (0.0-6.0); HEMATOCRIT 38.7 % (38.2-49.6); HEMOGLOBIN 12.5 g/dL (14.0-18.0); LYMPHOCYTES # (AUTO) 1.8 (1.0-3.2); LYMPHOCYTES % 18.3 % (18.0-39.1); MEAN CORPUSCULAR HEMOGLOBIN 30.6 pg (28-32); MEAN CORPUSCULAR HGB CONC 32.3 g/dL (31-35); MEAN CORPUSCULAR VOLUME 94.9 fL (81-99); MONOCYTES % 10.6 % (4.4-11.3); NEUTROPHILS # (AUTO) 6.9 (2.1-6.9); NEUTROPHILS % 69.9 % (38.7-80.0); PLATELET COUNT 247 x10e3/uL (140-360); RED BLOOD COUNT 4.08 x10e6/uL (4.3-5.7); RED CELL DISTRIBUTION WIDTH 17.1 % (11.7-14.4)
[2018-10-05 00:37] LABS: ALBUMIN 3.9 g/dL (3.5-5.0); ALBUMIN/GLOBULIN RATIO 1.1 (0.8-2.0); ANION GAP 25.9 mmol/L (8-16); CREATININE, SERUM 2.83 mg/dL (0.72-1.25); POTASSIUM 4.9 mmol/L (3.5-5.1)
[2018-10-05 00:39] LABS: CALCIUM 10.2 mg/dL (8.4-10.2)
[2018-10-05 00:45] LABS: CREATINE KINASE MB 6.4 ng/mL (0-5.0)
[2018-10-05] MEDS ORDERED: DIGOXIN INJ 0.25 MG/ML 2 ML AMP IV ONE (01:00)
[2018-10-05] MEDS ORDERED: DILTIAZEM HCL 125 ML IV STA (02:05)
[2018-10-05] MEDS ORDERED: ASPIRIN 81 MG CHEW TAB PO ONE (02:15)
[2018-10-05] MEDS ORDERED: SODIUM CHLORIDE 0.9% 100 ML ONE (02:21)
[2018-10-05] MEDS ORDERED: DILTIAZEM HCL IV 5MG/ML 25 ML VIAL ONE (02:21)
--- OUTSIDE RECORDS SUMMARY | 2018-10-05 02:43 | XMS REPORT | Clinical Summary ---
Author Author [facility] Organization [place] [facility] Address Unknown Phone Unavailable Care Team Providers Care Rice Farmer Name Role Phone Asked, No Pcp PCP [...] INFLUENZA VACCINE 09/28/2018 Results Not on fileafter 10/04/2017 Insurance Type Payer Benefit Subscriber ID Effective Phone Address Plan / Dates Group Medicaid MEDICAID MEDICAID xxxxxxxxx 2015-P resent Medicaid PENDING MEDICAID PENDING xxxxxxxxx 2016-P [address] DISABILITY resent [id number] MEDICAID [place], [place] COVERAGE [phone] Advance Directives Patient has advance care planning documents on file. For more information, mihir pineda contact: [facility] [address] [place] [phone]
--- OUTSIDE RECORDS SUMMARY | 2018-10-05 02:43 | XMS REPORT | Clinical Summary ---
Author Author TRUNG [facility] Address Unknown Phone Unavailable Care Team Providers Care Bleach Boiler Packer Name Role Phone Sharpless PCP Allergies No [...] 50 Take 1 tablet 90 tablet 0 MG 24 hr tablet (50 mg total) [...] Not on file Results Not on fileafter 10/04/2017 Advance Directives For more information, please contact: [facility] [address] [place] [address] Date Inactivated Comments Code Status Date Activated 04/14/2017 12:58 PM Full Code 04/10/2017 4:47 AM This code status was determined by: Patient
--- OUTSIDE RECORDS SUMMARY | 2018-10-05 02:43 | XMS REPORT | Clinical Summary ---
Author Author [facility] Organization [facility] Address Unknown Phone Unavailable Care Team Providers Care Cardiovascular Surgical Tech Name Role Phone PCP Unavailable Allergies No [...] Orders Only Family Practice 09/25/2018 Travel after 10/04/2017 Family History Medical History Relation Name Comments [...] Blood Pressure 58 09/28/2018 3:23 PM CDT MAPPING ANALYST Francine informed pt's [id number] Pulse 36.4 C (97.5 F) 09/28/2018 3:23 [...] Date Type Specialty Ellen Garsia MD [address] [place] [address] 10/06/2018 Office Visit Nutrition Ellen Garsia MD [address] [place] [id number] Chan[address] Rosa, [place] [address] [place] [address] [phone] 10/25/2018 Office Visit Clinical Pharmacy Ellen Garsia MD [address] [place] [id number] 12/19/2018 Appointment Cardiology Keyur Pagan MD [address] [place] [address] new-CHF 12/27/2018 Office Visit Cardiology [...] HF chronicity, unspecified heart failure type after 10/04/2017 Results * B-TYPE NATRIURETIC PEPTIDE (BNP) (09/25/2018 4:57 PM CDT) B Natriuretic 1,390 (H) <=100 pg/mL [facility] Peptide (BNP) [facility]AT[facility] Specimen Blood Performing Organization Address City/State/Zipcode Phone Number [facility] [address] [place] [address] * XRAY CHEST 2 VIEWS (09/25/2018 4:49 PM CDT) Specimen Impressions Performed At IMPRESSION: [facility] Stable cardiomegaly. Dictated By: Mauricio Dallas MD, 09/26/2018 11:39 AM I have reviewed the study and agree with the findings in this report. Signed By: Jose Montez MD, 09/26/2018 3:20 PM Narrative Performed At EXAMINATION:XRAY CHEST 2 VIEWS [facility] INDICATION: chf COMPARISON:Chest radiograph 03/20/2013 FINDINGS:PA [...] diaphragm. IMPRESSION IMPRESSION: Stable cardiomegaly. Dictated By: Mauricio Dallas MD, 09/26/2018 11:39 AM I have reviewed the study and agree with the findings in this report. Signed By: Jose Montez MD, 09/26/2018 3:20 PM Performing Organization Address [facility] Phone Number SMS * BMP POC (09/25/2018 [...] LAB Specimen Blood, venous Performing Organization Address [facility] Phone Number [facility] * THYROID STIMULATING HORMONE (TSH) (09/25/2018 4:37 PM CDT) TSH 8.19 (H) 0.57 - 3.74 uIU/mL [facility] Specimen Blood Performing Organization Address [facility] Phone Number [facility] [address] [place] [address] * MAGNESIUM (09/25/2018 4:37 PM CDT) Magnesium 1.9 1.9 - 2.7 mg/dL [facility] Specimen Blood Performing Organization Address [facility] Phone Number [facility] [address] [place] [address] * LIVER PROFILE (09/25/2018 4:37 PM CDT) Total Protein 6.1 6.0 - 8.3 g/dL [facility] Total Bilirubin 2.6 (H) 0.2 - 1.2 mg/dL [facility] Alkaline 88 34 - 104 U/L [facility] Phosphatase LABORATORY AST 54 (H) 13 - 39 U/L [facility] Direct 1.1 (H) 0.0 - 0.2 mg/dL [facility] Bilirubin LABORATORY ALT 296 (H) 7 - 52 U/L [facility] Albumin 3.7 (L) 4.2 - 5.5 g/dL [facility] Specimen Blood Performing Organization Address [facility] Phone Number [facility] [address] [place] [address] * LIPID PROFILE (09/25/2018 4:37 PM CDT) Cholesterol 113.0 <=200.0 mg/dL [facility] Comment: LABORATORY Desirable: < 200.0 mg/dL Borderline: 200 - 240 mg/dL High Risk: > 240 mg/dL Triglyceride 71 <150 mg/dL [facility] Comment: LABORATORY Normal: < 150.0 mg/dL Borderline: 150-199 mg/dL High: 200-499 mg/dL Very High: >=500 mg/dL HDL 29.0 See Reference Range [facility] Comment: Narrative. mg/dL LABORATORY Increased CHD Risk: < 40.0 mg/dL Decreased CHD Risk: > 60 mg/dL LDL 70 <100 mg/dL [facility] Comment: LABORATORY Optimal: < 100.0 mg/dL Near Optimal: 120-129 mg/dL Borderline: 130-159 mg/dL High: 160-189 mg/dL Very High: >=190 mg/dL Specimen Blood Narrative Performed At Patient is not fasting. For a triglyceride result greater than 440 mg/dL, [facility] consider re-testing when the patient is in a fasting state. Performing Organization Address [facility] Phone Number [facility] [address] [place] [address] * HGB/HCT (09/25/2018 4:37 PM CDT) Hemoglobin 13.2 (L) 14.0 - 18.0 g/dL [facility] Hematocrit 41.3 40.0 - 54.0 % [facility] Specimen Blood Performing Organization Address [facility] Phone Number [facility] * 12 LEAD EKG (09/25/2018 4:28 PM CDT) 12 LEAD EKG FOR [facility] Test Date:2018-09-25 Pat Name: HEIDY MONGE Department: Room: Gender: M Natural Resources Manager: :[birth year] Requested By: ELLEN GARSIA Order Number: [id number] Reading MD: Mary Jane Tucker Measurements Intervals [place] Rate: 124 P: NC: 0 QRS: -33 QRSD: 118 T: 37 QT: 319 QTc:459 Interpretive Statements ATRIAL FIBRILLATION WITH RAPID VENTRICULAR RESPONSE LEFT AXIS DEVIATION MODERATE INTRAVENTRICULAR CONDUCTION DELAY NONSPECIFIC ST & T-WAVE ABNORMALITY Electronically Signed On 09-25-2018 16:58:23 CDT by Mary Jane Tucker Specimen Performing Organization Address City/State/Zipcode Phone Number [facility] after 10/04/2017 Insurance Type Payer Benefit Subscriber ID Effective Phone Address Plan / Dates Group [place] MEDICAID [id number] SSI xxxxxxxxx 2018-P [phone] [id number] [place] [address]
[2018-10-05 04:34] LABS: BILIRUBIN,URINE NEGATIVE (NEGATIVE); CLARITY,URINE CLEAR (CLEAR); COLOR,URINE YELLOW (YELLOW); KETONES,URINE NEGATIVE (NEGATIVE); LEUKOCYTE ESTERASE ,URINE NEGATIVE (NEGATIVE); NITRITE,URINE NEGATIVE (NEGATIVE); PROTEIN,URINE DIPSTICK NEGATIVE (NEGATIVE); URINE UROBILINOGEN 0.2 mg/dL (0.2 - 1)
[2018-10-05 04:35] LABS: AMPHETAMINES SCREEN,URINE NEGATIVE (NEGATIVE); BENZODIAZEPINES SCREEN,URINE NEGATIVE (NEGATIVE); PHENCYCLIDINE SCREEN,URINE NEGATIVE (NEGATIVE)
[2018-10-05 04:41] LABS: BACTERIA,URINE MODERATE /HPF; RBC,URINE 0-5 /HPF (0-5)
[2018-10-05 04:42] LABS: EPITHELIAL CELLS,URINE FEW /LPF; MUCUS,URINE FEW (RARE); RENAL EPITHELIAL CELLS,URINE FEW; TRANSITIONAL EPI CELLS,URINE FEW
[2018-10-05] MEDS ORDERED: DILTIAZEM HCL 125 ML IV SCH ×2 (05:30→05:45)
--- NOTE | 2018-10-05 07:05 | NUR ---
ASSESSMENT: Spiritual concern Referred by RN. Pt's mom, Karla, at bedside. Pt hopeful for recovery. Pt indicates prayer is meaningful to him. Intervention: Provided empathic listening and prayer. Provided information on how to contact fitness sales consultant, if needed. Outcome: No need to follow at this time. MARLA GRAHAM Glass Lined Tank Repairer Spiritual Care Department O: [phone] Pager: [phone] ([phone] + number calling from)
--- NOTE | 2018-10-05 08:18 | NUR ---
left a voicemail for dr landon regarding new consult
[2018-10-05] MEDS ORDERED: FUROSEMIDE INJ 10 MG/ML 4 ML VIAL IV ONE (12:00)
[2018-10-05] MEDS: METOPROLOL TARTRATE 25 MG TAB PO SCH ×3 (12:29→23:54)
[2018-10-05 14:25] LABS: INR 1.61; PROTHROMBIN TIME 19.8 seconds (11.9-14.5)
[2018-10-05 14:26] LABS: PARTIAL THROMBOPLASTIN TIME 28.1 seconds (23.8-35.5)
[2018-10-05 14:34] LABS: AMYLASE 28 U/L (25-125); LIPASE 25 U/L (8-78)
[2018-10-05] MEDS: MORPHINE SULFATE 2 MG/ML SYR 1ML IV PRN (15:13)
[2018-10-05] MEDS: PANTOPRAZOLE 40 MG 10ML VIAL IV SCH (15:13)
[2018-10-05 15:25] LABS: CREATINE KINASE MB 6.6 ng/mL (0-5.0)
--- NOTE | 2018-10-05 15:28 | NUR ---
Nutrition Screen Note RD Recommendation(s) for Physician / Nutrition Prescription: continue with diet as prescribed Plan of Care: RD following, monitoring for tolerance and adequacy Nutrition reason for involvement: Nutrition Risk Trigger MST Primary Dx: A fib, Chest pain PMH: Known congestive heart failure, cardiomyopathy, LifeVest in place. Liver cirrhosis recently diagnosed with most likely from congestive heart failure, cardiomyopathy, and congestion. Chronic kidney disease stage 3 per note. Atrial fibrillation and medical debility, polysubstance abuse Ht: 73in Wt: 185lb BMI: 24.4kg/m2 IBW: 184lb +/- 10% RD Assessment: 10/05 - 48yo M, who was admitted for chest pain. Pt was well known to me from his previous admission on 09/15/2018. Visited pt in the room. Pt reported fair appetite. Pt complained of not wanting to eat much due to bloating. Pt stated I have had this bloating on and off. Pt was on Lasix and Eliquis due to hx of CHF. Unable to determine actual weight due to fluids retention. LBM 10/05. Pt denied any chewing or swallowing difficulty. Pt was in discomfort and would like RD to return later for diet education. Will continue to monitor and follow. Malnutrition Evaluation (10/05/2018) The patient does not meet criteria for a specified degree of malnutrition at this time. Will re-evaluate at follow-up as appropriate. Diet Education Needs Assessment: Diet education indicated, will return for education. Nutrition Care Level: Low Michelle Al, MS, RD, LD
--- NOTE | 2018-10-05 16:33 | Diagnostic Imaging Report ---
EXAM: Limited Ultrasound Evaluation of the abdomen INDICATION: ^Ascites COMPARISON: None TECHNIQUE: Grayscale images of the 4 quadrants of the abdomen were obtained. FINDINGS: Small volume ascites in the right abdomen. IMPRESSION: Small volume ascites in the right abdomen, insufficient to safely perform therapeutic paracentesis. Signed by: Trinidad Pickering MD on 10/05/2018 4:30 PM
--- NOTE | 2018-10-05 17:37 | NUR ---
consult called to Dr. Cid
[2018-10-05] MEDS: ONDANSETRON HCL INJ 2MG/ML 2ML 2 MG/ML VIAL IV PRN (20:28)
[2018-10-06] VITALS (23 sets, daily range): BP systolic 80–128; BP diastolic 53–102
--- NOTE | 2018-10-06 00:03 | History and Physical ---
CHIEF COMPLAINT: The patient comes in with abdominal pain. HISTORY OF PRESENT ILLNESS: This is a 48-year-old gentleman with a history of cirrhosis of the liver, history of CKD, history of severe cardiomyopathy with a history of being discharged on LifeVest, history of hepatic encephalopathy, was in usual state of health. The patient started to have abdominal pain. The patient came to the emergency room, was found to have acute renal failure, acute encephalopathy, and also cardiomyopathy. The patient admitted for the same. PAST MEDICAL HISTORY: History of congestive heart failure, history of cardiomyopathy, history of LifeVest, history of liver cirrhosis secondary to congestive heart failure, history of CKD, history of atrial fibrillation. 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 No history of smoking. No history of alcohol abuse recently. ALLERGIES: NO DRUG ALLERGIES NOTED. MEDICATIONS: The patient's medications list include Bumex 1 mg daily, lactulose 10 g daily, metoprolol 50 mg twice a day, trazodone 50 mg at bedtime, and Eliquis 5 mg twice a day, but the patient apparently has not been taking for a long time. PHYSICAL EXAMINATION: VITAL SIGNS: Temperature is 97.5, pulse of 90, respirations of 23, blood pressure is 94/43, pulse oximetry of 96% O2 at 2 L. HEENT: Normocephalic, atraumatic. The patient has icterus present. The patient is confused. CVS: S1 and S2 irregular. ABDOMEN: Distended. EXTREMITIES: No clubbing, no cyanosis, no edema. LABORATORY VALUES: Sodium was 128, potassium 4.9, BUN of 67, creatinine of 2.83, ALT was 64, AST of 35, bilirubin of 3.7, CK-MB of 6.40. Coags; INR 1.62, PTT 28.1. Hematology; white count 9.83, hemoglobin of 12.5, hematocrit of 38.7, RDW 17.1. Urine, few bacteria. MICROBIOLOGY: Not done today. ASSESSMENT: 1. Jopdm-kh-cfgacby systolic heart failure, biventricular. 2. Liver cirrhosis secondary to heart failure. 3. History of substance abuse. 4. Chronic kidney disease. 5. Hyponatremia. 6. Cardiomyopathy with atrial fibrillation. PLAN: A consult with Cardiology has been done with the ascites, a paracentesis has been ordered. Consult with Dr. Brian Irving has been done for possible portal hypertension. The patient will get on Protonix at this time. The patient is back on the LifeVest. Discussed in detail the need or want of AICD. A consult with Dr. Carlin has been done too. Ammonia level will be done to rule out encephalopathy and morphine 2 mg for pain control has been administered. The patient currently is on Bumex, metoprolol, morphine sulfate, and pantoprazole. Eliquis will be restarted after paracentesis. Again, a consult with Dr. Brian Irving has been done too. Further recommendation per clinical course. We will continue to monitor the patient. MD AMADEO Mendez/MODL /[id number]
--- NOTE | 2018-10-06 01:28 | Consultation ---
DATE OF CONSULTATION: 10/05/2018 Cardiology Consult Note REASON FOR CONSULT: Chronic systolic CHF, atrial fibrillation, and nonsustained ventricular tachycardia. CHIEF COMPLAINT: Shortness of breath and abdominal pain. HISTORY OF PRESENT ILLNESS: The patient is a 48-year-old man, who is well known to our service. He has history of chronic systolic biventricular CHF with LVEF less than 20%, severe RV dysfunction resulting in cirrhosis, also has history of advanced chronic kidney disease with possible component of cardiorenal and hepatorenal syndrome. He has been frequently admitted over the last several months with acute on chronic systolic CHF exacerbation, episodes of respiratory failure, renal failure, and hypotension. Once again presents with AFib with RVR and acute on chronic systolic heart failure exacerbation. Also noted to have nonsustained ventricular tachycardia. The patient says that he was in usual state of health until recently and he developed abdominal pain, palpitations, shortness of breath. He says he is compliant with medication. PAST MEDICAL HISTORY: 1. Right ventricular systolic heart failure. 2. Chronic kidney disease. 3. Cirrhosis. 4. Atrial fibrillation. REVIEW OF SYSTEMS: As per HPI, otherwise negative. FAMILY HISTORY: Noncontributory. SOCIAL HISTORY: The patient used to drink, but quit. Does not smoke or abuse drugs. OUTPATIENT MEDICATIONS: Reviewed. ALLERGIES: DOCUMENTED IN THE MAR. OBJECTIVE: VITAL SIGNS. Temperature afebrile, pulse 120, blood pressure 90/60, and saturating 95% on nasal cannula. GENERAL: White man, looks uncomfortable, mild respiratory distress. CARDIOVASCULAR: Irregular rate and rhythm. Tachycardic. No murmurs. LUNGS: Bibasilar rales. ABDOMEN: Soft. Mildly tender in the epigastric area. Nondistended. NEURO AND PSYCH: Alert and oriented to person, place, and time. Normal affect. INPATIENT MEDICATIONS: Reviewed. LABORATORY DATA: Reviewed. TELEMETRY DATA: Reviewed, shows runs of nonsustained ventricular tachycardia, longest running about 90. ASSESSMENT AND PLAN: 1. Acute on chronic systolic heart failure exacerbation, LV ejection fraction less than 20%. 2. Chronic kidney disease. 3. Cirrhosis. 4. Abdominal pain. 5. Atrial fibrillation. 6. Nonsustained ventricular tachycardia. PLAN: Check electrolytes and replete as needed. We will start diuresing with some Bumex. We will stop his home digoxin, given poor renal function of diltiazem drip and changed to p.o. metoprolol for better rate control. Continue other cardiovascular medications otherwise. Thank you for this consult. We will continue to follow. MD FANY Fields/NITHIN /[id number]
[2018-10-06 05:03] LABS: BASOPHILS % 0.2 % (0.0-1.0); EOSINOPHILS % 0.2 % (0.0-6.0); HEMOGLOBIN 11.2 g/dL (14.0-18.0); LYMPHOCYTES # (AUTO) 1.7 (1.0-3.2); LYMPHOCYTES % 19.9 % (18.0-39.1); MEAN CORPUSCULAR HEMOGLOBIN 30.4 pg (28-32); MEAN CORPUSCULAR VOLUME 94.9 fL (81-99); MONOCYTES # (AUTO) 1.7 (0.2-0.8); NEUTROPHILS # (AUTO) 5.3 (2.1-6.9); NEUTROPHILS % 60.4 % (38.7-80.0); PLATELET COUNT 208 x10e3/uL (140-360); RED BLOOD COUNT 3.69 x10e6/uL (4.3-5.7); RED CELL DISTRIBUTION WIDTH 16.7 % (11.7-14.4)
[2018-10-06 05:26] LABS: ALBUMIN 3.5 g/dL (3.5-5.0); ALBUMIN/GLOBULIN RATIO 1.3 (0.8-2.0); ANION GAP 21.8 mmol/L (8-16); CALCIUM 9.2 mg/dL (8.4-10.2); CREATININE, SERUM 3.44 mg/dL (0.72-1.25); POTASSIUM 5.8 mmol/L (3.5-5.1)
[2018-10-06] MEDS: METOPROLOL TARTRATE 25 MG TAB PO SCH ×3 (05:46→14:14)
[2018-10-06] MEDS ORDERED: LACTULOSE SYRUP 20 GM/30 ML UDC PO ONE ×2 (07:00→15:04)
[2018-10-06 07:05] LABS: BAND NEUTROPHILS % (MANUAL) 2 %; EOSINOPHILS % (MANUAL) 1 % (0-7); LYMPHOCYTES % (MANUAL) 15 % (19-48); MONOCYTES % (MANUAL) 13 % (3.4-9.0); NEUTROPHILS % (MANUAL) 69 % (40-74)
[2018-10-06 07:06] LABS: ANISOCYTOSIS S; PLATELET ESTIMATE ADEQUATE; PLATELET MORPHOLOGY COMMENT NORMAL; POIKILOCYTOSIS S; RBC MORPHOLOGY COMMENT NORMAL
[2018-10-06] MEDS: MORPHINE SULFATE 2 MG/ML SYR 1ML IV PRN (07:16)
--- NOTE | 2018-10-06 07:55 | Progress Note ---
DATE: SUBJECTIVE: The patient is a 48-year-old male, who comes in with acute encephalopathy, acute congestive heart failure, history of cirrhosis of the liver and history of acute on chronic kidney injury. The patient currently is complaining of right shoulder pain. Paracentesis was not able to be done yesterday secondary to lack of fluid. The patient is otherwise asymptomatic. No chest pain. No shortness of breath. Positive for shoulder pain as mentioned above. OBJECTIVE: VITAL SIGNS: Temperature is 97.9, pulse of 97, respirations of 13, blood pressure is 89/53, and pulse oximetry of 100% O2 by nasal cannula 2 L. HEENT: Normocephalic and atraumatic. Positive for icterus. CVS: S1 and S2 irregular. ABDOMEN: Nontender and nondistended. EXTREMITIES: No clubbing, no cyanosis, no edema. LABORATORY VALUES: Today's sodium is 123, potassium 5.8, chloride of 89, BUN of 82, and creatinine of 3.44. Ammonia was 73. CK and CK-MB, and troponin within normal limits. Amylase and lipase of 28 and 25. Microbiology labs pending. IMAGING STUDIES: Abdominal ultrasound done yesterday prior to trial of paracentesis, shows insufficient to safely perform therapeutic paracentesis. ASSESSMENT: 1. Right ventricular systolic heart failure. 2. Tbwba-dx-yhsgvpy kidney injury. 3. Hyponatremia. 4. Hyperkalemia. 5. Atrial fibrillation. 6. Nonsustained ventricular tachycardia. 7. Abdominal pain. PLAN: We will continue on diuresis. Diltiazem changed to metoprolol p.o., also restart his Eliquis. A consult with Renal will also be done. The patient will also need lactulose and/or Kayexalate for his hyperkalemia. Further recommendation per clinical course. A consult with renal also will be done. MD AMADEO Mendez/MODL /[id number]
[2018-10-06] MEDS: PANTOPRAZOLE 40 MG 10ML VIAL IV SCH (08:43)
[2018-10-06] MEDS: APIXAB 2.5 MG TABLET PO SCH ×2 (08:48→20:27)
[2018-10-06] MEDS ORDERED: BUMETANIDE 1 MG TAB PO SCH (09:00)
[2018-10-06] MEDS ORDERED: SODIUM BICARBONATE 8.4% SYRING 150 ML in DEXTROSE 5% 1,000 ML IV SCH (15:11)
[2018-10-06] MEDS ORDERED: ALBUMIN 5% 0.05 GM/ML BTL IV ONE (15:15)
[2018-10-06 15:30] LABS: ABG HCO3 19 mmol/L (23-28); ABG PCO2 32 mmHg (41-51); ABG PH 7.38 (7.31-7.41); ABG PO2 98 mmHg (80-105)
[2018-10-06] MEDS ORDERED: SOD POLYSTYRENE SULFONATE SUSP 15 GM/60 ML BTL PO ONE (16:15)
--- NOTE | 2018-10-06 16:24 | NUR ---
DR PÉREZ ROUNDED. PT IS REFUSING FC AT THIS TIME, STATES WHEN HE SPOKE WITH DR PÉREZ HE MENTIONED IT BUT HE IS ABLE TO URINATE ON HIS OWN SO DOES NOT WANT FC AT THIS TIME. ED PT, PT REFUSED. ED PT TO USE URINAL AND HAVE NURSE OR PCT DOCUMENT ALL OUTPUT.
--- NOTE | 2018-10-06 16:42 | Progress Note ---
DATE: 10/06/2018 Cardiology Progress Note SUBJECTIVE: No major events overnight. OBJECTIVE: VITAL SIGNS: Temperature afebrile, pulse 113, respiratory rate 18, blood pressure 107/82, and saturating 97% on room air. GENERAL: He is sleeping comfortably, in no acute distress. CARDIOVASCULAR: Tachycardic, irregular rate and rhythm. No murmurs, rubs, or gallops. LUNGS: Bibasilar rales. ABDOMEN: Soft, nontender, and nondistended. NEUROLOGIC AND PSYCHIATRIC: Alert and oriented to person, place, and time. Normal affect. INPATIENT MEDICATIONS: Reviewed. LABORATORY DATA: Reviewed. IMAGING DATA: Reviewed. ASSESSMENT: 1. Acute on chronic systolic congestive heart failure exacerbation. Left ventricular ejection fraction less than 20%. 2. Chronic atrial fibrillation. 3. Acute kidney injury on chronic kidney disease. 4. Cirrhosis. 5. Abdominal pain. 6. Atrial fibrillation. PLAN: Renal function continues to deteriorate. We will defer to Nephrology. May need temporary dialysis again. Continue metoprolol as tolerated by blood pressure for rate control. Blood pressure is too low to add any FAWAD or ARB, especially given INESSA. Continue apixaban 2.5 mg given poor renal function. Thank you for this consult. We will continue to follow. MD AFNY Fields/NITHIN /[id number]
[2018-10-06] MEDS: SOD POLYSTYRENE SULFONATE SUSP 15 GM/60 ML BTL PO ONE (17:03)
--- NOTE | 2018-10-06 18:53 | NUR ---
PT WAS "WANTING TO TAKE HIS TIME" WITH ADMIN OF LACTULOSE AND KAYEXALATE. THEN IR CAME FOR PLACEMENT AND NOW IN [facility] FOR VQ SCAN. REMINDED PT SEVERAL TIMES TO TAKE KAYEXALATE, PT BEGAN SPEAKING IRRITABLY ABOUT HAVING 'EXPLOSIVE BOWELS AND NOT TO NEGRO ME". PT IS TO TRANS TO [place] FLOOR AFTER SCAN, WILL HAVE NURSE ADMIN.
--- NOTE | 2018-10-06 19:37 | Diagnostic Imaging Report ---
Examination: Single AP view of the chest. COMPARISON: Portable chest 10/04/2018 INDICATION: Dialysis catheter placement IMPRESSION: 1. Lines and Tubes: Interval placement of right IJ dialysis catheter, with distal tip projecting at the level of the distal SVC. 2. Lungs are grossly clear. No consolidation or effusion. 3. Stable marked enlargement of the cardiac silhouette. Mild central pulmonary venous congestion. 4. No acute bony abnormalities. Signed by: Dr. Ben Grullon M.D. on 10/06/2018 7:34 PM
--- NOTE | 2018-10-06 20:13 | Consultation ---
DATE OF CONSULTATION: 10/06/2018 HISTORY OF PRESENT ILLNESS: Mr. Troy Monge known to me, 48-year-old gentleman, history of polysubstance abuse, this time came in with shortness of breath, looks very ill, sitting up in a chair. Found to have acute kidney injury. He was discharged with a serum creatinine in the 2.6 range. He required temporary dialysis during his last admission. At that time, his urine drug screen was positive for amphetamines. Today, sodium 123, potassium 5.8, bicarbonate 18, BUN 82, and creatinine 3.4. He has a white count of 8.7 and hemoglobin 11.2 with a urinalysis showing specific gravity 1.020, wbc 11 to 20. Urine drug screen this time is negative. Chest x-ray, please see official report, shows evidence of cardiomegaly and mild bilateral pulmonary vascular congestion. Had an abdominal ultrasound done, please see official report, shows small volume ascites. The patient denies any fever, chills, or chest pain, but appears dyspneic. He has been complaining of cramps at home and abdominal discomfort. ALLERGIES: NO APPARENT DRUG ALLERGIES. CURRENT MEDICATIONS: Bumex 2 mg p.o. daily, apixaban, Eliquis 2.5 b.i.d., lactulose syrup, metoprolol 12.5 p.o. q.6, morphine, ondansetron p.r.n., and pantoprazole. PHYSICAL EXAMINATION: GENERAL: The patient appears sitting up, appears pale, appears ill, in ggpn-qn-cfmfayyg dyspnea. VITAL SIGNS: Blood pressure is 119/102, pulse is 113, respiratory rate 22 with oxygen saturation 97%. HEAD AND NECK: Cornea clear. Mucosa dry. Neck veins flat. LUNGS: Decreased air entry right lower zone, but relatively clear. No rales. HEART: S1 and S2 audible. Questionable S3 gallop. ABDOMEN: Soft and nontender. EXTREMITIES: Lower extremity, no edema. IMPRESSION: Acute kidney injury, hyponatremia, metabolic acidosis, szkid-iy-mqmzvdi kidney failure, underlying acute tubular necrosis, cardiomyopathy, very poor ejection fraction, cardiomegaly, rule out pericardial effusion. We must rule out pulmonary embolism, also hyperkalemic. I will give Kayexalate and lactulose, place on a renal diet, 16-[place], IV bicarbonate gently at 50 mL an hour. IV albumin right now. We will obtain V/Q scan. Obtain stat ABG. We will get a temporary dialysis catheter placed. The patient will most likely need dialysis. Overall prognosis poor. MD TAYLOR Healy/NITHIN /[id number]
--- NOTE | 2018-10-06 20:24 | Diagnostic Imaging Report ---
Ventilation/perfusion lung scan Clinical Information: Chest pain; atrial fibrillation; difficulty breathing Comparison: Chest radiograph10/04/2018; CT chest without contrast 09/19/2018 Discussion: Xenon-133 gas 10 mCi was administered via inhalation. Dynamic images of the lungs in the posterior projection were obtained through single breath, equilibrium, and washout phases. Distribution of tracer activity is minimally irregular throughout the lungs. A large nonsegmental ventilation defect from compression effect by the enlarged heart on the LLL is present. There are no segmental ventilatory defects. Washout of tracer is diffusely delayed with diffuse air trapping. Perfusion images of the lungs were obtained in multiple projections following intravenous administration of approximately 6 mCi of Tc-99m MAA. A large nonsegmental perfusion defect in the LLL from compression by the enlarged heart is present and matches the defect seen on the ventilation images. Distribution of tracer is minimally irregular throughout the lungs. The contours of the lungs are well demarcated. There are no segmental perfusion defects of any size. The cardiomediastinal silhouette is markedly enlarged. Impression: 1. Scan findings represent a VERY LOW probability for acute pulmonary embolic disease based on the PIOPED II criteria. 2. Scan evidence of obstructive lung disease. 3. Markedly enlarged cardiac silhouette. Signed by: Dr. Carmela Jasso M.D. on 10/06/2018 8:21 PM
[2018-10-06] MEDS: BUMETANIDE INJ 0.25MG/ML 4ML VIAL IV SCH (20:29)
--- NOTE | 2018-10-06 20:30 | NUR ---
PATIENT RECEIVED FROM RADIOLOGY PER WHEELCHAIR AT 1925. HE'S ALERT AND ORIENTED X3, NO RESPIRATORY DISTRESS OBSERVED AND HE DENIES PAIN. IV FLUID STARTED, PATIENT STATED "I TOOK THE MEDICATION IN THE BOTTLE" REFERRING TO THE KAYEXALATE THAT WAS ORDERED. CENTRAL VENOUS CATHETER INTACT TO THE RIGHT SUBCLAVIAN, IV REMOVED FROM THE LEFT AC BECAUSE IT WAS LEAKING. URINAL AND CALL LIGHT WITHIN EASY REACH, FAMILY MEMBER WITH THE PATIENT.
[2018-10-07] VITALS (9 sets, daily range): BP systolic 90–123; BP diastolic 57–73
[2018-10-07] MEDS: METOPROLOL TARTRATE 25 MG TAB PO SCH ×4 (01:20→18:00)
--- NOTE | 2018-10-07 01:40 | NUR ---
PATIENT CONDITION STABLE WITHOUT RESPIRATORY DISTRESS, HE DENIES PAIN. SNACKS GIVEN, DR. Clint CESAR SAW AND EXAMINED THE PATIENT, NO NEW ORDERS RECEIVED. CALL LIGHT AND URINAL WITHIN EASY REACH, BED ALARM ON.
[2018-10-07] MEDS: ONDANSETRON HCL INJ 2MG/ML 2ML 2 MG/ML VIAL IV PRN ×2 (04:32→21:06)
[2018-10-07] MEDS: MORPHINE SULFATE 2 MG/ML SYR 1ML IV PRN ×2 (04:33→21:24)
--- NOTE | 2018-10-07 04:33 | NUR ---
PATIENT C/O SEVERE PAIN AT THE HEMODIALYSIS CATHETER SITE RIGHT SHOULDER, MEDICATED WITH MORPHINE ORDERED. DRESSING DRY AND INTACT TO THE CATHETER SITE, CALL LIGHT AND URINAL WITHIN EASY REACH, BED ALARM ON AND HE'S INSTRUCTED TO CALL FOR ASSISTANCE UPON GETTING OUT OF THE BED.
[2018-10-07 06:27] LABS: BASOPHILS % 0.5 % (0.0-1.0); EOSINOPHILS # (AUTO) 0.1 (0.0-0.4); EOSINOPHILS % 1.1 % (0.0-6.0); HEMATOCRIT 33.7 % (38.2-49.6); HEMOGLOBIN 11.1 g/dL (14.0-18.0); LYMPHOCYTES # (AUTO) 1.6 (1.0-3.2); LYMPHOCYTES % 23.4 % (18.0-39.1); MEAN CORPUSCULAR HEMOGLOBIN 30.6 pg (28-32); MEAN CORPUSCULAR HGB CONC 32.9 g/dL (31-35); MEAN CORPUSCULAR VOLUME 92.8 fL (81-99); MONOCYTES # (AUTO) 1.2 (0.2-0.8); MONOCYTES % 17.9 % (4.4-11.3); NEUTROPHILS # (AUTO) 3.8 (2.1-6.9); NEUTROPHILS % 56.8 % (38.7-80.0); PLATELET COUNT 182 x10e3/uL (140-360); RED BLOOD COUNT 3.63 x10e6/uL (4.3-5.7); RED CELL DISTRIBUTION WIDTH 16.4 % (11.7-14.4)
[2018-10-07 06:41] LABS: ANION GAP 17.5 mmol/L (8-16); CALCIUM 8.6 mg/dL (8.4-10.2); CREATININE, SERUM 2.95 mg/dL (0.72-1.25); POTASSIUM 4.5 mmol/L (3.5-5.1)
[2018-10-07 06:56] LABS: BILIRUBIN,DIRECT 1.7 mg/dL (0.0-0.5)
--- NOTE | 2018-10-07 07:06 | Progress Note ---
DATE: SUBJECTIVE: The patient was transferred out of ICU, complains of weakness. No chest pain. Positive for some shortness of breath. No nausea or vomiting. Positive for diarrhea. No other symptoms, did very well at nighttime, but nursing reports weakness. OBJECTIVE: VITAL SIGNS: Temperature is 97.4, pulse of 54, respirations of 20, blood pressure is 120/65, and pulse oximeter of 99% on room air. HEENT: Normocephalic and atraumatic. The patient has icterus. CVS: S1 and S2, regular. ABDOMEN: Distended. EXTREMITIES: No clubbing. No cyanosis. Positive edema. LABORATORY VALUES: Today's white count is 6.66, hemoglobin of 11.1, hematocrit of 33.7, left shift present. Chemistries are pending today. Urine moderate bacteria. Toxicology is negative. Serology pending, hepatitis antigens. ASSESSMENT: Acute kidney injury, hyponatremia, metabolic acidosis, sajzp-ap-iprxqzr kidney failure, history of cardiomyopathy, history of atrial fibrillation, emjpv-be-tqgjwgk systolic heart failure with ejection fraction of 20%, and abdominal pain and cirrhosis of the liver. PLAN: Continue on Kayexalate, lactulose for improvising hypokalemia. The patient also has IV bicarbonate and IV albumin has been given. The patient's ABG has been obtained yesterday and temporary dialysis catheter has been placed. Oral prognosis is very poor. We will continue to monitor the patient. The patient has Cardiology and Nephrology on board. Further recommendation per clinical course. Also, we will get some physical therapy for rehabilitating the patient. MD AMADEO Mendez/MODL /[id number]
--- NOTE | 2018-10-07 07:12 | NUR ---
WALKING ROUNDS PERFORMED. PATIENT AMBULATING TO BATHROOM AT THIS TIME. NOTIFIED PATIENT TO PULL CALL LIGHT IN BATHROOM IF ASSISTANCE NEEDED. PATIENT VERBALIZED UNDERSTANDING.
--- NOTE | 2018-10-07 07:21 | NUR ---
TECH NOTIFIED RN OF O2 SATS BEING IN 70's. EXPLAINED TO THE PATIENT THE IMPORTANCE OF NEEDING TO WEAR OXYGEN. PATIENT REFUSING TO WEAR OXYGEN AT THIS TIME.
--- NOTE | 2018-10-07 08:10 | NUR ---
RESPIRATORY THERAPIST TOOK O2 SATS ON LEFT INDEX. OXYGEN 100% ON RA. NO SIGNS OF DISTRESS. CALL LIGHT IN REACH WILL CONTINUE TO MONITOR PATIENT.
[2018-10-07] MEDS: BUMETANIDE INJ 0.25MG/ML 4ML VIAL IV SCH ×2 (08:48→21:17)
[2018-10-07] MEDS: APIXAB 2.5 MG TABLET PO SCH ×2 (08:48→17:54)
[2018-10-07] MEDS: PANTOPRAZOLE 40 MG 10ML VIAL IV SCH (08:48)
--- NOTE | 2018-10-07 11:41 | Progress Note ---
DATE: Cardiology Progress Note SUBJECTIVE: The patient complains of some shortness of breath, fatigue, back pain and weakness. OBJECTIVE: VITAL SIGNS: Temperature 97.4, pulse 113, respiratory rate 18, blood pressure 90/64, oxygen saturation 100% on room air. GENERAL: Alert and oriented x3. Lethargic, answering questions, but falls right back asleep. NECK: Moderate JVD noted. CARDIOVASCULAR: Tachycardic, irregular rate and rhythm. Systolic murmur present. LUNGS: Bibasilar rales noted. Diminished breath sounds. ABDOMEN: Soft, nontender. EXTREMITIES: Lower extremities, 2+ nonpitting edema, venous discoloration noted. CARDIOVASCULAR MEDICATIONS: 1. Bumex 2 mg IV q.12 hours. 2. Eliquis 2.5 mg p.o. b.i.d. 3. Metoprolol 12.5 mg p.o. q.6 hours. LABORATORY DATA: WBC 6.66, hemoglobin 11.1, hematocrit 33.7, platelets 182. Sodium 125, potassium 4.5, BUN 82, creatinine 2.95. TELEMETRY: Atrial fibrillation. ASSESSMENT: 1. Lmodm-av-kpujbeu systolic heart failure. Left ventricular ejection fraction less than 20%. 2. Chronic atrial fibrillation. 3. Acute on chronic kidney disease. 4. Cirrhosis. 5. Abdominal pain. PLAN: Nephrology managing renal issues. May need dialysis. Continue the above-listed cardiac medications as blood pressure allows. Will need an Jensen or an ARB as blood pressure and kidney function allows. We will continue to reassess. Maintain patient on telemetry. Monitor mental status closely. Dictated by Ale Garcia NP MD ADELE Wagner/NITHIN /[id number]
--- NOTE | 2018-10-07 12:17 | Consultation ---
DATE OF CONSULTATION: Pulmonary Consultation HISTORY OF PRESENT ILLNESS: The patient seen approximately two weeks ago, admitted to Dr. Yeison Nam, usually followed at [facility]. He has history of biventricular failure. He is 48-year-old, admitted with abdominal pain. Ejection fraction is less than 20%. He has a history of cirrhosis related to passive congestion of the liver, though he did drink in the past, quit several years ago. History of chronic atrial fibrillation, nonsustained V-tach. Apparently, he has lost his vest. He is somewhat confused, hoping to start chronic renal failure. He quit smoking approximately several months ago and quit drinking several years ago. He is a tall white male, anxious to return to normal health and go back to work. He admits he did not follow up with [facility] or take his medications on a regular basis. He is hyponatremic on admission. MEDICATIONS: Bumex, lactulose, metoprolol, trazodone, and Eliquis. PHYSICAL EXAMINATION: VITAL SIGNS: Temperature 97.4, pulse 113, irregular, respirations 18, and blood pressure 96/50. HEENT: Head, normocephalic and atraumatic. Eyes, extraocular movements intact. LUNGS: Basilar rales. HEART: Regular rhythm. ABDOMEN: Obese. Questionable ascites. Only a small amount of fluid was visualized on the ultrasound. EXTREMITIES: Edematous. IMPRESSION: End-stage congestive heart failure, alcoholic cirrhosis, hyponatremia, and renal failure. Long-term prognosis is good. The patient is poor prognosis. There is no evidence of pulmonary embolus at this time and he is chronically on Eliquis. He may need more social service support. Thank you for this kind referral dictated by dictated this time patient. Severino Mckinley MD DS/MODL /[id number]
[2018-10-07] MEDS: SUCRALFATE 1 GM TAB PO SCH ×3 (14:05→21:06)
[2018-10-07] MEDS ORDERED: SODIUM BICARBONATE 8.4% SYRING 150 ML in DEXTROSE 5% 1,000 ML IV SCH (14:30)
--- NOTE | 2018-10-07 15:35 | NUR ---
PATIENT STATING HE NEEDS SOMETHING TO HELP HIM GO TO THE BATHROOM. PAGED DR. LOPEZ. NEW ORDER FOR LACTULOSE ONE TIME.
[2018-10-07] MEDS ORDERED: LACTULOSE SYRUP 20 GM/30 ML UDC PO ONE (15:45)
[2018-10-07] MEDS ORDERED: LACTULOSE SYRUP 20 GM/30 ML UDC PO NR (15:45)
[2018-10-07] MEDS ORDERED: SUCRALFATE 1 GM TAB PO SCH (16:30)
[2018-10-07] MEDS: SOD POLYSTYRENE SULFONATE SUSP 15 GM/60 ML BTL PO ONE (17:03)
[2018-10-07] MEDS ORDERED: FUROSEMIDE INJ 10 MG/ML 4 ML VIAL IV NR (17:30)
[2018-10-08] VITALS (7 sets, daily range): BP systolic 89–120; BP diastolic 63–80
--- NOTE | 2018-10-08 00:20 | NUR ---
Assessment done.no resp.distress.pain medication morphine 2mg iv given.ambulates in the [address].stable condition.
[2018-10-08] MEDS: METOPROLOL TARTRATE 25 MG TAB PO SCH ×5 (00:37→23:43)
--- NOTE | 2018-10-08 03:04 | NUR ---
DR. Clint CESAR DOING ROUNDS. NEW ORDER RCV FOR VENOUS DOPPLER TO LEFT LOWER EXTREMITY.
[2018-10-08 06:02] LABS: BASOPHILS % 0.8 % (0.0-1.0); EOSINOPHILS % 0.8 % (0.0-6.0); HEMATOCRIT 32.3 % (38.2-49.6); HEMOGLOBIN 10.5 g/dL (14.0-18.0); LYMPHOCYTES # (AUTO) 1.6 (1.0-3.2); LYMPHOCYTES % 30.1 % (18.0-39.1); MEAN CORPUSCULAR HEMOGLOBIN 30.2 pg (28-32); MEAN CORPUSCULAR HGB CONC 32.5 g/dL (31-35); MEAN CORPUSCULAR VOLUME 92.8 fL (81-99); MONOCYTES # (AUTO) 0.9 (0.2-0.8); MONOCYTES % 16.6 % (4.4-11.3); NEUTROPHILS # (AUTO) 2.7 (2.1-6.9); NEUTROPHILS % 51.7 % (38.7-80.0); PLATELET COUNT 167 x10e3/uL (140-360); RED BLOOD COUNT 3.48 x10e6/uL (4.3-5.7); RED CELL DISTRIBUTION WIDTH 16.1 % (11.7-14.4)
[2018-10-08 06:09] LABS: ANION GAP 17.9 mmol/L (8-16); CALCIUM 8.6 mg/dL (8.4-10.2); CREATININE, SERUM 2.42 mg/dL (0.72-1.25); POTASSIUM 3.9 mmol/L (3.5-5.1)
--- NOTE | 2018-10-08 06:40 | NUR ---
rounds done.received new orders.
[2018-10-08] MEDS ORDERED: LACTULOSE SYRUP 20 GM/30 ML UDC PO ONE (06:45)
--- NOTE | 2018-10-08 07:01 | NUR ---
BED SIDE SHIFT REPORT GIVEN TO THE ONCOMING RN.WALKING ROUNDS DONE.STABLE CONDITION.
--- NOTE | 2018-10-08 07:32 | NUR ---
RECEIVED PATIENT AWAKE NO SIGNS OF DISTRESS. BED LOW, WHEELS LOCKED, SIDE RAILS X2. CALL LIGHT IN REACH WILL CONTINUE TO MONITOR PATIENT.
--- NOTE | 2018-10-08 08:11 | Progress Note ---
DATE: SUBJECTIVE: The patient is here for cirrhosis of liver, acute on chronic systolic heart failure, lower left ventricular fraction, chronic atrial fibrillation, and acute on chronic kidney injury. Currently, the patient is better. No chest pain noted. The patient has some shortness of breath and weakness on exertion. Bowel movements have been good. The patient has no abdominal pain either. OBJECTIVE: VITAL SIGNS: Temperature is 96, pulse of 88, respirations of 18, and blood pressure is 110/63. HEENT: Normocephalic, atraumatic. Icterus present. CVS: S1-S2 irregular. ABDOMEN: Distended. EXTREMITIES: No clubbing, no cyanosis. Positive for edema. LABORATORY VALUES: Hemoglobin of 10.5, hematocrit of 32.3. Chemistries show sodium of 128, BUN of 72, creatinine of 2.42, bilirubin is 1.7. MEDICATIONS: The patient is on metoprolol 12.5 q.6 hours p.o., morphine sulfate as needed, Bumex 2 mg q.12 hours, Carafate 1 g before meals and at bedtime, apixaban 2.5 mg twice a day, pantoprazole 40 daily, and sodium bicarbonate 650 mg twice a day. ASSESSMENT: 1. Acute on chronic congestive heart failure. 2. Acute renal failure. 3. Atrial fibrillation. 4. Acute on chronic kidney injury. 5. Cirrhosis of the liver. 6. Nonsustained ventricular tachycardia. PLAN: The patient is on beta-blockade. We will continue that. Renal consult is onboard. The patient has bicarb added for acute renal failure, also has Kayexalate given for his hyperkalemia yesterday. Cirrhosis of the liver, we will continue to monitor the patient's ascites. We will need Lay Up Operator for rehab facility. Further recommendation per clinical course. We will continue to monitor the patient. In the meantime, the patient will be continued on Eliquis twice a day. MD AMADEO Mendez/MODL /[id number]
[2018-10-08] MEDS: PANTOPRAZOLE 40 MG 10ML VIAL IV SCH (09:30)
[2018-10-08] MEDS: SODIUM BICARBONATE 650 MG TAB PO SCH ×2 (09:30→16:54)
[2018-10-08] MEDS: SODIUM CHLORIDE 1 GM TAB PO SCH ×2 (09:30→16:54)
[2018-10-08] MEDS: BUMETANIDE INJ 0.25MG/ML 4ML VIAL IV SCH ×2 (09:30→20:57)
[2018-10-08] MEDS: APIXAB 2.5 MG TABLET PO SCH ×2 (09:30→16:54)
[2018-10-08] MEDS: SUCRALFATE 1 GM TAB PO SCH ×4 (09:30→20:57)
--- NOTE | 2018-10-08 09:45 | NUR ---
PATIENT A/O X3, EVEN RESPIRATIONS ON RA. BOWEL SOUNDS ACTIVE, SKIN INTACT, 2+ EDEMA TO BLE. TELEMETRY #27 A FIB. PATIENT AMBULATES INDEPENDENTLY. NO PAIN IR DISCOMFORT AT THIS TIME. RIGHT AC 18 GAUGE IV SL. RIGHT SUBCLAVIAN TEMP. CATHETER. CALL LIGHT IN REACH WILL CONTINUE TO MONITOR PATIENT.
--- NOTE | 2018-10-08 12:17 | Progress Note ---
DATE: Cardiology Progress Note SUBJECTIVE: The patient reports some shortness of breath, especially with exertion. Also a lot of fatigue and bilateral lower extremity edema. OBJECTIVE: VITAL SIGNS: Temperature 96.0, pulse 107, respiratory rate 20, blood pressure 106/76, oxygen saturation 100% on room air. GENERAL: Alert and oriented x3. Resting comfortably in bed, does not appear to be in any acute distress. NECK: Moderate JVD noted. CARDIOVASCULAR: Tachycardic, irregular rate and rhythm. Systolic murmur is present. Rhonchi and basilar rales are noted. Diminished breath sounds. ABDOMEN: Soft, nontender. EXTREMITIES: Lower extremity 2+ pitting edema with venous discoloration noted. CARDIOVASCULAR MEDICATIONS: 1. Bumex 2 mg q.12 hours. 2. Apixaban 2.5 mg p.o. b.i.d. 3. Metoprolol 12.5 mg p.o. q.6 hours. LABORATORY DATA: WBC 5.18, hemoglobin 10.5, hematocrit 32.3, platelets 167. Sodium 128, potassium 3.9, BUN 72, creatinine 2.42. TELEMETRY: Atrial fibrillation with moments of RVR. ASSESSMENT: 1. Uqosq-cs-ygovuvx systolic heart failure. Left ventricular ejection fraction less than 20%. 2. Chronic atrial fibrillation. 3. Acute on chronic kidney disease. 4. Cirrhosis. 5. Abdominal pain. PLAN: Neurology managing volume and other renal issues. May need dialysis. Continue the above listed cardiac medication. Once renal issues have been addressed, patient will need ischemic workup. Also consider an Jensen or an ARB once blood pressure and kidney function allows. Maintain the patient on telemetry at all time. We will continue to monitor this patient. Dictated by Ale Garcia NP MD ADELE Wagner/NITHIN /[id number]
--- NOTE | 2018-10-08 12:50 | Diagnostic Imaging Report ---
Abdomen/KUB INDICATION: Abdominal distention on an off for several months ^distended COMPARISON: None. FINDINGS: Images are mildly motion degraded. Medical Devices: None Bowel: No bowel dilatation. Bowel gas pattern is unremarkable. Mild to moderate burden of stool throughout. Free air: None Abdominal calcifications: None Organomegaly: None Lung bases: The heart is enlarged. Bones: No focal osseous lesions. IMPRESSION: Unremarkable bowel gas pattern. Cardiomegaly. Signed by: Dr. Darien Busch MD on 10/08/2018 12:47 PM
--- NOTE | 2018-10-08 20:10 | NUR ---
Aaox3.ambulates in the [address] way.assessment done.no resp.distress.tele showing afib.voided.bed locked and in lowest position.phone and call light within reach.instructed to call for assistance as needed.
[2018-10-08] MEDS: ONDANSETRON HCL INJ 2MG/ML 2ML 2 MG/ML VIAL IV PRN (23:42)
[2018-10-08] MEDS: MORPHINE SULFATE 2 MG/ML SYR 1ML IV PRN (23:43)
--- NOTE | 2018-10-08 23:59 | NUR ---
is doing rounds.neck pain voiced 10/07.medicated with morphine 2mg iv.keep monitor the pt.
[2018-10-09] VITALS (7 sets, daily range): BP systolic 86–124; BP diastolic 63–77
[2018-10-09] MEDS: METOPROLOL TARTRATE 25 MG TAB PO SCH ×4 (05:56→17:44)
--- NOTE | 2018-10-09 07:00 | NUR ---
bedside rounds complete no distress noted, updated on poc voiced understanding, denies pain at this time, r subclavian trialysis intact, r ac 18g no ss of infiltration noted, no other co voiced call Light in reach will continue to monitor
--- NOTE | 2018-10-09 07:11 | NUR ---
Received new pain medication order from .Bed side shift report given to the oncoming rn.stable condition.
[2018-10-09] MEDS ORDERED: HYDROCODONE/APAP 5MG-325MG TAB PO PRN (07:15)
--- NOTE | 2018-10-09 07:50 | NUR ---
ASSESSMENT: Spiritual concern Pt reflecting on possessions and loss. Intervention: Provided empathic listening. Facilitated storytelling. Outcome: Will follow as able. MARLA GRAHAM Manager Operations And Procurement Spiritual Care Department O: [phone] Pager: [phone] ([phone] number calling from)
--- NOTE | 2018-10-09 08:31 | Diagnostic Imaging Report ---
PROCEDURE: Non-tunneled central venous catheter placement Procedural Personnel Attending physician(s): Trinidad Pickering MD Fellow physician(s): None Resident physician(s): None Advanced practice provider(s): None Pre-procedure diagnosis: Acute kidney injury Post-procedure diagnosis: Same Indication: Performance of hemodialysis Additional clinical history: None Complications: No immediate complications. IMPRESSION: Insertion of right-sided non-tunneled triple-lumen temporary trialysis catheter. Subsequent chest radiograph shows tip at the distal SVC. Plan: The catheter may be used immediately. PROCEDURE SUMMARY: - Venous access with ultrasound guidance - Non-tunneled central venous catheter insertion with fluoroscopic guidance - Additional procedure(s): None PROCEDURE DETAILS: Pre-procedure Consent: Informed consent for the procedure including risks, benefits and alternatives was obtained and time-out was performed prior to the procedure. Preparation (MIPS): The site was prepared and draped using all elements of maximal sterile barrier technique including sterile gloves, sterile gown, cap, mask, large sterile sheet, sterile ultrasound probe cover, hand hygiene and cutaneous antisepsis with 2% chlorhexidine. Medical reason for site preparation exception (MIPS): Not applicable Anesthesia/sedation Level of anesthesia/sedation: No sedation Anesthesia/sedation administered by: Independent trained observer under attending supervision with continuous monitoring of the patient?s level of consciousness and physiologic status Access Local anesthesia was administered. The vessel was sonographically evaluated and determined to be patent. Real time ultrasound was used to visualize needle entry into the vessel and a permanent image was stored. Vein accessed: Internal jugular vein Access technique: 19 gauge access needle Catheter placement The access site was dilated and the catheter was placed into the vein over a wire under fluoroscopic guidance. The catheter tip location was fluoroscopically verified and a permanent image was stored.. A sterile dressing was applied. Catheter placed: Trialysis Catheter size (Beninese): 14 Catheter length (cm): 15 Catheter flush: Normal saline Catheter securement technique: Non-absorbable suture Contrast Contrast agent: None Radiation Dose None Additional Details Additional description of procedure: None Equipment details: None Specimens removed: None Estimated blood loss (mL): Less than 10 Standardized report: [email or web address] Attestation Signer name: Trinidad Pickering MD I attest that I was present for the entire procedure. I reviewed the stored images and agree with the report as written. Signed by: Trinidad Pickering MD on 10/09/2018 8:27 AM
[2018-10-09] MEDS: SUCRALFATE 1 GM TAB PO SCH ×4 (08:33→22:18)
[2018-10-09] MEDS: APIXAB 2.5 MG TABLET PO SCH ×2 (08:33→17:39)
[2018-10-09] MEDS: SODIUM BICARBONATE 650 MG TAB PO SCH ×2 (08:34→17:39)
[2018-10-09] MEDS: BUMETANIDE INJ 0.25MG/ML 4ML VIAL IV SCH ×2 (08:46→22:18)
[2018-10-09] MEDS: PANTOPRAZOLE 40 MG 10ML VIAL IV SCH (08:46)
[2018-10-09] MEDS: SODIUM CHLORIDE 1 GM TAB PO SCH ×2 (08:46→17:39)
--- NOTE | 2018-10-09 09:52 | Progress Note ---
DATE: SUBJECTIVE: The patient is here for uzufy-pe-qfbuuid congestive heart failure, atrial fibrillation, and cirrhosis with ascites. Currently, the patient is asymptomatic. No complaints, but physically weak. No chest pains. No shortness of breath. Positive for pain in the lower back. OBJECTIVE: VITAL SIGNS: Temperature is 97.8, pulse of 71, blood pressure is 86/63. HEENT: Normocephalic. Positive for icterus. CVS: S1, S2. Irregular. ABDOMEN: Nontender, but distended. EXTREMITIES: No clubbing. No cyanosis. Trace edema. LABORATORY VALUES: From yesterday, hemoglobin is 10.5, hematocrit of 32.3, BUN of 72, creatinine of 2.42. ASSESSMENT: 1. Xymsm-es-vcgjiut congestive heart failure. 2. Acute renal failure. 3. Atrial fibrillation. 4. Cirrhosis of the liver. 5. Nonsustained ventricular tachycardia. PLAN: The patient continues to be on beta-blockade, is on apixaban for atrial fibrillation. We will continue monitoring his renal failure, is on Kayexalate as needed for hypokalemia and also for hepatic encephalopathy. Continue to monitor the patient. SNF consult has been done. Once bed available, the patient can be transferred. MD AMADEO Mendez/NIHTIN /[id number]
--- NOTE | 2018-10-09 14:21 | NUR ---
CALLED MADAY JERRY [phone] EXT [phone] AND LEFT MESSAGE TO RETURN CALL TO DETERMINE IF SNF OR HOME HEALTH BENEFITS AVAILABLE FOR PT IN NETWORK AND REQUIREMENTS TO MEET.
--- NOTE | 2018-10-09 19:00 | NUR ---
BEDSIDE SHIFT REPORT GIVEN TO ONCOMING RN, PT LEFT IN STABLE CONDITION
--- NOTE | 2018-10-09 19:00 | NUR ---
Report taken from morning staff Elyse.pt is lyeing in the bed.stable condition.
[2018-10-10] VITALS: BP 100/64
[2018-10-10] MEDS: METOPROLOL TARTRATE 25 MG TAB PO SCH ×3 (00:09→12:12)
--- NOTE | 2018-10-10 01:06 | NUR ---
Ambulates in the [address] way. is doing rounds.no new new orders received.
[2018-10-10 04:00] VITALS: BP 100/61
--- NOTE | 2018-10-10 07:05 | NUR ---
RECEIVED PATIENT AWAKE RESTING IN BED NO SIGNS OF DISTRESS. BED LOW, WHEELS LOCKED, SIDE RAILS X2. CALL LIGHT IN REACH WILL CONTINUE TO MONITOR PATIENT.
--- NOTE | 2018-10-10 07:14 | NUR ---
Bed side shift report given to the oncoming Rn.stable condition.
[2018-10-10 08:00] VITALS: BP 130/80
[2018-10-10] MEDS: SUCRALFATE 1 GM TAB PO SCH ×2 (08:29→12:12)
[2018-10-10] MEDS: SODIUM CHLORIDE 1 GM TAB PO SCH (08:29)
[2018-10-10] MEDS: BUMETANIDE INJ 0.25MG/ML 4ML VIAL IV SCH (08:29)
[2018-10-10] MEDS: PANTOPRAZOLE 40 MG 10ML VIAL IV SCH (08:29)
[2018-10-10] MEDS: SODIUM BICARBONATE 650 MG TAB PO SCH (08:29)
[2018-10-10] MEDS: APIXAB 2.5 MG TABLET PO SCH (08:29)
[2018-10-10] MEDS ORDERED: MAGNESIUM HYDROXIDE 30 ML UDC PO PRN (08:30)
[2018-10-10 08:32] VITALS: BP 130/80
[2018-10-10] MEDS ORDERED: DOCUSATE SODIUM 100 MG CAP PO SCH (09:00)
--- NOTE | 2018-10-10 09:39 | Diagnostic Imaging Report ---
EXAMINATION: CHEST 2 VIEWS INDICATION: Cough COMPARISON: Chest radiograph 10/06/2018 FINDINGS: LINES/TUBES:Right IJ nontunneled hemodialysis catheter terminates in the superior vena cava. EKG leads overlie the chest. LUNGS:The lungs are well-inflated. No focal consolidation or pulmonary edema. PLEURA:No pleural effusion or pneumothorax. MEDIASTINUM:Cardiomediastinal silhouette is stably enlarged. BONES/SOFT TISSUES:No acute osseous injury. ABDOMEN:No free air under the diaphragm. IMPRESSION: No focal pneumonia or pulmonary edema. Unchanged severe cardiomegaly. Signed by: Trinidad Pickering MD on 10/10/2018 9:35 AM
--- NOTE | 2018-10-10 09:48 | Progress Note ---
DATE: SUBJECTIVE: This is a 48-year-old male who comes in with acute congestive heart failure, atrial fibrillation, cirrhosis of liver, debility, hepatic encephalopathy. The patient is currently stable. Medical conditions have been stabilized. The patient is awaiting SNF bed to be transferred for rehabilitation and care. Currently, the patient is on Eliquis 2.5 mg, Bumex, hydrocodone 5/325 for pain, metoprolol, and also pantoprazole. OBJECTIVE: VITAL SIGNS: Temperature 98.1, pulse of 116, respirations of 18, blood pressure is 100/61, pulse oximetry of 95%. HEENT: Normocephalic. Positive for icterus. CVS: S1, S2, tachy, irregular rhythm. ABDOMEN: Nontender, nondistended. EXTREMITIES: No clubbing, no cyanosis. Positive for edema. LABORATORY DATA: Hemoglobin is 10.5 and hematocrit 32.5. Chemistry; sodium of 128 and potassium 3.8, BUN of 72, creatinine of 2.42. ASSESSMENT: 1. Acute on chronic congestive heart failure. 2. Atrial fibrillation with RVR. 3. Acute renal failure. 4. Cirrhosis of the liver. 5. History of nonsustained ventricular tachycardia. 6. Hepatic encephalopathy. PLAN: Continue to monitor the patient. The patient medications have been reviewed. Stable at this point of time. We will need further care probably in a medical center setting. The patient has been advised to go and seek Cardiology and GI care in the medical center for possible heart transplant and also possible liver transplant. Further recommendation per clinical course at this time. Plan would be to transfer him to SNF when bed is available. MD AMADEO Mendez/MODL /[id number]
--- NOTE | 2018-10-10 10:32 | NUR ---
PATIENT A/O X3, EVEN RESPIRATIONS ON RA. BOWEL SOUNDS ACTIVE, SKIN INTACT, 2+ PITTING EDEMA TO BLE. RIGHT AC AND RIGHT SUBCLAVIAN IV. TELEMETRY #27 A-FIB. PATIENT AMBULATES INDEPENDENTLY. VITAL SIGNS STABLE, CALL LIGHT IN REACH ,WILL CONTINUE TO MONITOR PATIENT.
--- NOTE | 2018-10-10 11:49 | Progress Note ---
DATE: Cardiology Progress Note SUBJECTIVE: The patient confused this morning, speaking in tangential sentences. Reports lower extremity swelling. No chest pain. OBJECTIVE: VITAL SIGNS: Temperature is 96.5, heart rate is 91, respirations are 18, blood pressure is 130/80, and oxygen saturation 96% on room air. GENERAL: He is a chronically ill-appearing male in no apparent distress. CARDIOVASCULAR: Irregularly irregular. Normal rate. LUNGS: Diminished breath sounds at the bases. ABDOMEN: Soft, nontender, and nondistended. EXTREMITIES: 2+ pitting edema. LABORATORY DATA: Reviewed. Hemoglobin is 10.5. No current chemistries. TELEMETRY: Monitoring revealed episodes of atrial fibrillation with rapid ventricular response. IMPRESSION: 1. Acute on chronic systolic congestive heart failure. 2. Atrial fibrillation. 3. Acute on chronic kidney disease. 4. Liver cirrhosis. 5. Lower extremity swelling. 6. History of polysubstance abuse and medical noncompliance. 7. History of nonsustained ventricular tachycardia. 8. Encephalopathy. RECOMMENDATIONS: Continue current cardiovascular medications including Bumex 2 mg every 12 hours intravenously. His apixaban was decreased to 2.5 mg p.o. b.i.d. Continue metoprolol for heart rate control. Avoid FAWAD inhibitor or ARBs given acute on chronic kidney disease. The patient has advanced liver and heart failure. He has lack of insight to his medical condition. The patient will need significant rehabilitation or fpc facility upon discharge. We will try to optimize his heart failure medications prior to discharge. The patient will need followup with advanced heart failure and Gastroenterology if he can show that he is compliant with medications and avoiding all illicit substances. Ramon Delgado DO BM/MODL /[id number]
[2018-10-10 11:51] VITALS: BP 118/65
[2018-10-10] MEDS ORDERED: SODIUM CHLORIDE 1 GM TAB PO SCH (12:45)
--- NOTE | 2018-10-10 13:15 | NUR ---
Received order for home health. CM spoke to pt and his mom at bedside. Informed them of services that home health provides. Pt is agreeable. States he has never used home health before. Informed pt he has right in decision making in his care. States can use any company that takes his insurance. Choice letter signed for [facility] and placed in chart. Copy to pt. ROLAND spoke to Kimmy with intake at [facility] and she verified that they are currently taking pt's insurance. Referral was faxed to [facility] and informed of discharge today.
--- NOTE | 2018-10-10 15:45 | NUR ---
REMOVED PATIENTS RIGHT AC IV AND CVC. CATHETER TIPS INTACT AND PRESSURE DRESSING APPLIED.
--- NOTE | 2018-10-10 16:13 | NUR ---
PATIENT DISCHARGED FROM FACILITY. PATIENT GATHERED ALL PERSONAL BELONGINGS, DISCHARGE INSTRUCTIONS, AND FOLLOW UP INFORMATION. LEFT UNIT IN WHEELCHAIR AND WENT HOME VIA PRIVATE AUTO.
== END 2018-10-10 16:14 | disposition home health service (06) | DRG 291 ==
LOC: ER 22:17 → ERHOLD 10-05 02:40 → ICU 10-05 02:42 → MED/SURG 10-06 19:16
PROVIDERS: ADMIT Family Medicine; ATTEND Family Medicine
PROC: 02HV33Z Insertion of Infusion Device into Superior Vena Cava, Percutaneous Approach (ICD-10-PCS; principal; 2018-10-09)
DX: I50.23 Acute on chronic systolic (congestive) heart failure (principal); N17.0 Acute kidney failure with tubular necrosis; I13.0 Hypertensive heart and chronic kidney disease with heart failure and stage 1 through stage 4 chronic kidney disease, or unspecified chronic kidney disease; E87.1 Hypo-osmolality and hyponatremia; E87.2 Acidosis; N18.4 Chronic kidney disease, stage 4 (severe); I47.2 Ventricular tachycardia; I42.9 Cardiomyopathy, unspecified; F19.10 Other psychoactive substance abuse, uncomplicated; Z79.01 Long term (current) use of anticoagulants; I50.82 Biventricular heart failure; J44.9 Chronic obstructive pulmonary disease, unspecified; E87.5 Hyperkalemia; I48.2 Chronic atrial fibrillation; Z91.19 Patient's noncompliance with other medical treatment and regimen; K70.30 Alcoholic cirrhosis of liver without ascites; F10.20 Alcohol dependence, uncomplicated
CPT/HCPCS: 36415; 36556; 36600; 71045; 71046; 74018; 74470; 76705; 76937; 78582; 80048; 80053; 80307; 81001; 82140; 82150; 82248; 82550; 82553; 82805; 83690; 83735; 84155; 84484; 85025; 85610; 85730; 93005; 93971; 94667; 99284; C1769; J1160; J1940; J2270; J2405; J7050; J7070; P9045